=== PATIENT | female | born 1995 | race Caucasian/White ===

== ENCOUNTER → 2019-06-19 17:17 | Outpatient (BNVA) | payer OTHER, SELFPAY | PROVIDERS: Family Provider Family Medicine; PCP Family Medicine; Visit Provider Nurse Practitioner | DX: K52.9 Noninfective gastroenteritis and colitis, unspecified (principal) | CPT/HCPCS: 87804 ==

== ENCOUNTER 2019-07-14 18:08 | Emergency (ER) | payer OTHER, SELFPAY ==
[2019-07-14 18:38] VITALS: BP 153/121; PULSE 93; RESP 20; TEMP 36.7; O2SAT 99; BMI 49.7
--- NOTE | 2019-07-14 20:27 | W.ED.BACK ---
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[facility] [place] and she reached into pull a somewhat heavy laundry out of the machine with both arms and felt a twinge in her left shoulder area and then she continue to work and was reaching with her right arm and felt she felt a twinge and right side of her back MD elicited complaint: back pain and other Pertinent past history: prior back pain and other (Left posterior shoulder says she has a bad left shoulder) Onset (ago): hour(s) Timing: constant Similar Symptoms Previously: No Quality: burning and aching Location: right lower back and left upper back Radiation: none Relieving factors: none Context: while lifting Associated symptoms: Deny abdominal pain, chills, fever(s), nausea or vomiting Review of Systems Const: Denies: fever, chills or body aches Eyes: Denies: change in vision or blurry vision ENMT: Denies: throat pain or nasal congestion Card: Denies: chest pain or shortness of breath on exertion Resp: Denies: shortness of breath, productive cough or non-productive cough GI: Denies: abdominal pain, nausea or vomiting Musc: Reports: joint pain (Left shoulder), limited range of motion and other (Back pain right side); Denies: extremity pain Skin/Breast: Denies: rash Neuro: Denies: headache Psych: Denies: anxiety or depression Zheng/Lymph: Denies: easy bruising PFSH ED PFSH: Statuses (acute, chronic, etc) shown below reflect problem list status as previously entered and may not be historically accurate Social History (Updated 06/19/19 @ 18:02 by Mirna Leahy LPN) Smoking and tobacco status: never smoked Female Reproductive History: Date of last menstrual period: 06/15/19 Physical Exam Const: COMMON NORMALS: no apparent distress, average body habitus and oriented x3 HENMT: COMMON NORMALS: normocephalic HEAD & SCALP: normal to inspection and normocephalic FACE & SINUS: normal facial exam Eye: COMMON NORMALS: conjunctivae normal GENERAL EYE: normal appearance of both eyes CONJUNCTIVA: Yes conjunctivae normal Neck/C-Spine: COMMON NORMALS: no JVD Chest: COMMONS NORMALS: inspection of chest normal Resp: COMMON NORMALS: normal respiratory effort and clear to auscultation bilaterally AUSCULTATION: clear to auscultation bilaterally Cardio: COMMON NORMALS: no JVD, regular rate and regular rhythm RATE: regular rate RHYTHM: regular rhythm GI: COMMON NORMALS: normal to inspection, nondistended, normoactive bowel sounds Back/Pelvis: GENERAL BACK: Yes other (Mild tenderness to the mid to low back on the right side unable to evaluate for swelling due to size patient ambulates without difficulty) Extremity: COMMON NORMALS: normal to inspection and full ROM LEFT UPPER EXTREMITY: Yes shoulder joint (Patient has tenderness from the shoulder to her neck to the base the trapezius is tender to touch which limits range of motion of her left arm shoulder joint appears intact Apley scratch test is negative from the inferior aspect has good rotation neurovascular is intact) Neuro: COMMON NORMALS: oriented x3 Course Vital Signs: Vital signs: Vital Signs Temperature 98.1 F 07/14/19 18:38 Pulse Rate 93 07/14/19 18:38 Respiratory Rate 20 H 07/14/19 18:38 Blood Pressure 153/121 07/14/19 18:38 Pulse Oximetry 99 07/14/19 18:38 MDM - Back Pain/Injury MDM Narrative: Medical decision making narrative: Patient follow-up in [employer] tomorrow before returning back to work Discharge Plan Discharge Patient Disposition: Home, Self-Care Clinical Impression: Trapezius muscle strain Qualifiers: Encounter type: initial encounter Laterality: left Qualified Code(s): S46.812A - Strain of other muscles, fascia and tendons at shoulder and upper arm level, left arm, initial encounter Back strain Qualifiers: Encounter type: initial encounter Qualified Code(s): S39.012A - Strain of muscle, fascia and tendon of lower back, initial encounter Condition: Stable Prescriptions: No Action Control PO DAILY RF: 0 Discharge Orders: Discharge Order (Routine); Ordered 07/14/19 Ordered By: Alexandr Garcia Referrals: Nadia Amaya DO [Primary Care Provider] - Discharge Diet: Usual diet Discharge Activity: Limit activity as instructed Patient Instructions: Muscle Strain (ED), Low Back Strain (ED) Activity Restrictions/Additional Instructions: See work comp form follow-up with [employer] Coding Level of Care Code ED Core 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
[2019-07-14 20:32] VITALS: BP 129/65; PULSE 84; RESP 16; TEMP 36.7; O2SAT 100
[2019-07-14 20:42] VITALS: BP 129/65; PULSE 84; RESP 16; TEMP 36.7; O2SAT 100
== END 2019-07-14 20:48 | disposition home or self-care (01) ==
PROVIDERS: Emergency Provider Nurse Practitioner Family; Family Provider Family Medicine; PCP Family Medicine
DX: S39.012A Strain of muscle, fascia and tendon of lower back, initial encounter (principal); S46.812A Strain of other muscles, fascia and tendons at shoulder and upper arm level, left arm, initial encounter; X50.0XXA Overexertion from strenuous movement or load, initial encounter
CPT/HCPCS: 99281; 99282

== ENCOUNTER 2019-08-14 14:39 | Outpatient (RCR) | payer OTHER, SELFPAY | END 2019-08-16 23:59 | disposition home or self-care (01) | LOC: SPT 14:39 | PROVIDERS: Family Provider Family Medicine; PCP Family Medicine; Referring Provider Family Medicine; Visit Provider Family Medicine | DX: S46.002D Unspecified injury of muscle(s) and tendon(s) of the rotator cuff of left shoulder, subsequent encounter (principal); X58.XXXD Exposure to other specified factors, subsequent encounter | CPT/HCPCS: 97110; 97162 ==

== ENCOUNTER 2019-09-15 13:35 | Outpatient (RCR) | payer OTHER, SELFPAY | END 2019-09-16 23:59 | disposition home or self-care (01) | LOC: SPT 13:35 | PROVIDERS: Family Provider Family Medicine; Referring Provider Orthopaedic Surgery; Visit Provider Orthopaedic Surgery | DX: S46.912A Strain of unspecified muscle, fascia and tendon at shoulder and upper arm level, left arm, initial encounter (principal); X58.XXXA Exposure to other specified factors, initial encounter | CPT/HCPCS: 97110; 97162 ==

== ENCOUNTER 2019-09-17 06:00 | Outpatient (RCR) | payer OTHER, SELFPAY | END 2019-10-16 23:59 | disposition home or self-care (01) | LOC: SPT 06:00 | PROVIDERS: Family Provider Family Medicine; Referring Provider Orthopaedic Surgery; Visit Provider Orthopaedic Surgery | DX: S46.912A Strain of unspecified muscle, fascia and tendon at shoulder and upper arm level, left arm, initial encounter (principal) | CPT/HCPCS: 97110 ==

== ENCOUNTER 2019-10-17 06:00 | Outpatient (RCR) | payer OTHER, SELFPAY | END 2019-11-16 23:59 | disposition home or self-care (01) | LOC: SPT 06:00 | PROVIDERS: PCP Family Medicine; Referring Provider Orthopaedic Surgery; Visit Provider Orthopaedic Surgery | DX: S46.812D Strain of other muscles, fascia and tendons at shoulder and upper arm level, left arm, subsequent encounter (principal); X58.XXXD Exposure to other specified factors, subsequent encounter | CPT/HCPCS: 97110 ==

== ENCOUNTER 2020-04-01 13:04 | Outpatient (CLI) | payer OTHER, SELFPAY ==
--- NOTE | 2020-04-01 13:15 | XR_ITS ---
WS: [id number] Left scapula, 2 views, 04/01/2020 Clinical Data: PAIN IN L SHOULDER Comparison: None. Findings: The scapula shows no fractures. There are no erosions. The axillary border and medial border are norm al. The adjacent left humerus and the left AC joint are normal. The soft tissues are unremarkable. XR/[place] [id number] Impression: Negative left scapula.
--- NOTE | 2020-04-01 13:15 | XR_ITS ---
WS: [id number] Left shoulder, 3 views, 04/01/2020 Clinical Data: PAIN IN LEFT SHOULDER Comparison: None. Findings: No fractures or dislocations are seen. The AC joint is normal. The adjacent left clavicle, left scapu la and ribs are normal. The soft tissues are unremarkable. XR/XR shoulder LT min 2V* [id number] Impression: Negative left shoulder.
[2020-04-01 13:49] LABS: Basophils # 0.1 10^3/uL (0.0-0.1); Basophils % 0.8 %; Eosinophils # 0.2 10^3/uL (0.0-0.8); Eosinophils % 2.4 %; Hemoglobin 11.9 g/dL (11.5-15.3); Lymphocytes # 1.7 10^3/uL (0.8-4.8); Lymphocytes % 23.1 %; Mean Corpuscular HGB Conc 30.5 g/dL (30.0-36.0); Mean Corpuscular Hemoglobin 24.9 pg (28.0-34.0); Mean Corpuscular Volume 81.8 fL (81-99); Monocytes # 0.4 10^3/uL (0.2-0.9); Neutrophils # 5.07 10^3/uL (1.8-7.7); Neutrophils % 68.4 %; Nucleated Red Blood Cells % 0 %; Platelet Count 373 10^3/cmm (130-400); Red Blood Count 4.77 10^6/uL (4.1-5.3); Red Cell Distribution Width 15.4 % (12.1-15.1); White Blood Count 7.4 10^3/uL (4.0-10.0)
[2020-04-01 14:41] LABS: Alanine Aminotransferase 29 U/L (0-33); Albumin Level 4.1 g/dL (3.5-5.2); Alkaline Phosphatase 63 IU/L (35-105); Anion Gap 15.2 (5-19); Aspartate Amino Transferase 31 U/L (0-32); Blood Urea Nitrogen 12 mg/dL (6-20); Calcium 9.8 mg/dL (8.5-10.5); Carbon Dioxide 25 mmol/L (22-29); Chloride 105 mmol/L (98-107); Chol HDL Ratio 3.75 mg/dL (0.0-4.40); Cholesterol 191 mg/dL (0-200); Free T4 Free Thyroxine 1.41 ng/dL (0.82-1.77); Globulin 3.8 g/dL (1.3-4.6); Glomerular Filtration Rate 86.7 mL/min (90-130); Glucose 137 mg/dL (65-115); HDL Cholesterol 51 mg/dL (60-100); LDL Cholesterol Calculated 109 mg/dL (50-129); LDL HDL Ratio 2.14 RATIO (0.00-3.22); Osmolality Calculated 294 mOsm/kg (285-295); Potassium 4.2 mmol/L (3.5-5.1); Sodium 141 mmol/L (136-145); Thyroid Stimulating Hormone 0.89 uIU/mL (0.27-4.20); Total Bilirubin 0.2 mg/dL (0.15-1.2); Total Protein 7.9 g/dL (6.6-8.7); Triglycerides 153 mg/dL (0-150)
== END 2020-04-01 13:05 | disposition home or self-care (01) ==
LOC: RAD 13:11
PROVIDERS: PCP Family Medicine; Visit Provider Nurse Practitioner Family
DX: M25.512 Pain in left shoulder (principal); I10 Essential (primary) hypertension
CPT/HCPCS: 36415; 73010; 73030; 80053; 80061; 84439; 84443; 85025

== ENCOUNTER 2020-06-15 12:49 | Outpatient (CLI) | payer OTHER, SELFPAY ==
[2020-06-15 13:41] LABS: Anion Gap 15.3 (5-19); Blood Urea Nitrogen 11 mg/dL (6-20); Calcium 9.7 mg/dL (8.5-10.5); Carbon Dioxide 24 mmol/L (22-29); Chloride 102 mmol/L (98-107); Glomerular Filtration Rate 86.7 mL/min (90-130); Glucose 89 mg/dL (65-115); Osmolality Calculated 283 mOsm/kg (285-295); Potassium 4.3 mmol/L (3.5-5.1); Sodium 137 mmol/L (136-145)
[2020-06-15 14:32] LABS: Creatinine Urine, Random 174 mg/dL (28-217)
[2020-06-15 14:38] LABS: Microalbum Creatinine Ratio Ur 6 mg/dL (0-20)
[2020-06-15 14:39] LABS: Microalbumin Random Urine < 1 ug/dL (0-20)
== END 2020-06-15 12:50 | disposition home or self-care (01) ==
LOC: LAB 12:54
PROVIDERS: Visit Provider Nurse Practitioner Family
DX: I10 Essential (primary) hypertension (principal)
CPT/HCPCS: 36415; 80048; 82044

== ENCOUNTER → 2020-07-19 15:20 | Outpatient (BNVA) | payer OTHER, SELFPAY | PROVIDERS: Visit Provider Internal Medicine | DX: E28.2 Polycystic ovarian syndrome (principal) | CPT/HCPCS: 99203 ==

== ENCOUNTER → 2020-09-20 12:58 | Outpatient (BNVA) | payer OTHER, SELFPAY | PROVIDERS: Visit Provider Orthopaedic Surgery | DX: Z01.812 Encounter for preprocedural laboratory examination (principal); Z20.822 Contact with and (suspected) exposure to COVID-19 | CPT/HCPCS: 87635 ==

== ENCOUNTER 2020-10-18 16:26 | Outpatient (CLI) | payer OTHER, SELFPAY ==
[2020-10-18 17:20] LABS: Anion Gap 14.1 (5-19); Blood Urea Nitrogen 15 mg/dL (6-20); Calcium 8.8 mg/dL (8.5-10.5); Carbon Dioxide 26 mmol/L (22-29); Chloride 102 mmol/L (98-107); Glomerular Filtration Rate 101.1 mL/min (90-130); Glucose 87 mg/dL (65-115); Osmolality Calculated 286 mOsm/kg (285-295); Potassium 4.1 mmol/L (3.5-5.1); Sodium 138 mmol/L (136-145)
== END 2020-10-18 16:27 | disposition home or self-care (01) ==
PROVIDERS: PCP Family Medicine; Visit Provider Family Medicine
DX: N18.2 Chronic kidney disease, stage 2 (mild) (principal); D64.9 Anemia, unspecified
CPT/HCPCS: 36415; 80048

== ENCOUNTER 2020-11-07 09:28 | Emergency (ER) | payer OTHER, SELFPAY ==
--- NOTE | 2020-11-07 09:36 | ED_ITS ---
HPI - Neck Pain/Injury General: Chief Complaint: Neck Pain/Injury Stated Complaint: neck pain Time Seen by Provider: 11/07/20 09:30 Source: patient Mode of arrival: ambulatory Limitations: no limitations History of Present Illness: HPI Narrative: Patient is a 25-year-old female who presents to ED today with a complaint of right-sided neck pain. Patient states that she woke up this morning she was turning over in bed and heard a pop and immediately began feeling pain to the right side of her neck. She reports pain is worse with movement of her neck. She has no other complaints at this time. MD complaint: neck pain Onset (ago): hour(s) Place: home Radiation: right lateral and occiput Severity: moderate Duration: constant Relieving factors: immobilization Exacerbating factors: movement of neck Context: turning/bending and other Associated symptoms: Reports no associated symptoms; Denies difficulty walking, dizziness, headache(s) or nausea Treatments prior to arrival: acetaminophen Review of Systems Const: Denies: fever(s) Eyes: Denies: change in vision, blurry vision, blind spots, photophobia, floaters or seeing flashes ENMT: Denies: throat pain, odynophagia, hoarseness, ear or mastoid pain, ear discharge, change in hearing or tinnitus Card: Denies: chest pain Resp: Denies: dyspnea GI: Denies: nausea or vomiting Musc: Reports: neck pain; Denies: back pain or joint pain Neuro: Denies: headache(s), lack of coordination, difficulty walking, dizziness or Slurred speech present [facility] ED PFSH: Medical History (Updated 11/07/20 @ 11:25 by MARK Valencia) Hidradenitis suppurativa No pertinent past medical history Denies diabetes, asthma, hypertension, seizures, DVT/PE PCP: Dr. Salas PCOS (polycystic ovarian syndrome) Diagnosed with PCOS at the age of 17 when she had irregular cycles. States that she had a hemoglobin A1c in 2020 that was 5.3. Surgical History S/P adenoidectomy At the age of 6 Family History Grandfather Heart disease maternal Diabetes paternal and maternal Grandmother Diabetes maternal Heart disease paternal Stroke paternal Father Diabetes Brother Thyroid condition Mother Hypertension Denies family history of Colon cancer Ovarian cancer Hyperlipidemia Breast cancer Uterine cancer Social History Smoking and tobacco status: never smoked Alcohol intake: never Current occupation: [employer] Female Reproductive History: Date of last menstrual period: 06/15/19 Physical Exam Const: COMMON NORMALS: no acute distress, patient oriented x3, no limitations and alert GENERAL APPEARANCE: cooperative NUTRITIONAL APPEARANCE: obese morbidly obese ORIENTATION/CONSCIOUSNESS: Yes awake, Yes oriented to person, Yes oriented to place and Yes oriented to time HENMT: COMMON NORMALS: normocephalic and atraumatic HEAD & SCALP: normal to inspection, normocephalic and atraumatic FACE & SINUS: normal facial exam THROAT: posterior oropharynx normal, tonsils normal and uvula midline Eye: COMMON NORMALS: Equal, round and reactive pupils present and EOMs intact bilaterally GENERAL EYE: appearance normal, both eyes and all related structures PUPIL: Yes Equal, round and reactive pupils present OTHER: no Jennifer's syndrome Neck/C-Spine: COMMON NORMALS: no lymphadenopathy GENERAL: Yes normal visual inspection CAROTIDS: No bruit CERVICAL SPINE: No Cervical spine tenderness, No step off deformity and Yes Paracervical muscle tenderness OTHER: pain worse with looking right and right lateral flexion NECK IMAGES: 1. TTP Neuro: RONAN COMA SCALE: document GCS findings Ronan coma scale eye opening: Spontaneous Ronan coma scale verbal response: Orientated Ronan coma scale motor response: Obey commands Rosamond coma scale total score: 15 COMMON NORMALS: patient oriented x3, CN's II-XII intact bilaterally, moves all extremities, no focal motor deficits and no sensory deficits noted SENSORIUM/ORIENTATION: Yes alert, Yes oriented to person, Yes oriented to place and Yes oriented to time CRANIAL NERVES: Yes CN normal except as noted Skin: COMMON NORMALS: no rashes or lesions noted GENERAL SKIN EXAM: no rashes or lesions noted TRAUMA: no lacerations or abrasions Course Vital Signs: Vital signs: Vital Signs Temperature 98.7 F 11/07/20 11:35 Pulse Rate 80 11/07/20 11:35 Respiratory Rate 18 11/07/20 11:35 Blood Pressure 145/79 11/07/20 11:35 Pulse Oximetry 98 11/07/20 11:35 MDM - Neck Pain/Injury MDM Narrative: Medical decision making narrative: Pain reproduced with rotation to the right and right lateral flexion. She will be treated with NSAIDS/muscle relaxers/steroids. Recommend heat at home. Return to ED precauti ons given. I think a vertebral artery dissection would be very unlikely given her history and physical exam nonetheless she will be given instructions on return to ED precautions. Imaging Data^: XR cervical : Radiologist's impression: [address] [address] XRay Report Signed Patient: Maida Gomez Unit #: [id number] : [id number] Age/Sex: 25 / F ADM Date: 11/07/20 Loc: ER Room/Bed: Attending Dr: Ordering Provider/Ordering MD: pAril Holder Date of Service: 11/07/20 Procedure(s): XR cervical spine 3V* [id number] Accession Number(s): [id number] Report Number: [id number] PROCEDURE INFORMATION: Exam: XR Cervical Spine Exam date and time: 11/07/2020 10:22 AM Age: 25 years old Clinical indication: Neck pain TECHNIQUE: Imaging protocol: XR of the cervical spine. Views: 2 or 3 views. COMPARISON: No relevant prior studies available. FINDINGS: Bones/joints: Normal. No acute fracture. Normal alignment. Soft tissues: Unremarkable. XR/XR cervical spine 3V* [id number] IMPRESSION: No acute findings. Dictated By: Alexandr Ambrose MD Signed By: Alexandr Ambrose MD Signed Date/Time: 11/07/20 1121 DD/ 1120 Discharge Plan Discharge Patient Disposition: Home Clinical Impression: Neck strain Qualifiers: Encounter type: initial encounter Qualified Code(s): S16.1XXA - Strain of muscle, fascia and tendon at neck level, initial encounter Condition: Stable Prescriptions: New prednisone 10 mg tablet 60 mg PO DAILY 5 Days Qty: 30 RF: 0 ibuprofen 800 mg tablet 800 mg PO Q8H PRN (Reason: pain) Qty: 20 RF: 0 Valium 5 mg tablet 5 mg PO Q8H PRN (Reason: muscle spasm) Qty: 10 RF: 0 No Action acetaminophen [Tylenol 8 Hour] 650 mg tablet extended release 650 mg PO Q12H PRN (Reason: Pain) RF: 0 triamcinolone acetonide 0.1 % ointment 1 applic topical BID Qty: 80 RF: 0 clindamycin phosphate 1 % lotion 1 applic topical BID PRN (Reason: UNKNOWN) RF: 0 clobetasol 0.05 % ointment 1 applic topical BID PRN (Reason: UNKNOWN) RF: 0 norethindrone-e.estradiol-iron [Junel FE 07/07 (28)] 1 mg-20 mcg (21)/75 mg (7) tablet 1 tab PO DAILY Qty: 84 RF: 1 Discharge Orders: Discharge ED (Routine); Ordered 11/07/20 Ordered By: April Holder Referrals: Slim Salas MD [Primary Care Provider] - Patient Instructions: Muscle Strain (ED) Activity Restrictions/Additional Instructions: In addition to the medications prescribed today you may also try heat. Return to the emergency department for worsening neck pain, severe headache, facial asymmetry/paralysis, severe dizziness/lightheadedness, or any other concerns you may have. Stand Alone Forms: Work/School Release Coding Level of Care Code ED Manager Credit Risk for Chg Fwd Exam Detailed
[2020-11-07 09:38] VITALS: BP 204/120; PULSE 92; RESP 18; TEMP 37.1; O2SAT 99; BMI 48.7
[2020-11-07 09:43] VITALS: BP 145/76; PULSE 79; RESP 18; O2SAT 99
[2020-11-07] MEDS: ketorolac 60 mg/2 mL INJ IM (09:49)
[2020-11-07] MEDS: orphenadrine 30 mg/mL Inj 2 mL 60 MG IM (09:49)
--- NOTE | 2020-11-07 10:22 | XRR_ITS ---
PROCEDURE INFORMATION: Exam: XR Cervical Spine Exam date and time: 11/07/2020 10:22 AM Age: 25 years old Clinical indication: Neck pain TECHNIQUE: Imaging protocol: XR of the cervical spine. Views: 2 or 3 views. COMPARISON: No relevant prior studies available. FINDINGS: Bones/joints: Normal. No acute fracture. Normal alignment. Soft tissues: Unremarkable. XR/XR cervical spine 3V* [id number] IMPRESSION: No acute findings.
[2020-11-07 11:35] VITALS: BP 145/79; PULSE 80; RESP 18; TEMP 37.1; O2SAT 98
== END 2020-11-07 11:37 | disposition home or self-care (01) ==
PROVIDERS: Emergency Provider Physician Assistant; PCP Family Medicine
DX: S16.1XXA Strain of muscle, fascia and tendon at neck level, initial encounter (principal); X58.XXXA Exposure to other specified factors, initial encounter
CPT/HCPCS: 72040; 96372; 99283; J1885; J2360

== ENCOUNTER 2021-06-29 10:05 | Outpatient (CLI) | payer OTHER, SELFPAY ==
[2021-06-29 10:30] LABS: Basophils # 0.1 10^3/uL (0.0-0.1); Basophils % 0.7 %; Eosinophils # 0.2 10^3/uL (0.0-0.8); Hematocrit 41.5 % (37.0-47.0); Hemoglobin 12.7 g/dL (11.5-15.3); Lymphocytes # 1.7 10^3/uL (0.8-4.8); Mean Corpuscular HGB Conc 30.6 g/dL (30.0-36.0); Mean Corpuscular Hemoglobin 26.5 pg (28.0-34.0); Mean Corpuscular Volume 86.6 fl (81-99); Mean Platelet Volume 9.9 fL (7.4-10.4); Monocytes # 0.4 10^3/uL (0.2-0.9); Monocytes % 5.7 %; Neutrophils # 4.62 10^3/uL (1.8-7.7); Neutrophils % 66.3 %; Nucleated Red Blood Cells % 0 %; Platelet Count 357 10^3/cmm (130-400); Red Blood Count 4.79 10^6/uL (4.1-5.3)
[2021-06-29 10:53] LABS: Alanine Aminotransferase 14 U/L (0-33); Albumin Level 4.2 g/dL (3.5-5.2); Alkaline Phosphatase 60 IU/L (35-105); Anion Gap 17.1 (5-19); Aspartate Amino Transferase 13 U/L (0-32); Blood Urea Nitrogen 13 mg/dL (6-20); Calcium 8.6 mg/dL (8.5-10.5); Carbon Dioxide 22 mmol/L (22-29); Chloride 103 mmol/L (98-107); Globulin 2.9 g/dL (1.3-4.6); Glomerular Filtration Rate 100.4 mL/min (90-130); Glucose 92 mg/dL (65-115); Osmolality Calculated 286 mOsm/kg (285-295); Potassium 4.1 mmol/L (3.5-5.1); Sodium 138 mmol/L (136-145); Total Bilirubin 0.3 mg/dL (0.15-1.2); Total Protein 7.1 g/dL (6.6-8.7)
== END 2021-06-29 10:06 | disposition home or self-care (01) ==
LOC: LAB 10:11
PROVIDERS: PCP Family Medicine; Visit Provider Family Medicine
DX: Z00.00 Encounter for general adult medical examination without abnormal findings (principal); Z13.220 Encounter for screening for lipoid disorders
CPT/HCPCS: 36415; 80053; 85025

== ENCOUNTER 2021-07-27 09:57 | Emergency (ER) | payer OTHER, SELFPAY ==
[2021-07-27 10:00] VITALS: BP 159/85; PULSE 93; RESP 16; TEMP 36.5; O2SAT 92; BMI 50.8
--- NOTE | 2021-07-27 10:07 | XR_ITS ---
WS: [id number] XR knee LT 3V* [id number] REASON FOR EXAM: left knee injury- fall FINDINGS: No fracture. Small exostosis in the metadiaphyseal region of the proximal left tibia laterally. The medial, lateral, and patellofemoral joint spaces are well preserved. No soft tissue abnormality. XR/XR knee LT 3V* [id number] IMPRESSION: No acute abnormality.
--- NOTE | 2021-07-27 10:29 | W.ED.EXTPRO ---
HPI - Extremity Problem General: Chief complaint: Extremity Injury, Lower Stated complaint: Lt Knee pain Time Seen by Provider: 07/27/21 10:10 History of Present Illness: Patient is a 26-year-old female who comes to the ED with left knee injury. Injury occurred just prior to arrival. She was walking in the parking lot and slipped on some snow and ice. She fell down in her left knee hit the pavement. She had a superficial abrasion on her left knee. She cleaned it up and placed a Band-Aid on abrasion. Says she has pain whenever she straightens out her left knee. She is able to walk and bear some weight on left leg but does limp a little bit. She took some Tylenol before coming to the ED. Pain is mild and she rates it a 5 out of 10. Denies any head injuries, loss of consciousness or any other symptoms. Associated symptoms: Deny chest pain, fever(s) or rash Review of Systems Const: Denies: fever(s), chills or fatigue Eyes: Denies: change in vision or eye discomfort ENMT: Denies: throat pain, odynophagia, nasal discharge or nasal congestion Card: Denies: chest pain, palpitations, edema, swelling of feet/ankles, dyspnea on exertion or orthopnea Resp: Denies: dyspnea, productive cough or non-productive cough GI: Denies: abdominal pain, nausea, vomiting, diarrhea, constipation or hematochezia : Denies: flank pain, dysuria or hematuria Musc: Denies: neck pain, back pain or extremity swelling Skin/Breast: Denies: rash or new lesions Neuro: Denies: headache(s), numbness in extremities or weakness in extremities PFSH ED PFSH: Medical History Hidradenitis suppurativa On topical clindamycin---follows up with Dr. Wallace No pertinent past medical history Denies diabetes, asthma, hypertension, seizures, DVT/PE PCP: Dr. Salas PCOS (polycystic ovarian syndrome) Diagnosed with PCOS at the age of 17 when she had irregular cycles. States that she had a hemoglobin A1c in 2020 that was 5.3. Surgical History S/P adenoidectomy At the age of 6 Family History Grandfather Heart disease maternal Diabetes paternal and maternal Grandmother Diabetes maternal Heart disease paternal Stroke paternal Father Diabetes Brother Thyroid condition Mother Hypertension Denies family history of Colon cancer Ovarian cancer Hyperlipidemia Breast cancer Uterine cancer Social History Smoking and tobacco status: never smoked Alcohol intake: never Current occupation: [employer] Female Reproductive History: Date of last menstrual period: 07/20/21 Physical Exam Const: COMMON NORMALS: no acute distress, patient oriented x3 and alert GENERAL APPEARANCE: cooperative and comfortable NUTRITIONAL APPEARANCE: obese HENMT: COMMON NORMALS: normocephalic HEAD & SCALP: normocephalic MOUTH: Normal oral and palatal mucosa present THROAT: posterior oropharynx normal and uvula midline Neck/C-Spine: COMMON NORMALS: supple GENERAL: Yes normal visual inspection Resp: COMMON NORMALS: normal respiratory effort, No retractions, No use of accessory muscles and clear to auscultation bilaterally AUSCULTATION: clear to auscultation bilaterally Cardio: COMMON NORMALS: regular rate, regular rhythm, S1 normal heart sound present, S2 normal heart sound present, No gallops present (Cardio), No clicks present (Cardio), No murmurs present (Cardio) and Peripheral pulses 2+ throughout RATE: regular rate RHYTHM: regular rhythm HEART SOUNDS: S1 normal heart sound present and S2 normal heart sound present PERIPHERAL PULSES: Peripheral pulses 2+ throughout GI: COMMON NORMALS: Normal to inspection, nondistended, normoactive bowel sounds present, Soft to palpation, non-tender and no masses PALPATION: Yes Soft to palpation : COMMON NORMALS: Yes no CVA tenderness BLADDER/KIDNEY EXAM: Yes no CVA tenderness Back/Pelvis: COMMON NORMALS: no CVA tenderness Extremity: NARRATIVE EXTREMITY EXAM: Left knee?superficial abrasion noted over patella. No erythema, ecchymosis or swelling noted. Patient has some tenderness over patella. Neurovascular intact distally. Full range of motion but says she feels pain with extension of knee. Neuro: COMMON NORMALS: patient oriented x3 and moves all extremities SENSORIUM/ORIENTATION: Yes alert Skin: GENERAL SKIN EXAM: dry skin TRAUMA: abrasion (Superficial abrasion on left knee) Course Vital Signs: Vital signs: Vital Signs Temperature 97.7 F 07/27/21 10:41 Pulse Rate 86 07/27/21 10:41 Respiratory Rate 16 07/27/21 10:41 Blood Pressure 141/99 07/27/21 10:41 Pulse Oximetry 98 07/27/21 10:41 MDM - Extremity (Nontraumatic) Medical Decision Making Patient is a 26-year-old female comes to the ED with left knee injury. Patient slipped on some snow and ice in the parking lot and her left knee went down and hit the pavement. She has a superficial abrasion to the left knee with some tenderness over the patella. Neurovascular tact. X-ray of left knee showed no acute fractures or findings. Patient diagnosed with left knee contusion and left knee abrasion. Told to follow-up with PCP in 7 to 10 days for reevaluation. Return to ED precautions given. Patient stood agree with plan peer Lab Data Radiology Impressions Knee X-Ray 07/27/21 10:07 IMPRESSION: No acute abnormality. Discharge Plan Discharge Patient Disposition: Home Clinical Impression: Contusion of left knee Qualifiers: Encounter type: initial encounter Qualified Code(s): S80.02XA - Contusion of left knee, initial encounter Abrasion of knee, left Qualifiers: Encounter type: initial encounter Qualified Code(s): S80.212A - Abrasion, left knee, initial encounter Condition: Stable Prescriptions: No Action acetaminophen [Tylenol 8 Hour] 650 mg tablet extended release 650 mg PO Q12H PRN (Reason: Pain) 0RF cyclobenzaprine 10 mg tablet 10 mg PO TID PRN0RF omega-3 fatty acids [Fish Oil Concentrate] 1,000 mg capsule 1,000 mg PO DAILY 0RF biotin 2,500 mcg capsule 5 mg PO DAILY 0RF Haroon Probiotic 14 billion cell capsule PO 0RF Collagen Plus Vitamin C 125-740 mg capsule PO 0RF norethindrone-e.estradiol-iron [June FE 07/07 (28)] 1 mg-20 mcg (21)/75 mg (7) tablet 1 tab PO DAILY Qty: 84 3RF triamcinolone acetonide 0.1 % ointment 1 applic topical BID Qty: 80 0RF Rx Instructions: Apply to affected areas on hands and ankle no more than 2 wks/mo prn clindamycin phosphate 1 % lotion 1 applic topical BID PRN (Reason: UNKNOWN) 0RF Rx Instructions: Apply to axillae, groin, waistline 1-2 times daily clobetasol 0.05 % ointment 1 applic topical BID PRN (Reason: UNKNOWN) 0RF Rx Instructions: to hands and ankles BID x 2 weeks alternating with triamcinolone doxycycline hyclate 100 mg capsule 100 mg PO DAILY Qty: 30 1RF mupirocin 2 % ointment 1 applic topical BID Qty: 22 1RF Rx Instructions: Apply to affected area until healed ibuprofen 800 mg tablet 800 mg PO Q8H PRN (Reason: pain) Qty: 20 0RF Discharge Orders: Discharge ED (Routine); Ordered 07/27/21 Ordered By: Slim Prado Referrals: [facility], [Primary Care Provider] - Discharge Diet: Regular Discharge Activity: Increase activity as tolerated Patient Instructions: Abrasion (ED), Knee Pain (ED) Activity Restrictions/Additional Instructions: Follow-up with medical provider as directed in 7 to 10 days for reevaluation. Rest, ice and elevate left knee. Return to the ER or your medical provider if condition worsens. Please read and understand discharge instructions. Thank you for choosing [facility] for your healthcare needs today. Please realize this is an emergency room and that we are providing you with a medical screening exam and this may not be complete and all inclusive of all the testing and or work up that you may need to determine your ailment or severity of your illness. It is very important that you follow up as instructed or that you return to the Emergency Department should you have concerns or if your condition changes or worsens in any way. Coding Level of Care Code ED Clinical Researcher for Jared Mirza Exam Comprehensive
[2021-07-27 10:41] VITALS: BP 141/99; PULSE 86; RESP 16; TEMP 36.5; O2SAT 98
== END 2021-07-27 10:50 | disposition home or self-care (01) ==
PROVIDERS: Emergency Provider Physician Assistant
DX: S80.02XA Contusion of left knee, initial encounter (principal); S80.212A Abrasion, left knee, initial encounter; W00.0XXA Fall on same level due to ice and snow, initial encounter
CPT/HCPCS: 73562; 99282

== ENCOUNTER 2021-08-30 12:33 | Outpatient (CLI) | payer SELFPAY ==
[2021-08-30 12:43] LABS: HF Add Manual Diff No
[2021-08-30 13:41] LABS: Basophils # 0.1 10^3/uL (0.0-0.1); Basophils % 0.7 %; Eosinophils # 0.2 10^3/uL (0.0-0.8); Eosinophils % 2.6 %; Hematocrit 38.5 % (37.0-47.0); Hemoglobin 12.1 g/dL (11.5-15.3); Lymphocytes % 22.9 %; Mean Corpuscular HGB Conc 31.4 g/dL (30.0-36.0); Mean Corpuscular Hemoglobin 27.3 pg (28.0-34.0); Mean Corpuscular Volume 86.9 fl (81-99); Mean Platelet Volume 10.3 fL (7.4-10.4); Monocytes # 0.6 10^3/uL (0.2-0.9); Monocytes % 7.1 %; Neutrophils # 5.92 10^3/uL (1.8-7.7); Neutrophils % 66.5 %; Nucleated Red Blood Cells % 0 %; Platelet Count 353 10^3/cmm (130-400); Red Blood Count 4.43 10^6/uL (4.1-5.3); Red Cell Distribution Width 13.3 % (12.1-15.1); White Blood Count 8.9 10^3/uL (4.0-10.0)
[2021-08-30 13:56] LABS: Estmated Average Glucose 105; Hemoglobin A1C 5.3 % (4.0-6.0)
[2021-08-30 14:25] LABS: Alanine Aminotransferase 15 U/L (0-33); Albumin Level 4.3 g/dL (3.5-5.2); Alkaline Phosphatase 63 IU/L (35-105); Anion Gap 14.9 (5-19); Aspartate Amino Transferase 17 U/L (0-32); Blood Urea Nitrogen 12 mg/dL (6-20); Calcium 8.6 mg/dL (8.5-10.5); Carbon Dioxide 24 mmol/L (22-29); Chloride 103 mmol/L (98-107); Chol HDL Ratio 4.68 mg/dL (0.0-4.40); Cholesterol 192 mg/dL (0-200); Globulin 3.1 g/dL (1.3-4.6); Glucose 87 mg/dL (65-115); HDL Cholesterol 41 mg/dL (60-100); LDL Cholesterol Calculated 119 mg/dL (50-129); Osmolality Calculated 285 mOsm/kg (285-295); Potassium 3.9 mmol/L (3.5-5.1); Sodium 138 mmol/L (136-145); Total Bilirubin 0.2 mg/dL (0.15-1.2); Total Protein 7.4 g/dL (6.6-8.7); Triglycerides 160 mg/dL (0-150)
== END 2021-08-30 12:34 | disposition home or self-care (01) ==
PROVIDERS: Visit Provider Dermatology
DX: Z01.89 Encounter for other specified special examinations (principal)

== ENCOUNTER 2021-10-11 14:31 | Outpatient (CLI) | payer OTHER, SELFPAY ==
--- NOTE | 2021-10-11 14:53 | US_ITS ---
WS: [id number] Ultrasound LEFT chest wall. HISTORY: Superficial soft tissue mass LEFT posterior chest. Ultrasound is directed to the posterior LEFT chest by the patient. The palpable abnormality correspon ds to a very benign appearing lymph node measuring 1.2 x 0.8 x 1.2 cm. This lymph node is approximate ly 3.0 cm deep to the skin surface. No additional abnormality. US/US chest [id number] IMPRESSION: Palpable area in the posterior LEFT chest corresponds to a benign-appearing lym ph node.
== END 2021-10-11 14:32 | disposition home or self-care (01) ==
LOC: RAD 14:32
PROVIDERS: PCP Family Medicine; Visit Provider Dermatology
DX: R22.2 Localized swelling, mass and lump, trunk (principal); R59.0 Localized enlarged lymph nodes
CPT/HCPCS: 76604

== ENCOUNTER → 2021-11-04 14:29 | Outpatient (BNVA) | payer OTHER, SELFPAY | PROVIDERS: PCP Family Medicine; Visit Provider Clinical Nurse Specialist Adult Health | DX: R10.12 Left upper quadrant pain (principal) | CPT/HCPCS: 80053; 83690; 85025; 85651; 86140 ==

== ENCOUNTER 2021-11-10 06:07 | Outpatient (CLI) | payer OTHER, SELFPAY ==
--- NOTE | 2021-11-10 | US_ITS ---
WS: [id number] Complete ABDOMINAL ULTRASOUND HISTORY: Abdominal pain for one week. COMPARISON: 11/03/2018 Liver: 17.5 cm in length. Liver is slightly enlarged. Coarse echotexture with loss of the normal port al triads. At least moderate hepatic steatosis. The entire liver is not well visualized. No mass or b ile duct dilatation. Portal Vein: Normal hepatopetal flow with monophasic waveform. Gallbladder: Normally distended with no gallstones, wall thickening or pericholecystic fluid. Gallbladder wall thickness: 0.2 cm. Pancreas: Normal size and echogenicity. CBD: 0.3 cm. Right kidney: 10.7 cm x 3.9 cm x 4.1 cm. No mass, cortical thickening or hydronephrosis. Left kidney: 10.4 cm x 6.4 cm x 5.1 cm. No mass, cortical thickening or hydronephrosis. Spleen: Mildly enlarged spleen measuring 14.8 cm in length. Abdominal aorta and IVC are within normal limits. No ascites. US/US abdomen complete* [id number] IMPRESSION: 1. Quality of this examination is suboptimal due to patient's body habitus. 2. Mild hepatosplenomegaly. No bile duct dilatation. 3. Negative gallbladder. 4. Hepatic steatosis.
== END 2021-11-10 06:08 | disposition home or self-care (01) ==
LOC: RAD 06:07
PROVIDERS: PCP Family Medicine; Visit Provider Clinical Nurse Specialist Adult Health
DX: R10.12 Left upper quadrant pain (principal); R16.2 Hepatomegaly with splenomegaly, not elsewhere classified; K76.0 Fatty (change of) liver, not elsewhere classified
CPT/HCPCS: 76700

== ENCOUNTER 2022-01-10 11:39 | Outpatient (CLI) | payer OTHER, SELFPAY ==
--- NOTE | 2022-01-10 11:50 | XR_ITS ---
WS: [id number] Exam: XR thoracic spine 3V* [id number] Date/Time of Exam: 01/10/2022 11:51 AM Reason For Exam: thoracic radiculopathy No fracture or dislocation. No significant scoliosis. Paraspinal soft tissues are unremarkable. XR/XR thoracic spine 3V* [id number] IMPRESSION: 1. Unremarkable T-spine study.
== END 2022-01-10 11:40 | disposition home or self-care (01) ==
LOC: RAD 11:41
PROVIDERS: PCP Family Medicine; Visit Provider Family Medicine
DX: M54.14 Radiculopathy, thoracic region (principal)
CPT/HCPCS: 72072

== ENCOUNTER 2022-01-17 09:27 | Day surgery (SDC) | payer OTHER, SELFPAY ==
[2022-01-16 11:27] VITALS: BMI 51.6
[2022-01-17] VITALS (10 sets, daily range): BP systolic 102–155; BP diastolic 64–107; PULSE 75–101; RESP 16–20; TEMP 36.2–37.5; O2SAT 97–100
--- NOTE | 2022-01-17 08:54 | P.HP_ITS ---
Same Day Surgery H&P Indication for Procedure/HPI DATE OF PROCEDURE: January 17, 2022 CHIEF COMPLAINT/INDICATIONFOR SURGICAL PROCEDURE: excision left chest wall mass PREOP DIAGNOSIS: left chest wall mass PLANNED PROCEDURE: Operation Date: 01/17/22 11:55 Proposed Procedures p excision left chest wall mass 89687,R22.2(Left) - Doron Lloyd MD Medications/Allergies* Home Medications Medication Instructions Recorded Confirmed Type acetaminophen 650 mg 650 mg PO Q12H PRN Pain 08/22/19 01/16/22 History tablet,extended release (Tylenol 8 Hour) clobetasol 0.05 % topical ointment 1 applic topical BID PRN UNKNOWN 11/01/20 01/16/22 History Lactobacillus combo no.23 14 14 cell PO DAILY 03/28/21 01/16/22 History billion cell capsule (Haroon Probiotic) ascorbic acid 125 mg-collagen, 1 cap PO DAILY 03/28/21 01/16/22 History hydrolyzed 740 mg capsule (Collagen Plus Vitamin C) biotin 2,500 mcg capsule 5 mg PO DAILY 03/28/21 01/16/22 History cyclobenzaprine 10 mg tablet 10 mg PO TID PRN muscle spasms 03/28/21 01/16/22 History omega-3 fatty acids 1,000 mg 1,000 mg PO DAILY 03/28/21 01/16/22 History capsule (Fish Oil Concentrate) Allergies/Adverse Reactions Allergy/AdvReac Type Severity Reaction Status Date / Time pepper (genus Capsicum) Allergy Severe hives Verified 01/16/22 08:39 Pertinent History/Comorbid Conditions* Medical History (Updated 01/16/22 @ 13:55 by Doron Lloyd MD) Hidradenitis suppurativa On topical clindamycin---follows up with Dr. Wallace PCOS (polycystic ovarian syndrome) Diagnosed with PCOS at the age of 17 when she had irregular cycles. States that she had a hemoglobin A1c in 2020 that was 5.3. Surgical History (Updated 08/02/20 @ 22:56 by Mariana Pang MD) S/P adenoidectomy At the age of 6 Family History (Updated 07/19/20 @ 14:08 by Mirna Miranda RN) Diabetes Grandfather paternal and maternal Grandmother maternal Father Heart disease Grandfather maternal Grandmother paternal Hypertension Mother Thyroid condition Brother Stroke Grandmother paternal Denies family history of Colon cancer Ovarian cancer Hyperlipidemia Breast cancer Uterine cancer Social History Smoking and tobacco status: never smoked Alcohol intake: never Current occupation: [employer] Pertinent Exam Findings alert, oriented x 3 and regular rate & rhythm Recommendations Surgery/Procedure today Coding Level of Care Code Acute Supervisor Histology for Jared Mirza
[2022-01-17 09:30] LABS: OR HCG Qualitative Urine Negative (Negative)
[2022-01-17] MEDS: sodium chloride 0.9% 1,000 ML 30 ML IV (09:42)
--- NOTE | 2022-01-17 10:08 | P.ANESASSM_ITS ---
Pre-Anesthetic Assessment Height/Weight: Height 1.68 m Weight 145.15 kg Temp Pulse Resp BP Pulse Ox O2 Del Method 97.9 F 93 18 116/79 97 01/17/22 09:23 01/17/22 09:23 01/17/22 09:23 01/17/22 09:23 01/17/22 09:23 01/17/22 09:24 Preop Diagnosis: left chest mass Operation Date: 01/17/22 11:55 Proposed Procedures p excision left chest wall mass 04201,R22.2(Left) - Doron Lloyd MD Was Beta Live taken within 24 hours: N/A Was Clonidine taken within 24 hours: N/A Last intake: Intake Last Liquid Date 01/16/22 Last Liquid Time 22:00 Last Solid Date 01/16/22 Last Solid Time 18:30 Social No alcohol and No tobacco Exam alert, oriented x 3, clear to auscultation bilaterally and regular rate & rhythm Airway Submandibular: within normal limits Cervical ROM: within normal limits Mallampati: Class II Dentition: full History/ROS No significant history except as noted and No significant complaints Pulmonary None reported CV/HEM None reported None reported Hepatic None reported GI Gastroesophageal Reflux Disease Metabolic Morbid Ob[place] [facility] [place] None reported Neuropsych None reported Anesthetic Plan ASA status: 2 Anesthesia: MAC Risk of > 500 ml blood loss (7ml/kg in children): No Medications/Allergies Home Medications Medication Instructions Recorded Confirmed Last Taken Type acetaminophen 650 mg 650 mg PO Q12H PRN Pain 08/22/19 01/17/22 11/07/20 History tablet,extended release (Tylenol 8 Hour) triamcinolone acetonide 0.1 % 1 applic topical BID #80 grams 07/19/20 01/17/22 0 12/16/21 Rx topical ointment clobetasol 0.05 % topical ointment 1 applic topical BID PRN UNKNOWN 11/01/20 01/17/22 01/15/22 History ibuprofen 800 mg tablet 800 mg PO Q8H PRN pain #20 tabs 11/07/20 01/17/22 01/15/22 Rx Lactobacillus combo no.23 14 14 cell PO DAILY 03/28/21 01/17/22 01/15/22 History billion cell capsule (Haroon Probiotic) ascorbic acid 125 mg-collagen, 1 cap PO DAILY 1001/17/22 01/15/22 History hydrolyzed 740 mg capsule (Collagen Plus Vitamin C) biotin 2,500 mcg capsule 5 mg PO DAILY 03/28/21 01/17/22 01/15/22 History cyclobenzaprine 10 mg tablet 10 mg PO TID PRN muscle spasms 03/28/21 01/17/22 01/03/22 History omega-3 fatty acids 1,000 mg 1,000 mg PO DAILY 03/28/21 01/16/22 Unknown History capsule (Fish Oil Concentrate) hydrocortisone 2.5 % topical cream 1 applic topical BID #30 grams 11/02/21 01/17/22 12/27/21 Rx Allergies Allergy/AdvReac Type Severity Reaction Status Date / Time pepper (genus Capsicum) Allergy Severe hives Verified 01/17/22 09:15 Current Medications Generic Name Dose Route Start Last Admin Trade Name Freq PRN Reason Stop Dose Admin Sodium Chloride 1,000 mls @ 30 mls/hr 01/17/22 09:00 01/17/22 09:42 Sodium Chloride 0.9% IV 01/18/22 08:59 30 mls/hr .Q24H ALEXIA Administration PFS Anesthesia Medical History (Updated 01/16/22 @ 13:55 by Doron Lloyd MD) Hidradenitis suppurativa On topical clindamycin---follows up with Dr. Wallace PCOS (polycystic ovarian syndrome) Diagnosed with PCOS at the age of 17 when she had irregular cycles. States that she had a hemoglobin A1c in 2020 that was 5.3. Surgical History (Updated 01/17/22 @ 08:59 by Doron Lloyd MD) H/O excision of mass (01/17/22) left chest wall S/P adenoidectomy At the age of 6 Family History Grandfather Heart disease maternal Diabetes paternal and maternal Grandmother Diabetes maternal Heart disease paternal Stroke paternal Father Diabetes Brother Thyroid condition Mother Hypertension Denies family history of Colon cancer Ovarian cancer Hyperlipidemia Breast cancer Uterine cancer Social History Smoking and tobacco status: never smoked Alcohol intake: never Current occupation: [employer] [place] Female Reproductive History Date of last menstrual period: 01/16/22 Data Anesthesia Cardiac Studies: No Data to Display
[2022-01-17] MEDS: ceFAZolin 2,000 MG in sodium chloride 0.9% (plus) 50 ML 100 MG IV (10:09)
[2022-01-17] MEDS: lidocaine 2% INJ 20 mL INJECTION (10:32)
[2022-01-17] MEDS: fentaNYL 50 mcg/mL INJ 2mL IVP (11:07)
--- NOTE | 2022-01-17 15:49 | ANE.PACU2 ---
Inpatient post-anesthesia follow up: Airway intact: Yes Vital signs: Temperature 97.2 F Pulse Rate 75 Respiratory Rate 16 Blood Pressure 139/64 Pulse Oximetry 100 Oxygen Delivery Me thod Room Air Oxygen Flow Rate Fraction of Inspir ed Oxygen Hydration adequate: Yes Nausea and vomiting: No Pain level: 3 Mental status: Baseline
--- NOTE | 2022-01-18 11:51 | PM.OP ---
Operative Report Date of procedure: January 18, 2022 Pre-op diagnosis: Left chest wall mass Post-op diagnosis: 4 x 4 centimeter lipoma left chest Procedure done: Excision of subcutaneous mass left chest Specimens removed/disposition: Lipoma left chest Surgeon: Doron Lloyd Anesthesia: MAC Condition: stable Disposition: PACU Procedure: The patient was taken to the operating room and placed in the right lateral position under MAC after IV antibiotic had been administered. The left chest was prepped and draped in a sterile manner. 1% lidocaine with 0.25% Marcaine was infiltrated around the palpable mass which had been marked preoperatively. Using a 15 blade a 4 cm incision was made transversely, the subcutaneous tissue was divided and the palpable mass which appeared to be a lipoma was dissected free from the surrounding subcutaneous tissue and underlying muscular fascia and sent to pathology. The wound was irrigated with saline and subcutaneous tissues approximated in layers using interrupted 3-0 Vicryl suture. Skin was closed using a running subcuticular 4-0 Monocryl suture and Dermabond. The patient was transferred to recovery room in stable condition.
== END 2022-01-17 12:26 | disposition home or self-care (01) ==
PROVIDERS: PCP Family Medicine; Visit Provider Surgery
PROC: (CPT 11404; principal; 2022-01-17 11:45)
DX: D17.1 Benign lipomatous neoplasm of skin and subcutaneous tissue of trunk (principal); K21.9 Gastro-esophageal reflux disease without esophagitis; E66.01 Morbid (severe) obesity due to excess calories; Z68.43 Body mass index [BMI] 50.0-59.9, adult; E28.2 Polycystic ovarian syndrome
CPT/HCPCS: 11404; 12032; 81025; 84703; 88304; J2250; J2704; J3010; J3490; J7030

== ENCOUNTER → 2022-04-26 15:14 | Outpatient (BNVA) | payer OTHER, SELFPAY | PROVIDERS: PCP Family Medicine; Referring Provider Dermatology; Visit Provider Podiatrist Foot & Ankle Surgery | DX: M77.42 Metatarsalgia, left foot (principal); M21.621 Bunionette of right foot; M21.622 Bunionette of left foot; M72.2 Plantar fascial fibromatosis | CPT/HCPCS: 73610; 73630 ==

== ENCOUNTER 2022-07-31 15:56 | Outpatient (CLI) | payer OTHER, BC, SELFPAY ==
--- NOTE | 2022-07-31 16:08 | XRR_ITS ---
PROCEDURE INFORMATION: Exam: XR Right Hip Exam date and time: 07/31/2022 4:11 PM Age: 27 years old Clinical indication: Right hip; Patient HX: RT hip pain for several months, hip popped felt better but still hurts; Additional info: Right hip pain TECHNIQUE: Imaging protocol: Radiologic exam of the Right hip. Views: 1 view hip with pelvis when performed. COMPARISON: No relevant prior studies available. FINDINGS: Bones/joints: Unremarkable. No acute fracture. Soft tissues: Unremarkable. XR/XR hip RT 2-3V wo/w pel* [id number] IMPRESSION: No acute findings.
== END 2022-07-31 15:57 | disposition home or self-care (01) ==
PROVIDERS: PCP Family Medicine; Visit Provider Family Medicine
DX: M25.551 Pain in right hip (principal)
CPT/HCPCS: 73502

== ENCOUNTER 2022-08-01 09:25 | Outpatient (CLI) | payer OTHER, BC, SELFPAY ==
[2022-08-01 10:14] LABS: Basophils # 0.1 10^3/uL (0.0-0.1); Basophils % 0.9 %; Eosinophils # 0.2 10^3/uL (0.0-0.8); Eosinophils % 3.2 %; Hematocrit 38.5 % (37.0-47.0); Lymphocytes # 2.1 10^3/uL (0.8-4.8); Lymphocytes % 31.5 %; Mean Corpuscular HGB Conc 31.2 g/dL (30.0-36.0); Mean Corpuscular Volume 83.5 fl (81-99); Mean Platelet Volume 9.9 fL (7.4-10.4); Monocytes # 0.4 10^3/uL (0.2-0.9); Monocytes % 5.6 %; Neutrophils # 3.85 10^3/uL (1.8-7.7); Neutrophils % 58.5 %; Nucleated Red Blood Cells % 0 %; Platelet Count 411 10^3/cmm (130-400); Red Blood Count 4.61 10^6/uL (4.1-5.3); Red Cell Distribution Width 14.1 % (12.1-15.1); White Blood Count 6.6 10^3/uL (4.0-10.0)
[2022-08-01 10:32] LABS: Alanine Aminotransferase 19 U/L (0-33); Albumin Level 4.2 g/dL (3.5-5.2); Alkaline Phosphatase 72 U/L (35-105); Anion Gap 14.2 (5-19); Aspartate Amino Transferase 16 U/L (0-32); Blood Urea Nitrogen 12 mg/dL (6-20); Calcium 8.9 mg/dL (8.5-10.5); Carbon Dioxide 24 mmol/L (22-29); Chloride 104 mmol/L (98-107); Chol HDL Ratio 3.61 mg/dL (0.0-4.40); Cholesterol 159 mg/dL (0-200); Globulin 3.3 g/dL (1.3-4.6); Glomerular Filtration Rate 99.6 mL/min (90-130); Glucose 91 mg/dL (65-115); HDL Cholesterol 44 mg/dL (60-100); LDL Cholesterol Calculated 99 mg/dL (50-129); LDL HDL Ratio 2.25 RATIO (0.00-3.22); Osmolality Calculated 285 mOsm/kg (285-295); Potassium 4.2 mmol/L (3.5-5.1); Sodium 138 mmol/L (136-145); Thyroid Stimulating Hormone 2.27 uIU/mL (0.27-4.20); Total Bilirubin 0.2 mg/dL (0.15-1.2); Total Protein 7.5 g/dL (6.6-8.7); Triglycerides 82 mg/dL (0-150)
[2022-08-01 11:25] LABS: Estmated Average Glucose 97
== END 2022-08-01 09:26 | disposition home or self-care (01) ==
LOC: LAB 09:26
PROVIDERS: PCP Family Medicine; Visit Provider Family Medicine
DX: Z13.220 Encounter for screening for lipoid disorders (principal); Z51.81 Encounter for therapeutic drug level monitoring; E11.9 Type 2 diabetes mellitus without complications; R53.81 Other malaise; R53.83 Other fatigue
CPT/HCPCS: 36415; 80053; 80061; 83036; 84439; 84443; 85025

== ENCOUNTER → 2022-09-17 12:17 | Outpatient (BNVA) | payer OTHER, SELFPAY | PROVIDERS: PCP Family Medicine; Visit Provider Nurse Practitioner Family | DX: J02.9 Acute pharyngitis, unspecified (principal); H66.002 Acute suppurative otitis media without spontaneous rupture of ear drum, left ear; R21 Rash and other nonspecific skin eruption | CPT/HCPCS: 87071; 87880 ==

== ENCOUNTER 2022-11-07 14:43 | Emergency (ER) | payer OTHER, BC, SELFPAY ==
[2022-11-07 14:48] VITALS: BP 140/91; PULSE 93; RESP 14; TEMP 36.7; O2SAT 98; BMI 52.4
--- NOTE | 2022-11-07 15:27 | W.ED.CHESTPA ---
HPI - Chest Pain General: Chief Complaint: Chest Pain Stated Complaint: Chest Pain, SOB Time Seen by Provider: 11/07/22 15:27 Source: patient Mode of arrival: ambulatory History of Present Illness: 27-year-old female comes in complaining of left upper chest pain. Began today while she was working. She has not noticed anything that exacerbates or relieves it. She has some epigastric discomfort. She denies any dysuria urgency or frequency denies any medic easy melena hematemesis coffee-ground emesis. MD complaint: chest pain Onset (ago): minute(s) Timing of current episode: episodic Prior episodes: No Onset: during rest Pain location: left chest Pain radiation: none Quality: sharp Relieving factors: nothing Exacerbating factors: nothing Associated symptoms: Deny abdominal pain, dyspnea, fever(s), nausea or vomiting Review of Systems Const: Denies: fever(s), chills, body aches, change in appetite, fatigue or malaise ENMT: Denies: throat pain, ear or mastoid pain, nasal discharge or nasal congestion Card: Denies: chest pain, edema, dyspnea on exertion or orthopnea Resp: Denies: dyspnea, productive cough or non-productive cough GI: Denies: abdominal pain, nausea, vomiting, hematemesis, coffee ground emesis, diarrhea, constipation, bloating, hematochezia or melena : Denies: flank pain, difficulty voiding, dysuria, urinary frequency or urinary urgency Skin/Breast: Denies: rash or pruritus PFSH ED PFSH: Medical History Hidradenitis suppurativa On topical clindamycin---follows up with Dr. Wallace PCOS (polycystic ovarian syndrome) Diagnosed with PCOS at the age of 17 when she had irregular cycles. States that she had a hemoglobin A1c in 2020 that was 5.3. Surgical History H/O excision of mass (01/17/22) left chest wall S/P adenoidectomy At the age of 6 Family History Grandfather Heart disease maternal Diabetes paternal and maternal Grandmother Diabetes maternal Heart disease paternal Stroke paternal Father Diabetes Brother Thyroid condition Mother Hypertension Denies family history of Colon cancer Ovarian cancer Hyperlipidemia Breast cancer Uterine cancer Social History Smoking and tobacco status: never smoked Alcohol intake: never Substance/Drug Use: never Current occupation: [employer] [place] [employer] Physical Exam Const: GENERAL APPEARANCE: cooperative and comfortable ORIENTATION/CONSCIOUSNESS: Yes awake, Yes oriented to person, Yes oriented to place and Yes oriented to time HENMT: COMMON NORMALS: normocephalic, atraumatic and hearing grossly normal bilaterally HEAD & SCALP: normocephalic and atraumatic Resp: COMMON NORMALS: normal respiratory effort, No retractions, No use of accessory muscles and clear to auscultation bilaterally AUSCULTATION: clear to auscultation bilaterally Cardio: COMMON NORMALS: regular rate, regular rhythm and No murmurs present (Cardio) RATE: regular rate RHYTHM: regular rhythm GI: COMMON NORMALS: Soft to palpation and No hepatosplenomegaly present AUSCULTATION: Yes normoactive bowel sounds PALPATION: Yes Soft to palpation, No Tenderness to palpation present (GI), No Guarding due to palpation present (GI) and Yes No hepatosplenomegaly present Extremity: COMMON NORMALS: normal to inspection, capillary refill normal, no clubbing, cyanosis or edema, no calf tenderness and no pedal edema Neuro: SENSORIUM/ORIENTATION: Yes oriented to person, Yes oriented to place and Yes oriented to time Skin: COMMON NORMALS: no rashes or lesions noted GENERAL SKIN EXAM: no rashes or lesions noted Course Vital Signs: Vital signs: Vital Signs Temperature 98.1 F 11/07/22 14:48 Pulse Rate 90 11/07/22 16:26 Respiratory Rate 16 11/07/22 16:26 Blood Pressure 158/87 11/07/22 16:26 Pulse Oximetry 94 11/07/22 16:26 Oxygen Delivery Me thod Room Air 11/07/22 16:26 MDM - Chest Pain Medical Decision Making Pain worse with inspiration after initial labs were done rechecked with her she is not having any discomfort at all now. She reports she had an injury sometime ago the left shoulder and upper chest she thinks it may have flared that she is not having any shortness of breath at this time. EKG and first troponin are normal. Show pneumonia pneumothorax or any lung abnormality. Discharged home NSAIDs as needed follow-up with primary care if there are further problems. She states she also has some muscle relaxer that she will try if symptoms recur. Medical Records I reviewed the patient's medical records. Lab Data I reviewed the patient's lab results. 11/07/22 15:52 11/07/22 15:52 Radiology Impressions Chest X-Ray 11/07/22 15:45 IMPRESSION: No acute findings. Laboratory Results WBC 10.3 10^3/uL (4.0-10.0) H 11/07/22 15:52 RBC 4.75 10^6/uL (4.1-5.3) 11/07/22 15:52 Hgb 11.4 g/dL (11.5-15.3) L 11/07/22 15:52 Hct 37.3 % (37.0-47.0) 11/07/22 15:52 MCV 78.5 fl (81-99) L 11/07/22 15:52 MCH 24.0 pg (28.0-34.0) L 11/07/22 15:52 MCHC 30.6 g/dL (30.0-36.0) 11/07/22 15:52 RDW 15.1 % (12.1-15.1) 11/07/22 15:52 Plt Count 406 10^3/cmm (130-400) H 11/07/22 15:52 MPV 9.8 fL (7.4-10.4) 11/07/22 15:52 Neut % (Auto) 66.2 % 11/07/22 15:52 Lymph % (Auto) 24.1 % 11/07/22 15:52 [place] % (Auto) 5.8 % 11/07/22 15:52 Eos % (Auto) 2.9 % 11/07/22 15:52 Baso % (Auto) 0.7 % 11/07/22 15:52 Neut # (Auto) 6.79 10^3/uL (1.8-7.7) 11/07/22 15:52 Lymph # (Auto) 2.5 10^3/uL (0.8-4.8) 11/07/22 15:52 [place] # (Auto) 0.6 10^3/uL (0.2-0.9) 11/07/22 15:52 Eos # (Auto) 0.3 10^3/uL (0.0-0.8) 11/07/22 15:52 Baso # (Auto) 0.1 10^3/uL (0.0-0.1) 11/07/22 15:52 Nucleated RBC % (auto) 0 % 11/07/22 15:52 Nucleated RBCs # 0.0 /100WBC 11/07/22 15:52 Sodium 138 mmol/L (136-145) 11/07/22 15:52 Potassium 3.9 mmol/L (3.5-5.1) 11/07/22 15:52 Chloride 102 mmol/L (98-107) 11/07/22 15:52 Carbon Dioxide 24 mmol/L (22-29) 11/07/22 15:52 Anion Gap 15.9 (5-19) 11/07/22 15:52 BUN 15 mg/dL (6-20) 11/07/22 15:52 Creatinine 0.7 mg/dL (0.5-0.9) 11/07/22 15:52 GFR Calculation 99.6 mL/min (90-130) 11/07/22 15:52 Glucose 84 mg/dL (65-115) 11/07/22 15:52 Calculated Osmolality 286 mOsm/kg (285-295) 11/07/22 15:52 Calcium 9.2 mg/dL (8.5-10.5) 11/07/22 15:52 Total Bilirubin 0.2 mg/dL (0.15-1.2) 11/07/22 15:52 AST 18 U/L (0-32) 11/07/22 15:52 ALT 18 U/L (0-33) 11/07/22 15:52 Alkaline Phosphatase 69 U/L (35-105) 11/07/22 15:52 Troponin T Baseline 6 ng/L (0-10) 11/07/22 15:52 Total Protein 7.4 g/dL (6.6-8.7) 11/07/22 15:52 Albumin 3.9 g/dL (3.5-5.2) 11/07/22 15:52 Globulin 3.5 g/dL (1.3-4.6) 11/07/22 15:52 Lipase 34 U/L (13-60) 11/07/22 15:52 Urine Color Yellow (Yellow) 11/07/22 15:52 Urine Appearance Sl cloudy (CLEAR) A 11/07/22 15:52 Urine pH 6 (5-7) 11/07/22 15:52 Ur Specific [place] 1.020 (1.005-1.030) 11/07/22 15:52 Urine Protein Neg (Negative) 11/07/22 15:52 Urine Glucose (UA) Norm (Normal) 11/07/22 15:52 Urine Ketones Negative (Negative) 11/07/22 15:52 Urine Blood Neg (Negative) 11/07/22 15:52 Urine Nitrate Negative (Negative) 11/07/22 15:52 Urine Bilirubin Neg (Negative) 11/07/22 15:52 Urine Urobilinogen Norm mg/dL (Negative) 11/07/22 15:52 Ur Leukocyte Esterase Negative (Negative) 11/07/22 15:52 Urine RBC 0-4 /hpf (0-2) H 11/07/22 15:52 Urine WBC 0-4 /hpf (0-5) H 11/07/22 15:52 Ur Squamous Epith Cells 0-4 /hpf (0-5) H 11/07/22 15:52 Amorphous Sediment Not Reportable 11/07/22 15:52 Urine Bacteria Trace /hpf (NONE) 11/07/22 15:52 Discharge Plan Discharge Patient Disposition: Home Clinical Impression: Chest pain, musculoskeletal Condition: Stable Prescriptions: No Action acetaminophen [Tylenol 8 Hour] 650 mg tablet extended release 650 mg PO Q12H PRN (Reason: Pain) cyclobenzaprine 10 mg tablet 10 mg PO TID PRN (Reason: muscle spasms) Hold Instructions: Doctor's Order biotin 2,500 mcg capsule 5 mg PO DAILY Haroon Probiotic 14 billion cell capsule 14 cell PO DAILY Collagen Plus Vitamin C 125-740 mg capsule 1 cap PO DAILY triamcinolone acetonide 0.1 % ointment 1 applic topical BID Qty: 80 0RF Rx Instructions: Apply to affected areas on hands and ankle no more than 2 wks/mo prn clobetasol 0.05 % ointment 1 applic topical BID PRN (Reason: Rash) Rx Instructions: to hands and ankles BID x 2 weeks alternating with triamcinolone mupirocin 2 % ointment 1 applic topical BID Qty: 22 1RF Rx Instructions: Apply to affected area(s) until healed. hydrocortisone 2.5 % cream 1 applic topical BID Qty: 30 2RF Rx Instructions: May apply to affected areas no more than 2 weeks/month methocarbamol 500 mg tablet 500 mg PO Q8H Qty: 14 0RF ibuprofen 800 mg tablet 800 mg PO Q8H PRN (Reason: pain) Qty: 20 0RF [place] 3 Fish Oil 684-1,200 mg Capsule,Delayed Release(Dr/Ec) 1 cap PO DAILY 28 mg iron- 800 mcg Tablet 1 tab PO DAILY [id number]-vbti-oygob-oreg-capryl 100 mg-150 mg- 50 mg-150 mg Capsule 1 cap PO DAILY Discharge Orders: Discharge ED (Routine); Ordered 11/07/22 Ordered By: Judah Copeland Referrals: Slim Salas MD [Primary Care Provider] - Patient Instructions: Opioid Safety, Pain Management Activity Restrictions/Additional Instructions: You were seen today for chest pain. Your EKG and labs are normal the pain was reproducible with deep inspiration this is most likely musculoskeletal recommend use Tylenol and ibuprofen as needed. Coding Level of Care Code ED Natural Resource Officer for Jared Mirza
--- NOTE | 2022-11-07 15:45 | ECG_ITS ---
[facility] Test Date: 2022-11-07 Pat Name: Maida Gomez Department: Room: Gender: Female Gate Agent: : 1995 Requested By: Judah Lund Order Number: [id number] Reba MD: Eric Ricardo M.D. Measurements Intervals Reading Rate: 91 P: 46 CO: 147 QRS: 11 QRSD: 84 T: 47 QT: 347 QTc: 429 Interpretive Statements SINUS RHYTHM POSSIBLE LEFT ATRIAL ENLARGEMENT [-0.1mV P-WAVE IN V1/V2] Compared to ECG 03/04/2017 22:08:11 No significant changes Electronically Signed On 11-08-2022 1:16:47 CDT by Eric Ricardo M.D. [id number]
--- NOTE | 2022-11-07 15:45 | XRR_ITS ---
PROCEDURE INFORMATION: Exam: XR Chest Exam date and time: 11/07/2022 3:52 PM Age: 27 years old Clinical indication: Cough and dyspnea and shortness of breath; Additional info: Dyspnea/cough TECHNIQUE: Imaging protocol: Radiologic exam of the chest. Views: 1 view. COMPARISON: CR XR chest 1V [id number] 12/16/2017 1:43 AM FINDINGS: Lungs: Unremarkable. No consolidation. Pleural spaces: Unremarkable. No pleural effusion. No pneumothorax. Heart/Mediastinum: Unremarkable. No cardiomegaly. Bones/joints: Unremarkable. XR/XR chest 1V portable [id number] IMPRESSION: No acute findings.
[2022-11-07 16:03] LABS: Basophils # 0.1 10^3/uL (0.0-0.1); Basophils % 0.7 %; Eosinophils # 0.3 10^3/uL (0.0-0.8); Eosinophils % 2.9 %; Hematocrit 37.3 % (37.0-47.0); Hemoglobin 11.4 g/dL (11.5-15.3); Lymphocytes # 2.5 10^3/uL (0.8-4.8); Lymphocytes % 24.1 %; Mean Corpuscular HGB Conc 30.6 g/dL (30.0-36.0); Mean Corpuscular Volume 78.5 fl (81-99); Mean Platelet Volume 9.8 fL (7.4-10.4); Monocytes # 0.6 10^3/uL (0.2-0.9); Monocytes % 5.8 %; Neutrophils # 6.79 10^3/uL (1.8-7.7); Neutrophils % 66.2 %; Nucleated Red Blood Cells % 0 %; Platelet Count 406 10^3/cmm (130-400); Red Blood Count 4.75 10^6/uL (4.1-5.3); Red Cell Distribution Width 15.1 % (12.1-15.1); White Blood Count 10.3 10^3/uL (4.0-10.0)
[2022-11-07 16:21] LABS: Alanine Aminotransferase 18 U/L (0-33); Albumin Level 3.9 g/dL (3.5-5.2); Alkaline Phosphatase 69 U/L (35-105); Anion Gap 15.9 (5-19); Aspartate Amino Transferase 18 U/L (0-32); Blood Urea Nitrogen 15 mg/dL (6-20); Calcium 9.2 mg/dL (8.5-10.5); Carbon Dioxide 24 mmol/L (22-29); Chloride 102 mmol/L (98-107); Globulin 3.5 g/dL (1.3-4.6); Glomerular Filtration Rate 99.6 mL/min (90-130); Glucose 84 mg/dL (65-115); Lipase 34 U/L (13-60); Osmolality Calculated 286 mOsm/kg (285-295); Potassium 3.9 mmol/L (3.5-5.1); Sodium 138 mmol/L (136-145); Total Bilirubin 0.2 mg/dL (0.15-1.2); Total Protein 7.4 g/dL (6.6-8.7)
[2022-11-07] MEDS: lidocaine 2% viscous 15 ML, aluminum-mag hydrox-simethicon 30 ML, sucralfate oral liq 1 GM PO (16:24)
[2022-11-07 16:26] VITALS: BP 158/87; PULSE 90; RESP 16; O2SAT 94
[2022-11-07 16:27] LABS: Troponin(5th) Baseline 6 ng/L (0-10)
[2022-11-07 18:01] LABS: Add Urine Microscopic? YES; Bilirubin Urine Neg (Negative); Blood Urine Neg (Negative); Glucose Urine UA Norm (Normal); Ketones Urine Negative (Negative); Leukocyte Esterase Urine Negative (Negative); Nitrate Urine Negative (Negative); Protein Urine Neg (Negative); RBC Urine 0-4 /hpf (0-2); Squamous Epithelial Cell Urine 0-4 /hpf (0-5); Urine Color Yellow (Yellow); Urobilinogen Urine Norm (Negative); WBC Urine 0-4 /hpf (0-5); pH Urine 6 (5-7)
[2022-11-07 18:02] LABS: Add Urine Culture? No; Bacteria Urine TRACE /hpf
== END 2022-11-07 17:37 | disposition home or self-care (01) ==
PROVIDERS: Emergency Provider Family Medicine; PCP Family Medicine
DX: R07.89 Other chest pain (principal)
CPT/HCPCS: 71045; 80053; 81001; 83690; 84484; 85025; 93005; 99285

== ENCOUNTER → 2022-12-19 15:32 | Outpatient (BNVA) | payer OTHER, BC, SELFPAY | PROVIDERS: PCP Family Medicine; Visit Provider Emergency Medicine | DX: R39.9 Unspecified symptoms and signs involving the genitourinary system (principal); M70.62 Trochanteric bursitis, left hip; N30.01 Acute cystitis with hematuria | CPT/HCPCS: 81000 ==

== ENCOUNTER → 2023-06-23 14:17 | Outpatient (BNVA) | payer OTHER, BC, SELFPAY | PROVIDERS: PCP Family Medicine; Visit Provider Registered Nurse Neonatal Intensive Care | DX: R52 Pain, unspecified (principal); J06.9 Acute upper respiratory infection, unspecified | CPT/HCPCS: 87400 ==

== ENCOUNTER → 2023-08-07 12:33 | Outpatient (BNVA) | payer OTHER, BC, SELFPAY | PROVIDERS: PCP Family Medicine; Visit Provider Family Medicine | DX: Z51.81 Encounter for therapeutic drug level monitoring (principal); E11.9 Type 2 diabetes mellitus without complications; Z13.220 Encounter for screening for lipoid disorders; R53.81 Other malaise; R53.83 Other fatigue | CPT/HCPCS: 80053; 80061; 83036; 84439; 84443; 85025 ==

== ENCOUNTER → 2024-01-04 11:45 | Outpatient (BNVA) | payer OTHER, BC, SELFPAY | PROVIDERS: PCP Family Medicine; Visit Provider Nurse Practitioner Women's Health | DX: Z01.419 Encounter for gynecological examination (general) (routine) without abnormal findings (principal); Z31.69 Encounter for other general counseling and advice on procreation; L02.91 Cutaneous abscess, unspecified | CPT/HCPCS: 82306; 83036; 83520; 84439; 84443; 84481; 85025; 87624 ==

== ENCOUNTER → 2024-01-23 09:00 | Outpatient (BNVA) | payer OTHER, BC, SELFPAY | PROVIDERS: PCP Family Medicine; Visit Provider Nurse Practitioner Women's Health | DX: N83.202 Unspecified ovarian cyst, left side (principal); N92.6 Irregular menstruation, unspecified | CPT/HCPCS: 76830 ==

== ENCOUNTER → 2024-02-19 15:36 | Outpatient (BNVA) | payer OTHER, BC, SELFPAY | PROVIDERS: PCP Family Medicine; Visit Provider Nurse Practitioner Women's Health | DX: E28.2 Polycystic ovarian syndrome (principal) | CPT/HCPCS: 76830 ==

== ENCOUNTER → 2024-04-15 14:27 | Outpatient (BNVA) | payer OTHER, BC, SELFPAY | PROVIDERS: PCP Family Medicine; Visit Provider Family Medicine | DX: Z51.81 Encounter for therapeutic drug level monitoring (principal); E55.9 Vitamin D deficiency, unspecified; R53.81 Other malaise; R53.83 Other fatigue | CPT/HCPCS: 80053; 82306; 83036; 84439; 84443; 85025 ==

== ENCOUNTER → 2024-04-16 14:55 | Outpatient (BNVA) | payer OTHER, BC, SELFPAY | PROVIDERS: PCP Family Medicine; Visit Provider Registered Nurse Neonatal Intensive Care | DX: M89.361 Hypertrophy of bone, right tibia (principal); M25.561 Pain in right knee | CPT/HCPCS: 73562 ==

== ENCOUNTER 2024-08-11 08:29 | Outpatient (CLI) | payer OTHER, BC, SELFPAY ==
--- NOTE | 2024-08-11 08:40 | MM_ITS ---
WS: [id number] DIAGNOSTIC BILATERAL DIGITAL BREAST TOMOSYNTHESIS MAMMOGRAPHY WITH CAD RIGHT breast ultrasound, limited HISTORY: LUMP IN BREAST @ 4 OCLOCK COMPARISON: None available. TECHNIQUE: Bilateral craniocaudad, mediolateral oblique, and mediolateral views are submitted with tomosynthesis and SM. Spot compression RIGHT CC. Computer aided detection utilized. Breast composition: The breasts are almost entirely fatty. Triangular marker is placed along the medial RIGHT breast just below the nipple line and there is no underlying abnormality identified at this site. No skin thickening. There is an additional lobulated, well-circumscribed mass measuring 8 x 4 mm at 10:00 RIGHT breast at a middle depth which is probably a lymph node. LEFT breast is negative. RIGHT breast ultrasound, limited. Palpable abnormality at 4:00 is a subcutaneous complex cyst measuring 0.9 x 0.9 x 0.3 cm without increased vascularity. This is most consistent with a sebaceous or epidermoid cyst. At 10:00, 5 cm from the nipple is a reniform shaped mass which is probably a lymph node measuring 0.9 x 0.5 x 0.4 cm. No increased vascularity. MM/MM diag BI tomosynthesis [id number] IMPRESSION: BI-RADS: 2 - Benign. FOLLOW UP: See Report 1. Palpable abnormality in the RIGHT breast corresponds to a small sebaceous c yst or epidermoid. 2. Additional lymph node at 10:00 RIGHT breast.
--- NOTE | 2024-08-11 09:00 | US_ITS ---
WS: [id number] DIAGNOSTIC BILATERAL DIGITAL BREAST TOMOSYNTHESIS MAMMOGRAPHY WITH CAD RIGHT breast ultrasound, limited HISTORY: LUMP IN BREAST @ 4 OCLOCK COMPARISON: None available. TECHNIQUE: Bilateral craniocaudad, mediolateral oblique, and mediolateral views are submitted with tomosynthesis and SM. Spot compression RIGHT CC. Computer aided detection utilized. Breast composition: The breasts are almost entirely fatty. Triangular marker is placed along the medial RIGHT breast just below the nipple line and there is no underlying abnormality identified at this site. No skin thickening. There is an additional lobulated, well-circumscribed mass measuring 8 x 4 mm at 10:00 RIGHT breast at a middle depth which is probably a lymph node. LEFT breast is negative. RIGHT breast ultrasound, limited. Palpable abnormality at 4:00 is a subcutaneous complex cyst measuring 0.9 x 0.9 x 0.3 cm without increased vascularity. This is most consistent with a sebaceous or epidermoid cyst. At 10:00, 5 cm from the nipple is a reniform shaped mass which is probably a lymph node measuring 0.9 x 0.5 x 0.4 cm. No increased vascularity. US/US breast RT limited* [id number] IMPRESSION: BI-RADS: 2 - Benign. FOLLOW UP: See Report 1. Palpable abnormality in the RIGHT breast corresponds to a small sebaceous c yst or epidermoid. 2. Additional lymph node at 10:00 RIGHT breast.
== END 2024-08-11 08:30 | disposition home or self-care (01) ==
LOC: RAD 08:31
PROVIDERS: Visit Provider Family Medicine
DX: N63.14 Unspecified lump in the right breast, lower inner quadrant (principal); R92.313 Mammographic fatty tissue density, bilateral breasts; N63.11 Unspecified lump in the right breast, upper outer quadrant; N60.01 Solitary cyst of right breast
CPT/HCPCS: 76642; 77062; G0279

== ENCOUNTER → 2024-10-24 16:13 | Outpatient (BNVA) | payer OTHER, BC, SELFPAY | PROVIDERS: Visit Provider Emergency Medicine | DX: N89.8 Other specified noninflammatory disorders of vagina (principal) | CPT/HCPCS: 81000; 81513; 87481; 87491; 87591; 87661 ==

== ENCOUNTER → 2024-10-28 08:34 | Outpatient (BNVA) | payer OTHER, BC, SELFPAY | PROVIDERS: Visit Provider Nurse Practitioner Women's Health | DX: Z36.9 Encounter for antenatal screening, unspecified (principal); Z33.1 Pregnant state, incidental; N83.202 Unspecified ovarian cyst, left side | CPT/HCPCS: 76801; 81025; 84702; 86850; 86900 ==

== ENCOUNTER 2024-11-04 13:25 | Emergency (ER) | payer OTHER, BC, SELFPAY ==
[2024-11-04 13:31] VITALS: BP 122/74; PULSE 86; RESP 18; TEMP 36.7; O2SAT 98; BMI 52.4
[2024-11-04 14:32] LABS: Basophils % 0.4 %; Eosinophils # 0.1 10^3/uL (0.0-0.8); Eosinophils % 1.5 %; Hematocrit 35.7 % (36-47); Lymphocytes # 1.4 10^3/uL (0.8-4.8); Lymphocytes % 19.9 %; Mean Corpuscular HGB Conc 30.3 g/dL (30-55); Mean Corpuscular Hemoglobin 24.1 pg (27-33); Mean Corpuscular Volume 79.7 fl (85-98); Mean Platelet Volume 10.1 fL (7.4-10.4); Monocytes # 0.5 10^3/uL (0.2-0.9); Monocytes % 6.3 %; Neutrophils # 5.19 10^3/uL (1.8-7.7); Neutrophils % 71.6 %; Nucleated Red Blood Cells % 0 %; Platelet Count 320 10^3/cmm (157-399); Red Blood Count 4.48 10^6/uL (3.85-5.65); Red Cell Distribution Width 16.1 % (12.1-15.1); White Blood Count 7.25 10^3/uL (3.29-11.43)
--- NOTE | 2024-11-04 15:15 | W.ED.PREGNAN ---
HPI - General: Chief complaint: Vaginal Bleeding Stated complaint: spotting (10wk preg) Time Seen by Provider: 11/04/24 14:50 Source: patient Mode of arrival: ambulatory Limitations: no limitations History of Present Illness: 29-year-old female who is currently 10 weeks states that today when she wiped she noticed some pinkish discharge. States she has had some discharge to this had some slight cramping 1 to make sure baby is okay denies any severe pain denies any bleeding. Date of Last Menstrual Period: 08/26/24 Associated symptoms: Reports abdominal pain and vaginal discharge; Deny dysuria, headache(s), nausea or vomiting Related Data Home Medications ?Medication ?Instructions ?Recorded ?Confirmed clobetasol 0.05 % topical ointment 1 applic topical BID PRN Rash 11/01/20 10/24/24 vit no.95-ferrous 1 tab PO DAILY 11/07/22 10/24/24 fumarate 28 mg-folic acid 800 mcg tablet () Previous Rx's ?Medication ?Instructions ?Recorded triamcinolone acetonide 0.1 % 1 applic topical BID #80 grams 07/19/20 topical ointment hydrocortisone 2.5 % topical cream 1 applic topical BID #30 grams 11/02/21 omeprazole 40 mg capsule,delayed 40 mg PO DAILY #30 caps 08/07/23 release cholecalciferol (vitamin D3) 50 50 mcg PO DAILY #30 caps 04/24/24 mcg (2,000 unit) capsule ferrous sulfate 325 mg (65 mg 325 mg PO BID #60 tabs 04/24/24 iron) tablet metoclopramide HCl 5 mg tablet 5 mg PO DAILY #30 tabs 10/28/24 (Reglan) Allergies Allergy/AdvReac Type Severity Reaction Status Date / Time pepper (genus Capsicum) Allergy Severe hives Verified 10/24/24 16:00 Review of Systems Const: Denies: fever(s), chills, body aches or change in appetite ENMT: Denies: throat pain or dental pain Card: Denies: chest pain Resp: Denies: dyspnea GI: Reports: abdominal pain; Denies: nausea, vomiting or diarrhea : Reports: vaginal discharge; Denies: dysuria Musc: Denies: neck pain or back pain Skin/Breast: Denies: rash Neuro: Denies: headache(s) PFSH ED PFSH: Medical History Hidradenitis suppurativa On topical clindamycin---follows up with Dr. Wallace PCOS (polycystic ovarian syndrome) Diagnosed with PCOS at the age of 17 when she had irregular cycles. States that she had a hemoglobin A1c in 2020 that was 5.3. Surgical History H/O excision of mass (01/17/22) left chest wall S/P adenoidectomy At the age of 6 Family History Grandfather Heart disease maternal Diabetes paternal and maternal Grandmother Diabetes maternal Heart disease paternal Stroke paternal Father Diabetes Brother Thyroid disease Mother Hypertension Denies family history of Colon cancer Ovarian cancer Hyperlipidemia Breast cancer Uterine cancer Social History Smoking and tobacco/nicotine status: never used tobacco/nicotine Female Reproductive History: Date of last menstrual period: 08/26/24 Physical Exam Const: COMMON NORMALS: no acute distress, patient oriented x3 and healthy appearing HENMT: COMMON NORMALS: normocephalic and atraumatic HEAD & SCALP: normocephalic and atraumatic Eye: COMMON NORMALS: conjunctivae normal CONJUNCTIVA: Yes conjunctivae normal Neck/C-Spine: COMMON NORMALS: full ROM and supple Chest: COMMONS NORMALS: normal inspection of the chest Resp: COMMON NORMALS: normal respiratory effort Cardio: COMMON NORMALS: regular rate RATE: regular rate GI: COMMON NORMALS: Normal to inspection, nondistended, normoactive bowel sounds present, Soft to palpation, non-tender and no masses PALPATION: Yes Soft to palpation Extremity: COMMON NORMALS: normal to inspection and full ROM Neuro: COMMON NORMALS: patient oriented x3, moves all extremities and no focal motor deficits Psych: COMMON NORMALS: mental status grossly normal, Normal thought process present and cooperative THOUGHT PROCESS: Normal thought process present Skin: COMMON NORMALS: no rashes or lesions noted and no wounds GENERAL SKIN EXAM: no rashes or lesions noted Course Vital Signs: Vital signs: Vital Signs Temperature 98.1 F 11/04/24 13:31 Pulse Rate 86 11/04/24 13:31 Respiratory Rate 18 11/04/24 13:31 Blood Pressure 122/74 11/04/24 13:31 Pulse Oximetry 98 11/04/24 13:31 Oxygen Delivery Me thod Room Air 11/04/24 13:31 MDM - OB/Uterine Contractions Medical Decision Making Patient presents for some cramping in along with slight discharge no signs of any bleeding her urinalysis here was negative did a bedside ultrasound showed IUP consistent with dates heart tones 146 she stable for discharge she has to follow-up with her OB return if worsening. Medical Records I reviewed the patient's medical records. Lab Data I reviewed the patient's lab results. 11/04/24 14:10 Laboratory Results WBC 7.25 10^3/uL (3.29-11.43) 11/04/24 14:10 RBC 4.48 10^6/uL (3.85-5.65) 11/04/24 14:10 Hgb 10.80 g/dL (11.27-16.99) L 11/04/24 14:10 Hct 35.7 % (36-47) L 11/04/24 14:10 MCV 79.7 fl (85-98) L 11/04/24 14:10 MCH 24.1 pg (27-33) L 11/04/24 14:10 MCHC 30.3 g/dL (30-55) 11/04/24 14:10 RDW 16.1 % (12.1-15.1) H 11/04/24 14:10 Plt Count 320 10^3/cmm (157-399) 11/04/24 14:10 MPV 10.1 fL (7.4-10.4) 11/04/24 14:10 Neut % (Auto) 71.6 % 11/04/24 14:10 Lymph % (Auto) 19.9 % 11/04/24 14:10 [place] % (Auto) 6.3 % 11/04/24 14:10 Eos % (Auto) 1.5 % 11/04/24 14:10 Baso % (Auto) 0.4 % 11/04/24 14:10 Neut # (Auto) 5.19 10^3/uL (1.8-7.7) 11/04/24 14:10 Lymph # (Auto) 1.4 10^3/uL (0.8-4.8) 11/04/24 14:10 [place] # (Auto) 0.5 10^3/uL (0.2-0.9) 11/04/24 14:10 Eos # (Auto) 0.1 10^3/uL (0.0-0.8) 11/04/24 14:10 Baso # (Auto) 0.0 10^3/uL (0.0-0.1) 11/04/24 14:10 Nucleated RBC % (auto) 0 % 11/04/24 14:10 Nucleated RBCs # 0.0 /100WBC 11/04/24 14:10 Ser , Semi-Qnt 755566.00 mIU/mL 11/04/24 14:10 Urine Color Yellow (Yellow) 11/04/24 15:05 Urine Appearance Turbid (CLEAR) A 11/04/24 15:05 Urine pH 7.0 (5-7) 11/04/24 15:05 Ur Specific [place] 1.022 (1.005-1.030) 11/04/24 15:05 Urine Protein Negative (Negative) 11/04/24 15:05 Urine Glucose (UA) Negative (Normal) 11/04/24 15:05 Urine Ketones Negative (Negative) 11/04/24 15:05 Urine Blood Non-haemolysed trace (Negative) 11/04/24 15:05 Urine Nitrate Negative (Negative) 11/04/24 15:05 Urine Bilirubin Negative (Negative) 11/04/24 15:05 Urine Urobilinogen 1.0 mg/dL (Negative) 11/04/24 15:05 Ur Leukocyte Esterase 1+ (Negative) A 11/04/24 15:05 Urine RBC 0-2 /hpf (0-2) 11/04/24 15:05 Urine WBC 6-10 /hpf (0-5) 11/04/24 15:05 Ur Squamous Epith Cells 6-10 /hpf (0-5) 11/04/24 15:05 Amorphous Sediment Not Reportable 11/04/24 15:05 Urine Bacteria 1+ /hpf (NONE) H 11/04/24 15:05 Hyaline Casts 1.21 /lpf 11/04/24 15:05 No radiology studies performed this visit Discharge Plan Discharge Patient Disposition: Home Clinical Impression: Abdominal pain affecting Condition: Stable Prescriptions: No Action triamcinolone acetonide 0.1 % ointment 1 applic topical BID Qty: 80 0RF Rx Instructions: Apply to affected areas on hands and ankle no more than 2 wks/mo prn clobetasol 0.05 % ointment 1 applic topical BID PRN (Reason: Rash) Rx Instructions: to hands and ankles BID x 2 weeks alternating with triamcinolone hydrocortisone 2.5 % cream 1 applic topical BID Qty: 30 2RF Rx Instructions: May apply to affected areas no more than 2 weeks/month omeprazole 40 mg capsule,delayed release(DR/EC) 40 mg PO DAILY Qty: 30 6RF metoclopramide HCl [Reglan] 5 mg tablet 5 mg PO DAILY Qty: 30 2RF Rx Instructions: take one tab once daily ferrous sulfate 325 mg (65 mg iron) tablet 325 mg PO BID Qty: 60 3RF cholecalciferol (vitamin D3) 50 mcg (2,000 unit) capsule 50 mcg PO DAILY Qty: 30 6RF 28 mg iron- 800 mcg Tablet 1 tab PO DAILY Discharge Orders: Discharge ED (Routine); Ordered 11/04/24 Ordered By: Piotr Kuhn Referrals: Slim Salas MD [Primary Care Provider, Family Practice] - 4-7 days Discharge Diet: Advance as tolerated Discharge Activity: Resume usual activity Patient Instructions: Abdominal Pain in (ED) Print Language: Nepali Coding Level of Care Code ED [employer] for Jared Mirza
[2024-11-04 15:22] LABS: Bilirubin Urine Negative (Negative); Blood Urine Non-haemolysed trace (Negative); Glucose Urine UA Negative (Normal); Ketones Urine Negative (Negative); Leukocyte Esterase Urine 1+ (Negative); Nitrate Urine Negative (Negative); Protein Urine Negative (Negative); Specific Gravity, Urine 1.022 (1.005-1.030); Urine Appearance Turbid (CLEAR); Urine Color Yellow (Yellow)
[2024-11-04 15:27] LABS: Add Urine Microscopic? YES; Bacteria Urine 1+ /hpf; Hyaline Casts Urine 1.21 /lpf; RBC Urine 0-2 /hpf (0-2)
[2024-11-04 15:29] LABS: Add Urine Culture? No
[2024-11-04 16:04] VITALS: BP 124/74; PULSE 74; O2SAT 100
== END 2024-11-04 16:05 | disposition home or self-care (01) ==
PROVIDERS: Emergency Provider Emergency Medicine; PCP Family Medicine
DX: O26.891 Other specified pregnancy related conditions, first trimester (principal); Z3A.10 10 weeks gestation of pregnancy
CPT/HCPCS: 36415; 81001; 84702; 85025; 99283

== ENCOUNTER → 2024-11-05 07:47 | Outpatient (BNVA) | payer OTHER, BC, SELFPAY | PROVIDERS: PCP Family Medicine; Visit Provider Nurse Practitioner Women's Health | DX: Z34.90 Encounter for supervision of normal pregnancy, unspecified, unspecified trimester (principal); O99.210 Obesity complicating pregnancy, unspecified trimester; E28.2 Polycystic ovarian syndrome | CPT/HCPCS: 80307; 82950; 84315; 84443; 86592; 86762; 86803; 87086; 87340; 87806 ==

== ENCOUNTER → 2024-11-19 07:48 | Outpatient (BNVA) | payer OTHER, BC, SELFPAY | PROVIDERS: PCP Family Medicine; Visit Provider Obstetrics & Gynecology | DX: O09.91 Supervision of high risk pregnancy, unspecified, first trimester (principal); E66.01 Morbid (severe) obesity due to excess calories; Z68.43 Body mass index [BMI] 50.0-59.9, adult | CPT/HCPCS: 84315; 87491; 87591; 87661 ==

== ENCOUNTER → 2024-12-04 15:10 | Outpatient (BNVA) | payer OTHER, BC, SELFPAY | PROVIDERS: PCP Family Medicine; Visit Provider Obstetrics & Gynecology | DX: Z34.01 Encounter for supervision of normal first pregnancy, first trimester (principal) | CPT/HCPCS: 84315 ==

== ENCOUNTER → 2024-12-17 08:51 | Outpatient (BNVA) | payer OTHER, BC, SELFPAY | PROVIDERS: PCP Family Medicine; Visit Provider Nurse Practitioner Women's Health | DX: Z34.90 Encounter for supervision of normal pregnancy, unspecified, unspecified trimester (principal); E28.2 Polycystic ovarian syndrome | CPT/HCPCS: 82105; 83036; 84315; 85025 ==

== ENCOUNTER 2024-12-27 20:15 | Emergency (ER) | payer OTHER, BC, SELFPAY ==
--- OUTSIDE RECORDS SUMMARY | 2024-12-27 20:24 | XMS_ITS | Data Portability ---
Author Organization [facility] Rich Mckeon [facility] Jolanta Kerr [facility] Address [address] [place] [address] Care Team Providers Care Biology Laboratory Assistant Name Role Phone CARLY TORRES Primary Care Provider Assessment Encounter Date Assessment Date Assessment LastModified by Organization Details LastModified Time 07/08/2023 07/08/2023 Patient presents with symptoms of UTI. Results of dipstick were for UTI. Advised to drink clear fluids, Tylenol for pain and take prescribed medications as instructed. Patient encouraged to follow up within 1 week if not improving. [email or web address] Not available 07/08/2023 15:32:59 Plan of Treatment Reminders Order Date Submit Date Provider Last Modified By Organization Details Last Modified Time Details Appointments None recorded. Lab urinalysis, dipstick [address] ([facility]), [address] [place] [address], [address], 17:29:21 test, urine [address] ([facility]), [address] [place], [address], 5 18:55:12 culture, urine 2024 025 [employer] [facility], [address] [place] [address], [address] [place], [address], 00:50:42 urinalysis, dipstick 2023 024 [email or web address] [facility] ([facility]), [address] [place], [address], 4 16:00:30 culture, urine 2023 024 [employer] [facility], [address] [place], [address], 4 16:26:07 SARS CoV 2 RNA, QL, nasopharynx 2022 023 [email or web address] [facility] ([facility]), [address] [place], [address], 3 11:52:23 Referral None recorded. Procedures None recorded. Surgeries None recorded. Imaging XR, kidney + ureter + bladder 2024 025 MALLY Not available 5 09:18:26 Medication Orders fluconazole 150 mg tablet 2023 024 [facility], [address], [place], [address], 5 16:45:38 Patient TargetsNo targets recorded. Patient InstructionsNo instructions recorded. Reason for Referral None Reported. Results Created Date Observation Date Name Description Value Unit Range Abnormal Flag Note LastModifiedBy Organization Detail LastModifiedTime 10/07/1910/05/2024 CULTU RE, URINE , ROUTI NE culture, urine, routine SEE NOTE CULTU RE, URINE , ROUTI NE Micro Numbe r: [id number] Test Statu s: Final Speci men Sourc e: Not given Speci men Quali ty: Adequ ate Resul t: Mixed genit al sergio isola nicole. These super ficia l bacte bettina are not indic ative of a urina ry tract infec tion. No furth er organ ism ident ifica tion is warra nted on this speci men. If clini vneus indic ated, recol lect clean -catc h, mid-s tream urine and trans phuong immed iatel y to Urine Cultu re Trans port Tube. Comme nt: No colle ction date was provi ded. The speci men is gener ally defin ed as stabl e up to 48 hours . The resul t(s) need( s) to be inter prete d cauti ously . Clini copat holog ic corre latio n is requi red. Repea t testi ng is recom shantel d as clini venus indic ated. [facility]ust[facility] rosie Servi ce is avail able with quest ions or comme nts based on your area of inter est: [phone] [phone] ([phone]) NO COLLE CTION DATE RECEI ROC. WE HAVE USED THE DATE THE SPECI MEN WAS RECEI ROC BY THIS LABOR ATORY THE COLLE CTION DATE. IF THIS IS INCOR RECT, PLEAS E CONTA CT CLIEN T [facility] [place]. PHONE NUMBE R: [phone] Not Available [facility] [address] [place], [address], 10/06/2024 00:50:42 09/23/19 23 09/22/2022 SARS CoV 2 RNA, QL, nasop haryn x COVID positi ve Not Available [facility] ([facility]) [address] [place] [address], [address], 09/22/2022 11:37:19 07/08/19 24 07/08/2023 urina lysis , dipst ick Leukocytes Negati ve Not Available [facility] ([facility]) [address] [place], [address], 07/08/2023 15:10:43 07/08/19 24 07/08/2023 urina lysis , dipst ick Nitrite negati ve Not Available [facility] ([facility]) [address] [place], [address], 07/08/2023 15:10:43 07/08/19 24 07/08/2023 urina lysis , dipst ick Urobilinogen .2 Not Available [facility] ([facility]) [address] [place], [address], 07/08/2023 15:10:43 07/08/19 24 07/08/2023 urina lysis , dipst ick Protein Negati ve Not Available [facility] ([facility]) [address] [place], [address], 07/08/2023 15:10:43 07/08/19 24 07/08/2023 urina lysis , dipst ick pH 6.0 Not Available [facility] ([facility]) [address] [place], [address], 07/08/2023 15:10:43 07/08/19 24 07/08/2023 urina lysis , dipst ick Blood Negati ve Not Available [facility] ([facility]) [address] [place], [address], 07/08/2023 15:10:43 07/08/19 24 07/08/2023 urina lysis , dipst ick Specific [place] 1.030 Not Available [facility] ( [facility]) [address] [place], [address], 07/08/2023 15:10:43 07/08/19 24 07/08/2023 urina lysis , dipst ick Ketone Negati ve Not Available [facility] ([facility]) [address] [place], [address], 07/08/2023 15:10:43 07/08/19 24 07/08/2023 urina lysis , dipst ick Bilirubin Negati ve Not Available [facility] ([facility]) [address] [place], [address], 07/08/2023 15:10:43 07/08/19 24 07/08/2023 urina lysis , dipst ick Glucose Negati ve Not Available [facility] ([facility]) [address] [place], [address], 07/08/2023 15:10:43 07/08/19 24 07/08/2023 urina lysis , dipst ick Appearance Clear Not Available [facility] ([facility]) [address] [place], [address], 07/08/2023 15:10:43 07/08/19 24 07/08/2023 urina lysis , dipst ick Color Dark Yellow Not Available [facility] ([facility]) [address] [place], [address], 07/08/2023 15:10:43 10/04/19 25 10/03/2024 pregn luana test, urine HCG positi ve Not Available [facility] ([facility]) [address] [place], [address], 10/03/2024 17:46:13 10/04/19 25 10/03/2024 urina lysis , dipst ick Leukocytes Trace Not Available [facility] ([facility]) [address] [place], [address], 10/03/2024 17:00:45 10/04/19 25 10/03/2024 urina lysis , dipst ick Nitrite negati ve Not Available [facility] ([facility]) [address] [place], [address], 10/03/2024 17:00:45 10/04/19 25 10/03/2024 urina lysis , dipst ick Urobilinogen .2 Not Available [facility] ([facility]) [address] [place], [address], 10/03/2024 17:00:45 10/04/19 25 10/03/2024 urina lysis , dipst ick Protein Negati ve Not Available [facility] ([facility]) [address] [place], [address], 10/03/2024 17:00:45 10/04/19 25 10/03/2024 urina lysis , dipst ick pH 7.0 Not Available [facility] ([facility]) [address] [place], [address], 10/03/2024 17:00:45 10/04/19 25 10/03/2024 urina lysis , dipst ick Blood Negati ve Not Available [facility] ([facility]) [address] [place], [address], 10/03/2024 17:00:45 10/04/19 25 10/03/2024 urina lysis , dipst ick Specific [place] 1.020 Not Available [facility] ( [facility]) [address] [place], [address], 10/03/2024 17:00:45 10/04/19 25 10/03/2024 urina lysis , dipst ick Ketone Negati ve Not Available [facility] ([facility]) [address] [place], [address], 10/03/2024 17:00:45 10/04/19 25 10/03/2024 urina lysis , dipst ick Bilirubin Negati ve Not Available [facility] ([facility]) [address] [place], [address], 10/03/2024 17:00:45 10/04/19 25 10/03/2024 urina lysis , dipst ick Glucose Negati ve Not Available [facility] ([facility]) [address] [place], [address], 10/03/2024 17:00:45 10/04/19 25 10/03/2024 urina lysis , dipst ick Appearance Clear Not Available [facility] ([facility]) [address] [place], [address], 10/03/2024 17:00:45 10/04/19 25 10/03/2024 urina lysis , dipst ick Color Yellow Not Available [facility] ([facility]) [address] [place], [address], 10/03/2024 17:00:45 10/07/19 25 10/03/2024 XR, kidne y + urete r + bladd er No observ ation record ed. [email or web address] [facility] [address], [address], 10/06/2024 11:23:01 10/07/19 25 10/03/2024 XR, kidne y + urete r + bladd er No observ ation record ed. [email or web address] [facility] [address] [place], [address], 10/06/2024 11:23:02 10/07/19 25 10/03/2024 XR, kidne y + urete r + bladd er No observ ation record ed. [email or web address] Not Available 10/07 09:31:42 Result Notes None recorded. Medical Equipment None Reported. Allergies Allergen ID Allergen Name Allergen Category Reaction Reaction Severity Criticality Documentation Date Start Date Code Code System Note Provider Name and Address Organization Details Recorded Time 61328 cayenne pepper fruits food Not available Not available Not available 07/08/2023 05787 [facility]JEET vallejo [facility] 15:34:39 17708 bagley pepper food Not available Not available Not available 07/08/2023 66003 MANJEET vallejo [facility] 15:34:44 Medications Name Sig Start Date Stop Date Status Note LastModified by Organization Details LastModified Time fluconazole 150 mg tablet Take 1 tablet by oral route as directed . 10/03 completed Not Available Not Available Not Available Motrin IB 200 mg tablet TAKE 1 TABLET (200 MG) BY ORAL ROUTE EVERY 6 HOURS NEEDED WITH FOOD active Not Available Not Available No t Available Tylenol 325 mg tablet TAKE 2 TABLETS (650 MG) BY ORAL ROUTE EVERY 6 HOURS NEEDED active Not Available Not Available No t Available Vitals Date Recorded Body height Body mass index (BMI) Body weight Oxygen saturation Oxygen saturation in Arterial blood by Pulse oximetry Heart rate Respiratory rate Body temperature Systolic And Diastolic Provider Name and Address Organization Details Last Updated DateTime 4 167.64 cm 43.6 kg/m2 163218. 94 g 100 % 100 % 85 /min 16 /min 97.1 [degF] 112/80 mm[Hg] Corinne Gutierrez [facility] 4 15:34:17 Date Recorded Body height Body mass index (BMI) Body weight Oxygen saturation Oxygen saturation in Arterial blood by Pulse oximetry Heart rate Respiratory rate Body temperature Provider Name and Address Organization Details Last Updated DateTime 3 167.64 cm 51.6 kg/m2 147866. 56 g 98 % 98 % 87 /min 19 /min 98.3 [degF] SOREN NUR [facility] 3 11:34:41 Date Recorded Body height Body mass index (BMI) Body weight Oxygen saturation Oxygen saturation in Arterial blood by Pulse oximetry Heart rate Body temperature Respiratory rate Systolic And Diastolic Provider Name and Address Organization Details Last Updated DateTime 5 167.64 cm 54 kg/m2 860009. 65 g 98 % 98 % 80 /min 98.2 [degF] 17 /min 116/80 mm[Hg] JEB PORTER [facility] 5 16:45:06 Social History None recorded. Functional Status None recorded. Mental Status None recorded. Family History Nothing Reported Notes:Father: Diabetes Melli tus Mother: Liver disease Medical History No medical history recorded. Gynecological HistoryNo gynecological history recorded. Obstetrics History GPAL:G 0 P 0 0 0 0 Immunizations Vaccine Type Date Status Note Provider Nam e and Address Organization Details Recorded Time Hep B, unspecified formulation 4 completed Not Available [facility] 10/03/2024 16:39:04 OPV 4 completed Not Available [facility] 10/03/2024 16:39:04 DTP-Hib 4 completed Not Available [facility] 10/03/2024 16:39:04 Hep B, unspecified formulation 5 completed Not Available [facility] 10/03/2024 16:39:04 OPV 5 completed Not Available [facility] 10/03/2024 16:39:04 DTP-Hib 5 completed Not Available [facility] 10/03/2024 16:39:04 MMR 6 completed Not Available [facility] 10/03/2024 16:39:04 Hep B, unspecified formulation 6 completed Not Available [facility] 10/03/2024 16:39:04 OPV 6 completed Not Available [facility] 10/03/2024 16:39:04 DTP-Hib 6 completed Not Available [facility] 10/03/2024 16:39:04 DTaP 7 completed Not Available [facility] 10/03/2024 16:39:04 DTaP 9 completed Not Available [facility] 10/03/2024 16:39:04 MMR 9 completed Not Available [facility] 10/03/2024 16:39:04 Hib (PRP-T) 9 completed Not Available [facility] 10/03/2024 16:39:04 OPV 9 completed Not Available [facility] 10/03/2024 16:39:04 varicella 9 completed Not Available [facility] 10/03/2024 16:39:04 COVID-19, mRNA, LNP-S, PF, 100 mcg/0.5mL dose or 50 mcg/0.25mL dose completed Not Available [facility] 10/03/2024 16:39:04 Influenza, split virus, trivalent, preservative 1 completed Not Available [facility] 10/03/2024 16:39:04 Influenza, split virus, trivalent, preservative 3 completed Not Available [facility] 10/03/2024 16:39:04 Past Encounters Encounter ID Performer Location Encounter Start Date Encounter Closed Date Diagnosis/Indication Diagnosis SNOMED-CT Code Diagnosis ICD10 Code Diagnosis Note [id number] JUAN BYRNE PA-C [facility] ([facility]) [address] [place] [phone] 09/22/2022 11:22:05 09/22/2022 11:52:46 Cough 46324156 R05.9 COVID-19 719296257 U07.1 Quarantine for 5 days then mask x 5d. RTC or to ER if any s/s of respirator y distress. [id number] GLORIA ALDANA [facility] ([facility]) [address] [place] [address] 07/08/2023 15:04:46 07/08/2023 15:52:28 Dysuria 64776315 R30.0 Urine negative. Will send for culture. Candidiasis of vagina 72 491937 B37.31 [id number] GLORIA ALDANA [facility] ([facility]) [address] [place] [phone] 10/03/2024 16:37:10 10/04/2024 11:59:44 Left lower quadrant pain 578779424 R10.32 Negative urine. Unable to reproduce abd pain with palpation. Follow up with PCP next week. X ray done. Patient then stated that she had missed last period. Urine test positive. If any worsening abdominal pain, vaginal bleeding, present to ER for further evaluation and treatment. Patient to call PCP Dr Salas Sunday to schedule follow up appt. Allergic rhinitis 220626 04 J30.9 May use otc meds like zyrtec and fluticason e nasal spray as needed for symptoms. Return to clinic with any new or worsening symptoms. Health Concerns Section Related Observation LastModified by Organization Detai ls LastModified Time None Recorded Concern Status LastModified by Organization Details LastModified Time None Recorded Advance Directives Directive None Recorded Payers Insurance Date Sequence Insurance Name Policy Number Policy Yao Covered Member ID Yao Member ID Guarantor Name 10/03/2024 2 [place] Mickimichel Che Echeverrias [id number] Cheyann D 10/06/[address] [facility] [id number] Cheyann D [place] [id number] Cheyann D 10/03/2024 2 [place] [facility] Chedangelon Che Gomez [id number] Cheyann D 10/03/2024 2 [facility] MEDICARE [facility] [place] Mickimichel Bolton Gomez [id number] Cheyann D 10/03/2024 1 [employer] (PPO) Mickimichel Bolton Gomez [id number] Cheyann D 10/03/2024 1 [place] [id number] Chedangelon Che Gomez [id number] Cheyann D 10/03/2024 1 [employer] [facility] (PPO) Cheyann D [place] [id number] Cheyann D 10/03/2024 2 [place] [id number] [facility] [id number] Cheyann D Notes Date Note Type Note Provider Name and Address Organization Details Recorded Time 09/22/2022 text/html COVID-19 Symptom s October 2019Reported bypatient.COVID-19 Signs and Symptomscough same; fever same; shortness of breath same; headache same; sore throat improving; diarrhea same; congestion same Contacts and Exposureclose contact with a confirmed or suspected case of COVID-19 Quality:dry cough Severity:no pain Onset/Timing:date of symptoms onset: (5) Associated Symptoms:chest pain;fatigue;body aches JUAN BYRNE PA-C [address] [place] [address], [phone], [facility], Jolanta 09/22/2022 11:52:35 07/08/2023 text/html LUTSReported bypatient.Location: urethra; bladder Quality:aching; dull Severity:worsening; mild; moderate Duration:3 days Timing:constant; sudden Context:not sexually active Aggravating Factors:none Alleviating Factors:Cranberry pills Associated Symptoms:no fever;pain during urination;urine odor;feelings of urgency;abnormal urine streamNotes:Patient also complains of vaginal discharge and itching since . Has used AZO UTI strips which she states was positive for leukocytes at home. GLORIA ALDANA [address] [place], [address], [facility], Jolanta 07/08/2023 16:00:44 10/03/2024 text/html Patient c/o LLQ abdominal pain. Has been going on about a week. Pain is intermittent. She describes it as sharp and stabbing. Some nausea but no diarrhea or vomiting. Denies any constipation. Last bowel movement was this AM per patient. Also c/o sinus symptoms for 3 days. Currently taking claritin and flonase since symptoms started. States that she has some green drainage in the AM. Denies any fever. GLORIA ALDANA [address] [place], [address], [facility], LCathie. 10/03/2024 19:00:16 OBGyn Episode No OBEpisode recorded.
[2024-12-27 20:28] VITALS: BP 116/68; PULSE 84; RESP 20; TEMP 36.7; O2SAT 100; BMI 51.0
--- NOTE | 2024-12-27 20:48 | USR_ITS ---
PROCEDURE INFORMATION: Exam: US , Limited Exam date and time: 12/27/2024 10:00 PM Age: 29 years old Clinical indication: complicated by abdominal or pelvic pain; Left lower quadrant; Second trimester (14 weeks 0 days to 27 weeks 6 days); Gestational age or lmp: 17w4d; ; Additional info: Severe pain, R/O abruption LABS AND CLINICAL REPORTS: Gestational age (Established): 17 w 4 d Estimated due date (Established): 06/02/2025 TECHNIQUE: Imaging protocol: Real-time ultrasound of the maternal uterus with image documentation. Exam focused on the clinical indication. COMPARISON: US OB <= 14 weeks fetus [id number] 10/28/2024 9:15 AM FINDINGS: Gestation: Single intrauterine . heart rate: 148 bpm Placenta: Placenta is posterior without abnormality. MATERNAL: Cervix: Cervical length measures 3.5 cm. US/US OB limited [id number] IMPRESSION: 1. Single live intrauterine . 2. Placenta is posterior without abnormality.
[2024-12-27 21:04] LABS: Hematocrit 36.2 % (36-47); Hemoglobin 11.50 g/dL (11.27-16.99); Mean Corpuscular HGB Conc 31.8 g/dL (30-55); Mean Corpuscular Hemoglobin 25.2 pg (27-33); Mean Corpuscular Volume 79.4 fl (85-98); Nucleated Red Blood Cells % 0 %; Platelet Count 318 10^3/cmm (157-399); Red Blood Count 4.56 10^6/uL (3.85-5.65); White Blood Count 9.46 10^3/uL (3.29-11.43)
[2024-12-27 21:18] LABS: Glucose Urine UA Negative (Normal); Nitrate Urine Negative (Negative); Specific Gravity, Urine 1.017 (1.005-1.030)
[2024-12-27 21:21] LABS: Add Urine Microscopic? YES
[2024-12-27 21:34] LABS: Alanine Aminotransferase 32 U/L (0-33); Albumin Level 3.8 g/dL (3.5-5.2); Alkaline Phosphatase 61 U/L (35-105); Anion Gap 18.9 (5-19); Aspartate Amino Transferase 28 U/L (0-32); Blood Urea Nitrogen 5 mg/dL (6-20); Calcium 9.4 mg/dL (8.5-10.5); Carbon Dioxide 21 mmol/L (22-29); Chloride 102 mmol/L (98-107); Creatinine Clr Calc Pharmacy 241.3183; Globulin 3.8 g/dL (1.3-4.6); Glucose 95 mg/dL (65-115); Osmolality Calculated 283 mOsm/kg (285-295); Potassium 3.9 mmol/L (3.5-5.1); Sodium 138 mmol/L (136-145); Total Protein 7.6 g/dL (6.6-8.7)
[2024-12-27] MEDS: ondansetron 2 mg/ML SDV 2 mL 4 MG IVP (21:53)
--- NOTE | 2024-12-27 22:28 | W.ED.ABDPA2 ---
HPI - Abdominal Pain General: Chief Complaint: Abdominal Pain Stated Complaint: 17 wk severe low left abd pain Time Seen by Provider: 12/27/24 20:42 History of Present Illness: 29-year-old female with 17-week gestation presents due to severe left cramping/side pain that started approximately 1700 tonight. This was starting to worsen in nature per patient is a sharp pain at 1720 tonight. This has waxed and waned. No dysuria. No fevers. This was abrupt in nature. Associated Symptoms: Reports nausea and vomiting; Denies chills and fever(s) Related Data Date of Last Menstrual Period: 08/26/24 Home Medications ?Medication ?Instructions ?Recorded ?Confirmed clobetasol 0.05 % topical ointment 1 applic topical BID PRN Rash 11/01/20 12/17/24 vit no.95-ferrous 1 tab PO DAILY 11/07/22 12/17/24 fumarate 28 mg-folic acid 800 mcg tablet () docusate sodium 100 mg capsule 100 mg PO DAILY 12/17/24 12/17/24 (Colace) magnesium hydroxide 400 mg/5 mL 5 ml PO DAILY PRN 12/17/24 12/17/24 oral suspension (Milk of Magnesia) Previous Rx's ?Medication ?Instructions ?Recorded famotidine 20 mg tablet (Pepcid) 20 mg PO BID #60 tabs 11/05/24 cefdinir 300 mg capsule 300 mg PO BID 10 days #20 caps 12/27/24 ondansetron 4 mg disintegrating 4 mg PO Q8H PRN nausea and 12/27/24 tablet vomiting 4 days #14 tabs Allergies Allergy/AdvReac Type Severity Reaction Status Date / Time pepper (genus Capsicum) Allergy Severe hives Verified 12/17/24 09:01 Review of Systems General: Reports: 10 or more systems reviewed and unremarkable except in HPI and below Const: Denies: fever(s) or chills Eyes: Denies: change in vision or blurry vision ENMT: Denies: throat pain or uvular edema Card: Denies: chest pain or palpitations GI: Reports: abdominal pain, nausea and vomiting : Denies: flank pain or difficulty voiding Musc: Denies: neck pain, back pain or extremity pain Neuro: Denies: headache(s) or numbness in extremities PFSH ED PFSH: Medical History (Updated 12/27/24 @ 22:33 by MARK Morton) Hidradenitis suppurativa On topical clindamycin---follows up with Dr. Wallace PCOS (polycystic ovarian syndrome) Diagnosed with PCOS at the age of 17 when she had irregular cycles. States that she had a hemoglobin A1c in 2019 that was 5.3. Surgical History H/O excision of mass (01/17/22) left chest wall S/P adenoidectomy At the age of 6 Family History Grandfather Heart disease maternal Diabetes paternal and maternal Grandmother Diabetes maternal Heart disease paternal Stroke paternal Father Diabetes Brother Thyroid disease Mother Hypertension Denies family history of Colon cancer Ovarian cancer Hyperlipidemia Breast cancer Uterine cancer Social History Smoking and tobacco/nicotine status: never used tobacco/nicotine Female Reproductive History: Date of last menstrual period: 08/26/24 Physical Exam Const: COMMON NORMALS: patient oriented x3 HENMT: THROAT: no uvular edema Lymph: LYMPHATIC: no lymphadenopathy noted Chest: COMMONS NORMALS: normal inspection of the chest and normal palpation of entire chest wall Resp: COMMON NORMALS: normal respiratory effort and No retractions Cardio: COMMON NORMALS: regular rate and regular rhythm RATE: regular rate RHYTHM: regular rhythm GI: COMMON NORMALS: Normal to inspection, nondistended, normoactive bowel sounds present and Soft to palpation PALPATION: Yes Soft to palpation : COMMON NORMALS: Yes no CVA tenderness BLADDER/KIDNEY EXAM: Yes no CVA tenderness Back/Pelvis: COMMON NORMALS: no CVA tenderness Extremity: COMMON NORMALS: normal to inspection and full ROM Neuro: EJ COMA SCALE: document GCS findings COMMON NORMALS: patient oriented x3 and CN's II-XII intact bilaterally Psych: COMMON NORMALS: mental status grossly normal and Normal thought process present THOUGHT PROCESS: Normal thought process present Course Reevaluation(s): Reevaluation #1: Proved after IV fluids, Zofran Vital Signs: Vital signs: Vital Signs Temperature 98.0 F 12/27/24 20:28 Pulse Rate 77 12/27/24 22:49 Respiratory Rate 18 12/27/24 22:49 Blood Pressure 136/77 12/27/24 22:49 Pulse Oximetry 100 12/27/24 22:49 Oxygen Delivery Me thod Room Air 12/27/24 20:28 MDM - Abdominal Pain Medical Decision Making Patient is 17-week gestation of single . She had sudden onset of left lateral abdominal pain. No concern of abruption. Laboratory data in range except pyuria is noted. Given , will treat, and this is most likely source. Patient will follow-up on Sunday with OB, and return to ED for further issues. Medical Records I reviewed the patient's medical records. Lab Data I reviewed the patient's lab results. 12/27/24 20:55 12/27/24 20:55 Labs/Radiology: Radiology Impressions Obstetrics Ultrasound 12/27/24 20:48 IMPRESSION: 1. Single live intrauterine . 2. Placenta is posterior without abnormality. Laboratory Results WBC 9.46 10^3/uL (3.29-11.43) 12/27/24 20:55 RBC 4.56 10^6/uL (3.85-5.65) 12/27/24 20:55 Hgb 11.50 g/dL (11.27-16.99) 12/27/24 20:55 Hct 36.2 % (36-47) 12/27/24 20:55 MCV 79.4 fl (85-98) L 12/27/24 20:55 MCH 25.2 pg (27-33) L 12/27/24 20:55 MCHC 31.8 g/dL (30-55) 12/27/24 20:55 RDW 15.9 % (12.1-15.1) H 12/27/24 20:55 Plt Count 318 10^3/cmm (157-399) 12/27/24 20:55 MPV 10.2 fL (7.4-10.4) 12/27/24 20:55 Neut % (Auto) 71.3 % 12/27/24 20:55 Lymph % (Auto) 20.6 % 12/27/24 20:55 [place] % (Auto) 5.6 % 12/27/24 20:55 Eos % (Auto) 1.8 % 12/27/24 20:55 Baso % (Auto) 0.3 % 12/27/24 20:55 Neut # (Auto) 6.74 10^3/uL (1.8-7.7) 12/27/24 20:55 Lymph # (Auto) 2.0 10^3/uL (0.8-4.8) 12/27/24 20:55 [place] # (Auto) 0.5 10^3/uL (0.2-0.9) 12/27/24 20:55 Eos # (Auto) 0.2 10^3/uL (0.0-0.8) 12/27/24 20:55 Baso # (Auto) 0.0 10^3/uL (0.0-0.1) 12/27/24 20:55 Nucleated RBC % (auto) 0 % 12/27/24 20: Nucleated RBCs # 0.0 /100WBC 12/27/24 20:55 Sodium 138 mmol/L (136-145) 12/27/24 20:55 Potassium 3.9 mmol/L (3.5-5.1) 12/27/24 20:55 Chloride 102 mmol/L (98-107) 12/27/24 20:55 Carbon Dioxide 21 mmol/L (22-29) L 12/27/24 20:55 Anion Gap 18.9 (5-19) 12/27/24 20:55 BUN 5 mg/dL (6-20) L 12/27/24 20:55 Creatinine 0.5 mg/dL (0.5-0.9) 12/27/24 20:55 GFR Calculation 144.9 mL/min (90-130) H 12/27/24 20:55 Glucose 95 mg/dL (65-115) 12/27/24 20:55 Calculated Osmolality 283 mOsm/kg (285-295) L 12/27/24 20:55 Calcium 9.4 mg/dL (8.5-10.5) 12/27/24 20:55 Total Bilirubin 0.2 mg/dL (0.15-1.2) 12/27/24 20:55 AST 28 U/L (0-32) 12/27/24 20:55 ALT 32 U/L (0-33) 12/27/24 20:55 Alkaline Phosphatase 61 U/L (35-105) 12/27/24 20:55 Total Protein 7.6 g/dL (6.6-8.7) 12/27/24 20:55 Albumin 3.8 g/dL (3.5-5.2) 12/27/24 20:55 Globulin 3.8 g/dL (1.3-4.6) 12/27/24 20:55 Ser , Semi-Qnt 29532.00 mIU/mL 12/27/24 20:55 Urine Color Yellow (Yellow) 12/27/24 21:00 Urine Appearance Turbid (CLEAR) A 12/27/24 21:00 Urine pH 8.0 (5-7) A 12/27/24 21:00 Ur Specific [place] 1.017 (1.005-1.030) 12/27/24 21:00 Urine Protein Negative (Negative) 12/27/24 21:00 Urine Glucose (UA) Negative (Normal) 12/27/24 21:00 Urine Ketones Negative (Negative) 12/27/24 21:00 Urine Blood Negative (Negative) 12/27/24 21:00 Urine Nitrate Negative (Negative) 12/27/24 21:00 Urine Bilirubin Negative (Negative) 12/27/24 21:00 Urine Urobilinogen 1.0 mg/dL (Negative) 12/27/24 21:00 Ur Leukocyte Esterase 2+ (Negative) A 12/27/24 21:00 Urine RBC 0-2 /hpf (0-2) 12/27/24 21:00 Urine WBC 6-10 /hpf (0-5) 12/27/24 21:00 Ur Squamous Epith Cells 11-20 /hpf (0-5) H 12/27/24 21:00 Amorphous Sediment Not Reportable 12/27/24 21:00 Urine Bacteria 1+ /hpf (NONE) H 12/27/24 21:00 Hyaline Casts 2.05 /lpf 12/27/24 21:00 Blood Type O Positive 12/27/24 21:17 Rho(D) Type Rh positive 12/27/24 21:17 Antibody Screen Negative 12/27/24 21:17 All radiology interpretation(s) finalized by discharge Discharge Plan Discharge Patient Disposition: Home Clinical Impression: UTI in Qualifiers: Trimester: second trimester Qualified Code(s): O23.42 - Unspecified infection of urinary tract in , second trimester Condition: Stable Prescriptions: New cefdinir 300 mg capsule 300 mg PO BID 10 Days Qty: 20 0RF ondansetron 4 mg tablet,disintegrating 4 mg PO Q8H PRN (Reason: nausea and vomiting) 4 Days Qty: 14 0RF No Action clobetasol 0.05 % ointment 1 applic topical BID PRN (Reason: Rash) Rx Instructions: to hands and ankles BID x 2 weeks alternating with triamcinolone famotidine [Pepcid] 20 mg tablet 20 mg PO BID Qty: 60 2RF magnesium hydroxide [Milk of Magnesia] 400 mg/5 mL suspension 5 ml PO DAILY PRN docusate sodium [Colace] 100 mg capsule 100 mg PO DAILY 28 mg iron- 800 mcg Tablet 1 tab PO DAILY Discharge Orders: Discharge ED (Routine); Ordered 12/27/24 Ordered By: Maria G Peacock Referrals: Slim Salas MD [Primary Care Provider, Family Practice] Patient Instructions: Urinary Tract Infection in (ED), Patient Portal & Nura Instructions Activity Restrictions/Additional Instructions: No sex/pelvic rest/no tampons until follow-up and pain has resolved Increase fluid intake of noncaffeinated beverage Take all antibiotics as prescribed. Your urine is currently awaiting culture. We will contact you if antibiotics need to be changed. Return to ED if you have worsening pain Stand Alone Forms: Work/School Release Print Language: Croatian Coding Level of Care Code ED Director Of Strategic Partnerships for Jared Mirza
[2024-12-27 22:49] VITALS: BP 136/77; PULSE 77; RESP 18; O2SAT 100
== END 2024-12-27 22:51 | disposition home or self-care (01) ==
PROVIDERS: Emergency Provider Physician Assistant; PCP Family Medicine
DX: O23.42 Unspecified infection of urinary tract in pregnancy, second trimester (principal); Z3A.17 17 weeks gestation of pregnancy
CPT/HCPCS: 36415; 76815; 80053; 81001; 84702; 85025; 86850; 86900; 87086; 96361; 96374; 99284; J2405; J7030

== ENCOUNTER → 2025-01-19 09:25 | Outpatient (BNVA) | payer OTHER, BC, SELFPAY | PROVIDERS: PCP Family Medicine; Visit Provider Obstetrics & Gynecology | DX: Z34.82 Encounter for supervision of other normal pregnancy, second trimester (principal) | CPT/HCPCS: 76805 ==

== ENCOUNTER → 2025-02-04 14:28 | Outpatient (BNVA) | payer OTHER, BC, SELFPAY | PROVIDERS: PCP Family Medicine; Visit Provider Obstetrics & Gynecology | DX: Z34.90 Encounter for supervision of normal pregnancy, unspecified, unspecified trimester (principal); O21.9 Vomiting of pregnancy, unspecified; D64.9 Anemia, unspecified | CPT/HCPCS: 80053; 84315; 85025 ==

== ENCOUNTER → 2025-02-11 09:23 | Outpatient (BNVA) | payer OTHER, BC, SELFPAY | PROVIDERS: PCP Family Medicine; Visit Provider Nurse Practitioner Women's Health | DX: Z34.90 Encounter for supervision of normal pregnancy, unspecified, unspecified trimester (principal) | CPT/HCPCS: 84315 ==

== ENCOUNTER → 2025-02-17 15:32 | Outpatient (BNVA) | payer OTHER, BC, SELFPAY | PROVIDERS: PCP Family Medicine; Visit Provider Obstetrics & Gynecology | DX: Z34.90 Encounter for supervision of normal pregnancy, unspecified, unspecified trimester (principal); Z3A.14 14 weeks gestation of pregnancy | CPT/HCPCS: 76816 ==

== ENCOUNTER → 2025-03-09 10:06 | Outpatient (BNVA) | payer OTHER, BC, SELFPAY | PROVIDERS: PCP Family Medicine; Visit Provider Obstetrics & Gynecology | DX: Z34.90 Encounter for supervision of normal pregnancy, unspecified, unspecified trimester (principal); E66.01 Morbid (severe) obesity due to excess calories; Z68.43 Body mass index [BMI] 50.0-59.9, adult | CPT/HCPCS: 82950; 84315; 85025 ==

== ENCOUNTER 2025-03-12 19:49 | Outpatient (CLI) | payer OTHER, BC, SELFPAY ==
[2025-03-12] VITALS (8 sets, daily range): BP systolic 118–137; BP diastolic 57–71; PULSE 73–93; BMI 52.2
[2025-03-12 21:19] LABS: Glucose Urine UA Negative (Normal); Nitrate Urine Negative (Negative); Specific Gravity, Urine 1.011 (1.005-1.030)
--- NOTE | 2025-03-12 21:35 | USR_ITS ---
PROCEDURE INFORMATION: Exam: US , Limited Exam date and time: 03/12/2025 9:55 PM Age: 30 years old Clinical indication: Lmp or gestational age (in weeks): 28; Antepartum complications; Bleeding; LABS AND CLINICAL REPORTS: Gestational age (Established): 28 w 2 d Estimated due date (Established): 06/02/2025 TECHNIQUE: Imaging protocol: Real-time ultrasound of the maternal uterus with image documentation. Exam focused on the clinical indication. COMPARISON: [place] [id number] 02/17/2025 3:41 PM FINDINGS: Gestation: Intrauterine gestation. heart rate: 153 bpm presentation and position: Breech. Placenta: Posterior placenta. MATERNAL: Cervix: Cervical length measures 3.2 cm. US/US OB limited [id number] IMPRESSION: 1. Single live intrauterine with normal heart rate. 2. Currently breech presentation.
== END 2025-03-12 22:44 | disposition home or self-care (01) ==
LOC: OPOB 19:57 → OBGYN 19:59
PROVIDERS: PCP Family Medicine; Visit Provider Family Medicine
DX: O26.859 Spotting complicating pregnancy, unspecified trimester (principal); Z3A.00 Weeks of gestation of pregnancy not specified; R25.2 Cramp and spasm
CPT/HCPCS: 59025; 76815; 81001; 87086; 99211

== ENCOUNTER → 2025-03-13 08:18 | Outpatient (BNVA) | payer OTHER, BC, SELFPAY | PROVIDERS: PCP Family Medicine; Visit Provider Obstetrics & Gynecology | DX: Z34.90 Encounter for supervision of normal pregnancy, unspecified, unspecified trimester (principal) | CPT/HCPCS: 82951; 82952 ==

== ENCOUNTER → 2025-04-02 08:45 | Outpatient (BNVA) | payer OTHER, BC, SELFPAY | PROVIDERS: PCP Family Medicine; Visit Provider Nurse Practitioner Women's Health | DX: Z34.90 Encounter for supervision of normal pregnancy, unspecified, unspecified trimester (principal); D64.9 Anemia, unspecified; Z01.419 Encounter for gynecological examination (general) (routine) without abnormal findings | CPT/HCPCS: 82465; 82728; 82746; 83550; 83718; 83721; 84315; 84443; 84478; 85025; 87086 ==

== ENCOUNTER → 2025-04-07 14:42 | Outpatient (BNVA) | payer OTHER, BC, SELFPAY | PROVIDERS: PCP Family Medicine; Visit Provider Nurse Practitioner Women's Health | DX: Z34.90 Encounter for supervision of normal pregnancy, unspecified, unspecified trimester (principal) | CPT/HCPCS: 81000 ==

== ENCOUNTER 2025-04-17 08:02 | Oncology outpatient (recurring) (ONCR) | payer OTHER, BC, SELFPAY ==
[2025-04-08 08:39] VITALS: BP 158/77; PULSE 92; RESP 17; TEMP 36.6; O2SAT 97
[2025-04-08] MEDS: iron sucrose 200 MG in sodium chloride 0.9% (100 ml) 100 ML IV (08:43)
[2025-04-08 09:44] VITALS: BP 112/74; PULSE 82; RESP 17; TEMP 36.1; O2SAT 99
[2025-04-10] MEDS: iron sucrose 200 MG/100 ML BAG IV (08:33)
[2025-04-10 09:10] VITALS: BP 115/70; PULSE 89; RESP 17; TEMP 36.2; O2SAT 99
[2025-04-13] MEDS: iron sucrose 200 MG/100 ML BAG IV (08:23)
[2025-04-13 09:27] VITALS: BP 124/72; PULSE 87; TEMP 36.2; O2SAT 98
[2025-04-15 08:02] VITALS: BP 139/63; PULSE 93; RESP 18; TEMP 36.1; O2SAT 93
[2025-04-15] MEDS: iron sucrose 200 MG/100 ML BAG IV (08:25)
[2025-04-15 09:10] VITALS: BP 124/68; PULSE 84; RESP 17; TEMP 36.6; O2SAT 96
[2025-04-17] MEDS: iron sucrose 200 MG/100 ML BAG IV (08:14)
[2025-04-17 09:16] VITALS: BP 127/75; PULSE 85; RESP 17; TEMP 36.2; O2SAT 99
== END 2025-04-17 23:59 | disposition home or self-care (01) ==
PROVIDERS: PCP Family Medicine; Visit Provider Nurse Practitioner Women's Health
DX: D64.9 Anemia, unspecified; Z79.899 Other long term (current) drug therapy; Z53.9 Procedure and treatment not carried out, unspecified reason
CPT/HCPCS: 96365; J1756; J7050

== ENCOUNTER → 2025-04-21 13:02 | Outpatient (BNVA) | payer OTHER, BC, SELFPAY | PROVIDERS: PCP Family Medicine; Visit Provider Nurse Practitioner Women's Health | DX: Z34.90 Encounter for supervision of normal pregnancy, unspecified, unspecified trimester (principal) | CPT/HCPCS: 84315 ==

== ENCOUNTER 2025-05-01 15:56 | Outpatient (CLI) | payer OTHER, BC, SELFPAY ==
--- NOTE | 2025-05-01 16:00 | USR_ITS ---
PROCEDURE INFORMATION: Exam: US , Follow up Exam date and time: 05/01/2025 4:08 PM Age: 30 years old Clinical indication: Screening exam; Routine US, uterus; Additional info: Z34.90 - encounter for supervision of normal , u. . . , LABS AND CLINICAL REPORTS: Gestational age (Established): 35 w 3 d Estimated due date (Established): 06/02/2025 TECHNIQUE: Imaging protocol: Transabdominal ultrasound of the uterus, real time with image documentation. Follow-up (eg, re-evaluation of size by measuring standard growth parameters and amniotic fluid volume, re-evaluation of organ system(s) suspected or confirmed to be abnormal on a previous scan). COMPARISON: US OB follow up [facility] 04/21/2025 12:39 PM FINDINGS: Gestation: There is a single IUP in a breech presentation. Placenta is posterior. Cervix is not well-visualized. heart rate: 144 bpm Amniotic fluid index: NOHELIA is 9.15 cm. BIOMETRY: Estimated weight: 2778.6 g. EFW by AC, BPD, FL, HC, [place] 1985 Biparietal diameter (BPD): 8.95 cm. EGA (BPD) is 36 w 2 d. 76.5 % percentile Head circumference (HC): 33.35 cm. EGA (HC) is 38 w 1 d. 81.4 % percentile Abdominal circumference (AC): 31.55 cm. EGA (AC) is 35 w 3 d. 59.9 % percentile Femur length (FL): 6.91 cm. EGA (FL) is 35 w 3 d. 44.7 % percentile HC/AC: 1.06. (Normal range: 0.92 - 1.07) FL/HC: 20.72. (Normal range: 20.3 - 22.24) FL/BPD: 77.21. (Normal range: 71 - 87) FL/AC: 21.9. (Normal range: 20 - 24) US/[place] [id number] IMPRESSION: Single IUP at 35 weeks 3 days with EDC 06/02/2025 at the 60th percentile of growth in the breech presentation.
== END 2025-05-01 15:57 | disposition home or self-care (01) ==
LOC: RAD 15:57
PROVIDERS: PCP Family Medicine; Visit Provider Nurse Practitioner Women's Health
DX: Z34.93 Encounter for supervision of normal pregnancy, unspecified, third trimester (principal); Z3A.35 35 weeks gestation of pregnancy
CPT/HCPCS: 76816

== ENCOUNTER → 2025-05-06 16:19 | Outpatient (BNVA) | payer OTHER, BC, SELFPAY | PROVIDERS: PCP Family Medicine; Visit Provider Obstetrics & Gynecology | DX: Z34.93 Encounter for supervision of normal pregnancy, unspecified, third trimester (principal); Z3A.36 36 weeks gestation of pregnancy; D64.9 Anemia, unspecified | CPT/HCPCS: 84315; 85025; 87081 ==

== ENCOUNTER 2025-05-07 08:47 | Outpatient (CLI) | payer OTHER, BC, SELFPAY ==
[2025-05-07] VITALS (9 sets, daily range): BP systolic 130–181; BP diastolic 71–83; PULSE 90–109; RESP 18; TEMP 36.9; BMI 52.8
[2025-05-07 10:09] LABS: Glucose Urine UA Negative (Normal); Nitrate Urine Negative (Negative)
[2025-05-07 10:21] LABS: Specific Gravity, Urine 1.032 (1.005-1.030)
[2025-05-07 10:31] LABS: Hematocrit 38.2 % (36-47); Hemoglobin 12.00 g/dL (11.27-16.99); Mean Corpuscular HGB Conc 31.4 g/dL (30-55); Mean Corpuscular Hemoglobin 26.4 pg (27-33); Mean Corpuscular Volume 84.0 fl (85-98); Nucleated Red Blood Cells % 0 %; Platelet Count 249 10^3/cmm (157-399); Red Blood Count 4.55 10^6/uL (3.85-5.65); White Blood Count 9.39 10^3/uL (3.29-11.43)
[2025-05-07 10:53] LABS: Alanine Aminotransferase 13 U/L (0-33); Albumin Level 3.5 g/dL (3.5-5.2); Alkaline Phosphatase 99 U/L (35-105); Anion Gap 16.1 (5-19); Aspartate Amino Transferase 19 U/L (0-32); Blood Urea Nitrogen 8 mg/dL (6-20); Calcium 9.5 mg/dL (8.5-10.5); Carbon Dioxide 23 mmol/L (22-29); Chloride 102 mmol/L (98-107); Globulin 3.6 g/dL (1.3-4.6); Glucose 108 mg/dL (65-115); Osmolality Calculated 283 mOsm/kg (285-295); Potassium 4.1 mmol/L (3.5-5.1); Sodium 137 mmol/L (136-145); Total Protein 7.1 g/dL (6.6-8.7); Uric Acid 6.1 mg/dL (2.4-5.7)
[2025-05-07 11:01] LABS: UPRO/UCREAT Ratio 0.13 mg/mg CR
[2025-05-07] MEDS: nitrofurantoin SR (BID) 100 mg Capsule PO (11:30)
== END 2025-05-07 12:40 | disposition home or self-care (01) ==
LOC: OPOB 08:50 → OBGYN 08:51
PROVIDERS: PCP Family Medicine; Visit Provider Obstetrics & Gynecology
DX: O26.899 Other specified pregnancy related conditions, unspecified trimester (principal); Z3A.00 Weeks of gestation of pregnancy not specified; R11.2 Nausea with vomiting, unspecified; R51.9 Headache, unspecified
CPT/HCPCS: 36415; 59025; 80053; 81001; 82570; 83615; 84156; 84550; 85025; 87086; 99211; J9999; Q0162

== ENCOUNTER 2025-05-17 06:44 | Inpatient (IN) | payer OTHER, BC, SELFPAY ==
[2025-05-07 11:00] VITALS: RESP 18; TEMP 36.9
[2025-05-17] VITALS (75 sets, daily range): BP systolic 116–164; BP diastolic 55–90; PULSE 61–97; RESP 16–18; TEMP 36.7–36.8; O2SAT 97–100; BMI 55.7
[2025-05-17 07:16] LABS: Hematocrit 35.2 % (36-47); Hemoglobin 11.20 g/dL (11.27-16.99); Mean Corpuscular HGB Conc 31.8 g/dL (30-55); Mean Corpuscular Hemoglobin 26.4 pg (27-33); Mean Corpuscular Volume 83.0 fl (85-98); Nucleated Red Blood Cells % 0 %; Platelet Count 262 10^3/cmm (157-399); Red Blood Count 4.24 10^6/uL (3.85-5.65); White Blood Count 8.25 10^3/uL (3.29-11.43)
[2025-05-17 07:35] LABS: Nitrazine Paper, PH Positive
--- NOTE | 2025-05-17 08:52 | PM.OBGYHP ---
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 Labs Rubella: Immune RPR: Negative GBS: Negative Review of Systems Narrative: OB: movement: [+] Const: Denies: fever(s) or chills Card: Denies: chest pain, palpitations or syncope Resp: Denies: dyspnea GI: Denies: abdominal pain, nausea or vomiting : Denies: flank pain, dysuria or urinary frequency Musc: Denies: back pain or extremity swelling Skin/Breast: Denies: rash, pruritus or breast pain Neuro: Denies: headache(s) or dizziness Psych: Denies: anxiety, depression or mood swings Endo: Denies: polyuria, tired all the time, cold intolerance or heat intolerance Zheng/Lymph: Denies: easy bruising or easy bleeding All/Imm: Denies: urticaria Medications/Allergies Home Medications ?Medication ?Instructions ?Recorded ?Confirmed ?Last Taken ?Type clobetasol 0.05 % topical ointment 1 applic topical BID PRN Rash 11/01/20 05/17/25 01/15/22 History vit no.95-ferrous 1 tab PO DAILY 11/07/22 05/17/25 05/16/25 20:00 History fumarate 28 mg-folic acid 800 mcg tablet () docusate sodium 100 mg capsule 100 mg PO DAILY 12/17/24 05/17/25 05/16/25 20:00 History (Colace) magnesium hydroxide 400 mg/5 mL 5 ml PO DAILY PRN Heartburn 12/17/24 05/17/25 05/15/25 20:00 History oral suspension (Milk of Magnesia) L. 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 Wallace PCOS (polycystic ovarian syndrome) Diagnosed with PCOS at the age of 17 when she had irregular cycles. States that she had a hemoglobin A1c in 2020 that was 5.3. Surgical History (Updated 05/17/25 @ 08:55 by Saundra Camara MD) H/O excision of mass (01/17/22) left chest wall S/P adenoidectomy At the age of 6 Family History Grandfather Heart disease maternal Diabetes paternal and maternal Grandmother Diabetes maternal Heart disease paternal Stroke paternal Father Diabetes Brother Thyroid disease Mother Hypertension Denies family history of Colon cancer Ovarian cancer Hyperlipidemia Breast cancer Uterine cancer Social History Smoking and tobacco/nicotine status: never used tobacco/nicotine Other Female Reproductive History: Hx Age of Menarche: 11 History History History 1 Term Miscarriages/Ectopic Living Children Care KYLE Calculator Estimated Delivery Date Method Current WG Current Estimate 06/02/25 LMP (Certain) 37w 5d Other Estimates 06/03/25 Ultrasound #1 37w 4d Specific Issues/Plans OBESITY: early gtt done 11/05/24 WNL, failed second 1 hr gct and passed 3 hr WNL ANEMIA PCOS GERD NAUSEA Vitals/I&O/Wt Last Vital Signs Temp 98.4 F 05/07/25 11:00 Pulse 84 05/17/25 07:20 Resp 18 05/07/25 11:00 BP 140/75 05/17/25 07:20 O2 Del Method Room Air 05/17/25 06:49 Weight last 48 hrs Weight 345 lb Physical Exam Narrative: Appearance: grossly normal Attitude: calm and engaged, appropriate eye contact Const: no acute distress, oriented x3 cooperative Chest: Symmetrical chest wall rise Resp: normal respiratory effort, clear to auscultation bilaterally Cardio: regular rate and regular rhythm GI: Soft to palpation, gravid, Non Tender, no Guarding cvx 3/60/-3, vertex per staff on admit Extremity: normal inspection, + pedal edema Neuro: oriented x3 and moves all extremities, speech normal Psych: mental status grossly normal, and Normal thought process present Skin: no rashes or lesions noted Data 05/17/25 07:00 Results Labs OB ([facility]): Obstetrics 05/01/25 Blood Type O Positive Today Antibody Screen Negative Today Hct, (36-47) 35.2 % L Today Hgb, (11.27-16.99) 11.20 g/dL L Today Rho(D) Type Rh positive Today Plt Count, (157-399) 262 10^3/cmm Today Hep Bs Antigen, (Nonreactive) Non-reactive 11/05/24 Hepatitis C Antibody, (Nonreactive) Non-reactive 11/05/24 Rubella IgG Antibody, (0.0-10.0) 82.9 IU/mL H 11/05/24 RPR, (Nonreactive) Nonreactive 11/05/24 HIV 1&2 Ab & HIV 1 Ag, (Non-Reactiv) Non-reactive 11/05/24 TSH, (0.27-4.20) 2.43 uIU/mL 04/02/25 Free T4, (0.82-1.77) 1.09 ng/dL 04/15/24 T. vaginalis Amp RNA, (NOT DETECTED) Not detected 10/24/24 Glucose 1 Hr 50 gm, (85-140) 153 mg/dL H 03/09/25 Gest Glucose Tolerance mg/dL 03/13/25 Hemoglobin A1c, (4.0-6.0) 5.5 % 12/17/24 Uric Acid, (2.4-5.7) 6.1 mg/dL H 05/07/25 Ser , Semi-Qnt 51627.00 mIU/mL 12/27/24 HCG, Qual, (Negative) Positive H 10/28/24 Urine Opiates Screen, (Negative) Negative ng/mL 11/05/24 Ur Barbiturates Screen, (Negative) Negative ng/mL 11/05/24 Ur Phencyclidine Scrn, (Negative) Negative ng/mL 11/05/24 Ur Amphetamines Screen, (Negative) Negative ng/mL 11/05/24 U Benzodiazepines Scrn, (Negative) Negative ng/mL 11/05/24 Urine Cocaine Screen, (Negative) Negative ng/mL 11/05/24 U Marijuana (THC) Screen, (Negative) Negative ng/mL 11/05/24 Micro Urine Specimen 05/07/25 Pap Smear Interpret See comment 01/04/24 A&P Assessment and plan 1. Amniotic fluid leaking: Admitted this am for SROM, some contractions. Future epidural PRN. Add pitocin if needed for progression. 2. 37 weeks gestation of : 3. Morbid obesity with BMI of 50.0-59.9, adult: PDMP PDMP Reviewed: Not Reviewed Attestations Medical Necessity Statement*: NA Coding Level of Care Code Acute Code for Chg Fwd Diagnoses Amniotic fluid leaking O42.90 37 weeks gestation of Z3A.37 Morbid obesity with BMI of 50.0-59.9, adult E66.01; Z68.43
--- NOTE | 2025-05-17 09:32 | ANES.PREANE2 ---
Pre-Anesthetic Assessment Height/Weight: Height 1.68 m Weight 156.489 kg Temp Pulse Resp BP O2 Del Method 98.4 F 75 18 132/81 Room Air 05/07/25 11:00 05/17/25 09:22 05/07/25 11:00 05/17/25 09:22 05/17/25 06:49 Epidural Familial anesthetic complications: None Was Beta Live taken within 24 hours: N/A Was Clonidine taken within 24 hours: N/A Last intake: > 8 hrs Social No alcohol and No tobacco Exam alert, oriented x 3, clear to auscultation bilaterally and regular rate & rhythm Airway Mallampati: Class III Dentition: full Metabolic Morbid Obesity Anesthetic Plan ASA status: 3 Anesthesia: Regional (specify below) Risk of > 500 ml blood loss (7ml/kg in children): No Medications/Allergies Home Medications ?Medication ?Instructions ?Recorded ?Confirmed ?Last Taken ?Type clobetasol 0.05 % topical ointment 1 applic topical BID PRN Rash 11/01/20 05/17/25 01/15/22 History vit no.95-ferrous 1 tab PO DAILY 11/07/22 05/17/25 05/16/25 20:00 History fumarate 28 mg-folic acid 800 mcg tablet () docusate sodium 100 mg capsule 100 mg PO DAILY 12/17/24 05/17/25 05/16/25 20:00 History (Colace) magnesium hydroxide 400 mg/5 mL 5 ml PO DAILY PRN Heartburn 12/17/24 05/17/25 05/15/25 20:00 History oral suspension (Milk of Magnesia) L. crispatus, gasseri, jensenii, 1 tab PO 1XD 03/09/25 05/17/25 05/16/25 20:00 History rhamnosus 12 billion cell chew tablet ferrous sulfate 325 mg (65 mg 325 mg PO DAILY 04/21/25 05/17/25 05/16/25 20:00 History iron) tablet Allergies Allergy/AdvReac Type Severity Reaction Status Date / Time pepper (genus Capsicum) Allergy Severe hives Verified 05/17/25 07:03 Current Medications Generic Name Dose Route Start Last Admin Trade Name Freq PRN Reason Stop Dose Admin Dextrose/Lactated Ringer's 1,000 mls @ 125 mls/hr 05/17/25 06:45 05/17/25 07:02 Dextrose 5%-Lactated Ringers IV 125 mls/hr .Q8H ALEXIA Administration PFSH Anesthesia Medical History (Updated 05/17/25 @ 08:55 by Saundra Camara MD) Hidradenitis suppurativa On topical clindamycin---follows up with Dr. Wallace PCOS (polycystic ovarian syndrome) Diagnosed with PCOS at the age of 17 when she had irregular cycles. States that she had a hemoglobin A1c in 2020 that was 5.3. Surgical History (Updated 05/17/25 @ 08:55 by Saundra Camara MD) H/O excision of mass (01/17/22) left chest wall S/P adenoidectomy At the age of 6 Family History Grandfather Heart disease maternal Diabetes paternal and maternal Grandmother Diabetes maternal Heart disease paternal Stroke paternal Father Diabetes Brother Thyroid disease Mother Hypertension Denies family history of Colon cancer Ovarian cancer Hyperlipidemia Breast cancer Uterine cancer Social History Smoking and tobacco/nicotine status: never used tobacco/nicotine Data Anesthesia 05/17/25 07:00 Short CBC 05/17/25 Range/Units 07:00 WBC 8.25 (3.29-11.43) 10^3/uL Hgb 11.20 L (11.27-16.99) g/dL Hct 35.2 L (36-47) % MCV 83.0 L (85-98) fl Plt Count 262 (157-399) 10^3/cmm Neut % (Auto) 71.8 % Neut # (Auto) 5.92 (1.8-7.7) 10^3/uL Blood Bank 05/17/25 07:00 Blood Type O Positive Rho(D) Type Rh positive Antibody Screen Negative
[2025-05-17] MEDS: oxytocin 30 UNIT/500 ML BAG IV (09:40)
[2025-05-17] MEDS: fentaNYL 50 mcg/mL INJ 2mL IVP (10:17)
--- NOTE | 2025-05-17 12:41 | ANES.PROC ---
Anesthesia Procedures Procedure/Date: 05/17/25 Epidural: Time Out Performed: Yes Consents Signed: Procedure Consent Consent: requested by attending/covering physician, from patient, from other, risks and benefits reviewed and patient agrees to proceed Lumbar Level: L2-L3 Epidural position: sitting Epidural procedure: sterile prep of area, 1% lidocaine to numb the area, 18 g needle, negative for paresthesia passed, neg for paresthesia, test dose given, 1.5% xylocaine 1:200k epi (5), 0.2% Ropivacaine bolus ml (5), placed PCEA, no systemic response, sterile dressing applied, L.U.D. no apparent complications and 0.2% Ropiavacaine @ mls/hr (13) Additional Comments: DORIS at 9 cm with pressure, threaded to 15 cm, pain decreased from 8/10 to 5/10 with following contraction. Encouraged bolus use.
[2025-05-17] MEDS: citric acid-sodium citrate 30 mL UDC PO (13:59)
[2025-05-17] MEDS: metoclopramide 5 mg/mL SDV 2 mL 10 MG IVP (14:00)
--- NOTE | 2025-05-17 14:04 | PM.MISC ---
Miscellaneous Note Note: So patient reported lots of movement, and nurse went to check and baby is breech and cvx 5-[address] Camara
[2025-05-17] MEDS: ceFAZolin 3,000 MG in sodium chloride 0.9% (plus) 100 ML 200 MG IV (14:20)
--- NOTE | 2025-05-17 14:59 | PM.OP ---
Operative Report Date of procedure: May 17, 2025 Pre-op diagnosis: IUP@ 37+5 wks, SROM, breech, BMI 56 Post-op diagnosis: same Procedure done: PLTCS Specimens removed/disposition: placenta Surgeon: Saundra Camara MD Blood Bank Worker: OR staff Estimated blood loss: 600 Findings: viable breech infant, + terminal meconium during extraction, normal uterus and adnexa Procedure: The patient had verified consent and time out. She was prepped and draped in sterile fashion. Epidural anesthesia found adequate. Pfannensteil skin incision made after additional tape for retraction set up. Incision in layers until fascia incised and extended bilaterally. Rectus muscles and peritoneum entered. Akhil retractor placed. Low transverse incision made with scalpel and extended. Breech extraction performed and nuchal reduced. Baby suctioned and cord clamped at 30 seconds then placenta removed. TXA and pitocin given. Uterus cleaned then incision closed with chromic. Incision hemostatic. Peritoneum closed. Fascia closed with vicryl. Subcutaneous irrigated and hemostatic with cautery then closed with chromic interrupteds. Insorb used to close skin. All counts correct and mom and baby to recovery.
[2025-05-17] MEDS: ondansetron 2 mg/ML SDV 2 mL 4 MG IVP (22:54)
[2025-05-18] VITALS (11 sets, daily range): BP systolic 118–186; BP diastolic 63–98; PULSE 74–102; RESP 16; TEMP 35.7–36.9
[2025-05-18 05:24] LABS: Hematocrit 31.0 % (36-47); Hemoglobin 9.80 g/dL (11.27-16.99); Mean Corpuscular HGB Conc 31.6 g/dL (30-55); Mean Corpuscular Hemoglobin 27.0 pg (27-33); Mean Corpuscular Volume 85.4 fl (85-98); Platelet Count 231 10^3/cmm (157-399); Red Blood Count 3.63 10^6/uL (3.85-5.65); White Blood Count 9.81 10^3/uL (3.29-11.43)
--- NOTE | 2025-05-18 05:24 | P.PN_ITS ---
Subjective 2 Subjective: Cathter out x 1 hour. Tired but doing well. No n, v. Lochia wnl. Vitals/I&O/Wt Last Vital Signs Temp 98.0 F 05/17/25 15:31 Pulse 83 05/18/25 03:22 Resp 18 05/17/25 15:31 BP 138/77 05/18/25 03:22 Pulse Ox 99 05/17/25 15:31 O2 Del Method Room Air 05/17/25 15:31 05/17/25 05/17/25 05/18/25 14:59 22:59 06:59 Intake Total 2100 / 2100 Output Total 1455 / 1455 425 / 1880 Balance 645 / 645 -425 / 220 Weight last 48 hrs Weight 345 lb Physical Exam 2 Narrative: Appearance: grossly normal Attitude: calm and engaged, appropriate eye contact Const: no acute distress, oriented x3 cooperative Chest: Symmetrical chest wall rise Resp: normal respiratory effort, clear to auscultation bilaterally Cardio: regular rate and regular rhythm GI: Soft to palpation, Non Tender, no Guarding, no masses, dressing dry, no skin changes Extremity: normal inspection, + pedal edema Neuro: oriented x3 and moves all extremities, speech normal Psych: mental status grossly normal, and Normal thought process present Skin: no rashes or lesions noted Urinary Catheter Management: Levine Latex: Cath Placed During This Visit: yes, but has since been removed by the nurse Reason for Continuing Indwelling Catheter: Decision to DC Catheter Urinary Catheter Date of Insertion: 05/17/25 Urinary Catheter Time of Insertion: 13:34 Date Urinary Catheter Removed: 05/18/25 Time Urinary Catheter Discontinued: 03:18 Data 05/18/25 05:01 A&P Assessment and plan 1. delivery indicated due to breech presentation: POD#1, lovenox to start this afternoon due to BMI risk factor. Hgb 9.8 from 11.2. stable, continue pp care. 2. Morbid obesity with BMI of 50.0-59.9, adult: 3. 37 weeks gestation of : 4. Amniotic fluid leaking: PDMP PDMP Reviewed: Not Reviewed Attestations 2 Medical Necessity Statement*: NA Coding Level of Care Code Acute Code for Chg Fwd Diagnoses delivery indicated due to breech presentation O32.1XX0 Morbid obesity with BMI of 50.0-59.9, adult E66.01; Z68.43 37 weeks gestation of Z3A.37 Amniotic fluid leaking O42.90
[2025-05-18] MEDS: HYDROcodone-acetaminophen 5-325 mg Tablet PO ×3 (05:42→20:50)
--- NOTE | 2025-05-18 08:05 | ANE.PACU2 ---
Inpatient post-anesthesia follow up: Airway intact: Yes Vital signs: Temperature 98.0 F Pulse Rate 83 Respiratory Rate 18 Blood Pressure 138/77 Pulse Oximetry 99 Oxygen Delivery Me thod Room Air Oxygen Flow Rate Fraction of Inspir ed Oxygen Hydration adequate: Yes Nausea and vomiting: No Pain level: 1 Mental status: Baseline Epidural Start/End: Epidural Start Date: 05/17/25 Epidural Start Time: 12:00 Epidural End Date: 05/17/25 Epidural End Time: 14:30
[2025-05-18] MEDS: ferrous sulfate EC 325 mg Tablet PO ×2 (09:11→18:57)
--- NOTE | 2025-05-18 21:25 | PC.NURSE ---
blood pressure taken at 2043 and 204405/18/25 was taken as patient had just gotten back into bed after showering and walking in the room.
[2025-05-19] MEDS: HYDROcodone-acetaminophen 5-325 mg Tablet PO ×5 (00:50→20:30)
[2025-05-19 04:49] VITALS: BP 126/66; PULSE 74
[2025-05-19 04:50] VITALS: BP 126/66; PULSE 86; RESP 16; TEMP 36.8; O2SAT 98
[2025-05-19] MEDS: PRENATAL VIT NO.130/IRON/FOLIC 1 EACH TABLET PO (05:11)
--- NOTE | 2025-05-19 09:23 | PM.OBGYPN ---
[employer] [facility] Subjective Subjective: Interval history: Author / Clinician: Neptali Ribera MD ([employer] [facility]) Subjective Chief Complaint: ?Follow-up on my and pain at the incision site.? History of Present Illness: 30-year-old female, day #2 following primary low-transverse section for breech presentation at 37 weeks? gestation. Admitted initially with amniotic fluid leak; sang-operative course notable for post-op Hgb decrease from 11.2 ? 9.8. BMI 55.7; started on prophylactic enoxaparin. Reports increased pain at the incision last night requiring three doses of opioid analgesia; requests to remain in L&D an additional day for pain control. Afebrile, tolerating oral intake, ambulating independently, and voiding without difficulty. Denies nausea or vomiting. Review of Systems: ? Constitutional: No acute distress. ? HEENT: No dizziness reported today. ? Cardiovascular: No chest pain, palpitations. ? Respiratory: No shortness of breath. ? Gastrointestinal: Denies nausea, vomiting; tolerating PO. ? Genitourinary: Voiding without difficulty. ? Musculoskeletal: Ambulating independently. ? Integumentary: Incision pain as noted; no rash/lesions. ? Neurologic: No current syncope; prior episodes at home. (Only systems reviewed above were discussed.) Objective Vital Signs: Measure Value Blood Pressure 126/66 mmHg Temperature Afebrile Physical Exam: General: Calm, resting in bed, no acute distress. Cardiovascular: Regular rate and rhythm. Respiratory: Normal respiratory effort. Abdomen: Soft, non-tender, no guarding. incision clean, dry, intact; no erythema, drainage, or dehiscence; bandage previously removed without complication. Genitourinary: Lochia decreasing, appropriate for day #2. Skin: No rashes or lesions. Neurologic: Awake, alert & oriented ?3; speech and mentation normal. Musculoskeletal: Ambulating independently. Laboratory data relevant for visit: ? Post-operative hemoglobin 9.8 g/dL (down from 11.2 g/dL pre-op). Labor: Station: -3 Amniotic Membrane Status: Ruptured Monitor Mode: External Contraction Pattern: Regular Vitals/I&O/Wt Last Vital Signs Temp 98.2 F 05/19/25 04:50 Pulse 86 05/19/25 04:50 Resp 16 05/19/25 04:50 BP 126/66 05/19/25 04:50 Pulse Ox 98 05/19/25 04:50 O2 Del Method Room Air 05/19/25 04:50 Physical Exam Urinary Catheter Management: Levine Latex: Cath Placed During This Visit: yes, but has since been removed by the nurse Reason for Continuing Indwelling Catheter: Decision to DC Catheter Urinary Catheter Date of Insertion: 05/17/25 Urinary Catheter Time of Insertion: 13:34 Date Urinary Catheter Removed: 05/18/25 Time Urinary Catheter Discontinued: 03:18 Data 05/18/25 05:01 A&P Assessment and plan 1. delivery indicated due to breech presentation: 2. Morbid obesity with BMI of 50.0-59.9, adult: 3. 37 weeks gestation of : 4. Amniotic fluid leaking: Plan: Assessment & Plan 30-year-old day #2 after for breech, overall stable, managing post-operative pain, on VTE prophylaxis, and ambulating well. Anticipated discharge tomorrow pending continued stability and pain control. Problem #1: Post-operative pain, status-post section Assessment: Increased incision pain last night requiring opioid analgesia; incision appears healthy with no infection. Plan: - Continue analgesia as needed; reassess pain control later today. - Monitor incision for signs of infection. - Patient requests to remain in L&D one additional night; anticipate discharge tomorrow if pain adequately controlled. Problem #2: status, day #2 s/p Assessment: Uncomplicated immediate course. Lochia appropriate, afebrile, ambulating, tolerating diet, voiding spontaneously. Plan: - Routine monitoring. Problem #3: Morbid obesity (BMI 55.7) Assessment: Increases risk for postoperative and thromboembolic complications. Plan: - Continue prophylactic enoxaparin as initiated. - Encourage early ambulation. Problem #4: Post-operative anemia (Hgb 9.8 g/dL) Assessment: Mild postop drop; hemodynamically stable. Plan: - Monitor for symptoms; no intervention needed at this time. Plan: - Continue inpatient monitoring. ? Anticipate discharge home tomorrow if pain is adequately controlled. Current Medications: ? Enoxaparin (Lovenox) ? prophylaxis dose (BMI-based). PDMP PDMP Reviewed: Not Reviewed Attestations Medical Necessity Statement*: section, pain control, thromboembolic prophylaxis Coding Level of Care Code Acute Code for Chg Fwd Diagnoses delivery indicated due to breech presentation O32.1XX0 Morbid obesity with BMI of 50.0-59.9, adult E66.01; Z68.43 37 weeks gestation of Z3A.37 Amniotic fluid leaking O42.90
[2025-05-19 09:57] VITALS: BP 133/68; PULSE 96; RESP 16; TEMP 37
[2025-05-19 17:19] VITALS: BP 123/59; PULSE 87
--- NOTE | 2025-05-19 17:45 | PC.NURSE ---
encouraged ambulation, this communications writer has not seen her out of the room at all today.
[2025-05-19] MEDS: ferrous sulfate EC 325 mg Tablet PO (18:24)
[2025-05-19 22:00] VITALS: BP 125/69; PULSE 90; RESP 16; TEMP 36.8; O2SAT 97
[2025-05-20] MEDS: HYDROcodone-acetaminophen 5-325 mg Tablet PO (01:25)
[2025-05-20 05:00] VITALS: BP 141/73; PULSE 80
[2025-05-20] MEDS: PRENATAL VIT NO.130/IRON/FOLIC 1 EACH TABLET PO (05:01)
[2025-05-20 05:02] VITALS: BP 141/73; PULSE 80; RESP 16; TEMP 36.7; O2SAT 98
[2025-05-20 07:56] VITALS: BP 149/76; PULSE 84
[2025-05-20 08:01] VITALS: TEMP 36.6
--- NOTE | 2025-05-20 08:11 | PM.OBGYDC ---
Discharge Providers FINANCIAL SERVICE PROFESSIONAL Date of Admission: 05/17/25 06:44 Date of Discharge: 05/20/25 Attending Provider at Admission: Saundra Camara MD Attending Provider at Discharge: Saundra Camara MD Primary Care Provider: Slim Salas MD Diagnoses at Discharge Discharge Diagnosis 1. delivery indicated due to breech presentation: 2. Morbid obesity with BMI of 50.0-59.9, adult: 3. 37 weeks gestation of : 4. Amniotic fluid leaking: Reason for Visit Reason for Visit: Poss SROM Hospital Course Hospital Course Admitted due to SROM. She was admitted with reported vertex presentation. Progressed to 5-6 cm and found to have malpresentation at that time. She was deliveered by [facility]. She progressed in diet, ambulation and pain control. See chart for details. Discharged home. Information Peripartum Data: Infant Delivery Method: Physical Exam Narrative: Appearance: grossly normal Attitude: calm and engaged, appropriate eye contact Const: no acute distress, oriented x3 cooperative Chest: Symmetrical chest wall rise Resp: normal respiratory effort, clear to auscultation bilaterally Cardio: regular rate and regular rhythm GI: Soft to palpation, incision C/D/I Non Tender, no Guarding Extremity: normal inspection, + pedal edema Neuro: oriented x3 and moves all extremities, speech normal Psych: mental status grossly normal, and Normal thought process present Skin: no rashes or lesions noted Urinary Catheter Management: Levine Latex: Cath Placed During This Visit: yes, but has since been removed by the nurse Reason for Continuing Indwelling Catheter: Decision to DC Catheter Urinary Catheter Date of Insertion: 05/17/25 Urinary Catheter Time of Insertion: 13:34 Date Urinary Catheter Removed: 05/18/25 Time Urinary Catheter Discontinued: 03:18 History History History 1 Term Miscarriages/Ectopic Living Children Discharge Data Studies Completed and Pending Laboratory Results WBC 9.81 10^3/uL (3.29-11.43) 05/18/25 05:01 RBC 3.63 10^6/uL (3.85-5.65) L 05/18/25 05:01 Hgb 9.80 g/dL (11.27-16.99) L 05/18/25 05:01 Hct 31.0 % (36-47) L 05/18/25 05:01 MCV 85.4 fl (85-98) 05/18/25 05:01 MCH 27.0 pg (27-33) 05/18/25 05:01 MCHC 31.6 g/dL (30-55) 05/18/25 05:01 RDW 16.5 % (12.1-15.1) H 05/18/25 05:01 Plt Count 231 10^3/cmm (157-399) 05/18/25 05:01 MPV 11.2 fL (7.4-10.4) H 05/18/25 05:01 Neut % (Auto) 71.8 % 05/17/25 07:00 Lymph % (Auto) 20.0 % 05/17/25 07:00 [place] % (Auto) 5.7 % 05/17/25 07:00 Eos % (Auto) 1.6 % 05/17/25 07:00 Baso % (Auto) 0.2 % 05/17/25 07:00 Neut # (Auto) 5.92 10^3/uL (1.8-7.7) 05/17/25 07:00 Lymph # (Auto) 1.7 10^3/uL (0.8-4.8) 05/17/25 07:00 [place] # (Auto) 0.5 10^3/uL (0.2-0.9) 05/17/25 07:00 Eos # (Auto) 0.1 10^3/uL (0.0-0.8) 05/17/25 07:00 Baso # (Auto) 0.0 10^3/uL (0.0-0.1) 05/17/25 07:00 Nucleated RBC % (auto) 0 % 05/17/25 07:00 Nucleated RBCs # 0.0 /100WBC 05/17/25 07:00 Fluid pH (paper) Positive H 05/17/25 06:13 Blood Type O Positive 05/17/25 07:00 Rho(D) Type Rh positive 05/17/25 07:00 Antibody Screen Negative 05/17/25 07:00 Vitals Last Vital Signs Temp 97.8 F 05/20/25 08:01 Pulse 84 05/20/25 07:56 Resp 16 05/20/25 05:02 BP 149/76 05/20/25 07:56 Pulse Ox 98 05/20/25 05:02 O2 Del Method Room Air 05/20/25 05:02 Results Labs OB ([facility]): Obstetrics US 05/01/25 Blood Type O Positive 05/17/25 Antibody Screen Negative 05/17/25 Hct, (36-47) 31.0 % L 05/18/25 Hgb, (11.27-16.99) 9.80 g/dL L 05/18/25 Rho(D) Type Rh positive 05/17/25 Plt Count, (157-399) 231 10^3/cmm 05/18/25 Hep Bs Antigen, (Nonreactive) Non-reactive 11/05/24 Hepatitis C Antibody, (Nonreactive) Non-reactive 11/05/24 Rubella IgG Antibody, (0.0-10.0) 82.9 IU/mL H 11/05/24 RPR, (Nonreactive) Nonreactive 11/05/24 HIV 1&2 Ab & HIV 1 Ag, (Non-Reactiv) Non-reactive 11/05/24 TSH, (0.27-4.20) 2.43 uIU/mL 04/02/25 Free T4, (0.82-1.77) 1.09 ng/dL 04/15/24 T. vaginalis Amp RNA, (NOT DETECTED) Not detected 10/24/24 Glucose 1 Hr 50 gm, (85-140) 153 mg/dL H 03/09/25 Gest Glucose Tolerance mg/dL 03/13/25 Hemoglobin A1c, (4.0-6.0) 5.5 % 12/17/24 Uric Acid, (2.4-5.7) 6.1 mg/dL H 05/07/25 Ser , Semi-Qnt 34414.00 mIU/mL 12/27/24 HCG, Qual, (Negative) Positive H 10/28/24 Urine Opiates Screen, (Negative) Negative ng/mL 11/05/24 Ur Barbiturates Screen, (Negative) Negative ng/mL 11/05/24 Ur Phencyclidine Scrn, (Negative) Negative ng/mL 11/05/24 Ur Amphetamines Screen, (Negative) Negative ng/mL 11/05/24 U Benzodiazepines Scrn, (Negative) Negative ng/mL 11/05/24 Urine Cocaine Screen, (Negative) Negative ng/mL 11/05/24 U Marijuana (THC) Screen, (Negative) Negative ng/mL 11/05/24 Micro Urine Specimen 05/07/25 Pap Smear Interpret See comment 01/04/24 Discharge Plan Discharge Patient Disposition: Home Condition: Stable Prescriptions: New ibuprofen 800 mg Tablet 800 mg PO TID Qty: 0 0RF hydrocodone-acetaminophen 5-325 mg Tablet 1 tab PO Q4H PRN (Reason: Moderate To Severe Pain) Qty: 20 0RF Continued L.crispat,gasseri,duran,rhamn 12 billion cell tablet,chewable 1 tab PO 1XD magnesium hydroxide [Milk of Magnesia] 400 mg/5 mL suspension 5 ml PO DAILY PRN (Reason: Heartburn) docusate sodium [Colace] 100 mg capsule 100 mg PO DAILY PNV no.95-ferrous fumarate-FA [] 28 mg iron- 800 mcg Tablet 1 tab PO DAILY Discontinued clobetasol 0.05 % ointment 1 applic topical BID PRN (Reason: Rash) Rx Instructions: to hands and ankles BID x 2 weeks alternating with triamcinolone ferrous sulfate 325 mg (65 mg iron) tablet 325 mg PO DAILY Discharge Order = DC NOW: Discharge Order (Routine); Ordered 05/20/25 Ordered By: Saundra Camara Referrals: Saundra Camara MD [Physician, FINANCIAL SERVICE PROFESSIONAL] - 05/25/25 10:00 am Discharge Diet: Regular Discharge Activity: Increase activity as tolerated Patient Instructions: Depression (DC), Bleeding (DC), Preeclampsia and Eclampsia After Delivery (GEN), Hemorrhage (DC), OB [facility], OB Discharge Report, OB Food/Drug Interaction Guide, Opioid Safety, OB Home Care, OB Proud Parent Packet, Patient Portal & Nura Instructions Activity Restrictions/Additional Instructions: Pelvic rest Discharge Attestations FIN[employer]CIAL SERVICE PROFESSIONAL Time Spent in Discharge Care*: less than 30 min Coding Level of Care Code Acute Code for Chg Fwd Diagnoses delivery indicated due to breech presentation O32.1XX0 Morbid obesity with BMI of 50.0-59.9, adult E66.01; Z68.43 37 weeks gestation of Z3A.37 Amniotic fluid leaking O42.90
[2025-05-20 11:41] VITALS: BP 143/70; PULSE 82; RESP 16; TEMP 36.6; O2SAT 99
== END 2025-05-20 11:42 | disposition home or self-care (01) | DRG 788 ==
LOC: OPOB 06:45 → OBGYN 06:45
PROVIDERS: Admitting Provider Obstetrics & Gynecology; PCP Family Medicine; Visit Provider Obstetrics & Gynecology
PROC: 10D00Z1 Extraction of Products of Conception, Low, Open Approach (ICD-10-PCS; CPT 59514; principal; 2025-05-17 14:15)
DX: O32.1XX0 Maternal care for breech presentation, not applicable or unspecified (principal); O99.284 Endocrine, nutritional and metabolic diseases complicating childbirth; E28.2 Polycystic ovarian syndrome; O99.214 Obesity complicating childbirth; E66.01 Morbid (severe) obesity due to excess calories; O77.0 Labor and delivery complicated by meconium in amniotic fluid; Z3A.37 37 weeks gestation of pregnancy; Z37.0 Single live birth
CPT/HCPCS: 36415; 51702; 59409; 83986; 85025; 85027; 86850; 86900; 96372; 96374; J0690; J1650; J1885; J2274; J2405; J2590; J2765; J3010; J3490; J7030; J7121; J9999

== ENCOUNTER 2025-05-30 18:18 | Emergency (ER) | payer OTHER, BC, SELFPAY ==
--- OUTSIDE RECORDS SUMMARY | 2025-05-30 18:24 | XMS_ITS | Data Portability ---
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 Lab urinalysis, dipstick [address] ([facility]), [address] [place] [address], [address], 17:29:21 test, urine [address] ([facility]), [address] [place], [address], 5 18:55:12 culture, urine 2024 025 [employer] [facility], [address] [place] [address], [address] [place], [address], 00:50:42 urinalysis, dipstick 2023 024 [email or web address] [facility] ([facility]), [address] [place], [address], 4 16:00:30 culture, urine 2023 024 [employer] [facility], [address] [place], [address], 4 16:26:07 SARS CoV 2 RNA, QL, nasopharynx 2022 023 [email or web address] [facility] ([facility]), [address] [place], [address], 3 11:52:23 Referral None recorded. Procedures None recorded. Surgeries None recorded. Imaging XR, kidney + ureter + bladder 2024 025 MALLY Not available 5 09:18:26 Medication Orders fluconazole 150 mg tablet [email or web address] [facility], [address], [place], [address], 5 16:45:38 Patient TargetsNo targets recorded. Patient InstructionsNo instructions recorded. Reason for Referral None Reported. Results Created Date Observation Date Name Description Value Unit Range Abnormal Flag Note LastModifiedBy Organization Detail LastModifiedTime 10/07/1910/05/2024 CULTU RE, URINE , ROUTI NE culture, urine, routine SEE NOTE CULTU RE, URINE , ROUTI NE Micro Numbe r: [id number] Test Statu s: Final Speci men Sourc e: Not given Speci men Quali ty: Adequ ate Resul t: Mixed genit al sergio isola nicole. These super ficia l bacte bettina are not indic ative of a urina ry tract infec tion. No furth er organ ism ident ifica tion is warra nted on this speci men. If clini venus indic ated, recol lect clean -catc h, [...] area of inter est: 866-M YQUES T ([phone]) NO COLLE CTION DATE RECEI ROC. WE HAVE USED THE DATE THE SPECI MEN WAS RECEI ROC BY THIS LABOR ATORY THE COLLE CTION DATE. IF THIS IS INCOR RECT, PLEAS E CONTA CT CLIEN T [facility]I [place]. PHONE NUMBE R: [phone] Not Available [facility] [address] [place], [address], 10/06/2024 00:50:42 09/23/19 23 09/22/2022 SARS CoV 2 RNA, QL, nasop haryn x COVID positi ve Not Available [facility] ([facility]) [address] [place] [address], [address], 09/22/2022 11:37:19 07/08/19 24 07/08/2023 urina lysis , dipst ick Leukocytes Negati ve Not Available [facility] ([facility]) [address] [place], [address], 07/08/2023 15:10:43 07/08/19 24 07/08/2023 urina lysis , dipst ick Nitrite negati ve Not Available [facility] ([facility]) [address] [place], [address], 07/08/2023 15:10:43 07/08/19 24 07/08/2023 urina lysis , dipst ick Urobilinogen .2 Not Available [facility] ([facility]) [address] [place], [address], 07/08/2023 15:10:43 07/08/19 24 07/08/2023 urina lysis , dipst ick Protein Negati ve Not Available [facility] ([facility]) [address] [place], [address], 07/08/2023 15:10:43 07/08/19 24 07/08/2023 urina lysis , dipst ick pH 6.0 Not Available [facility] ([facility]) [address] [place], [address], 07/08/2023 15:10:43 07/08/19 24 07/08/2023 urina lysis , dipst ick Blood Negati ve Not Available [facility] ([facility]) [address] [place], [address], 07/08/2023 15:10:43 07/08/19 24 07/08/2023 urina lysis , dipst ick Specific Sayre 1.030 Not Available [facility] ( [facility]) [address] [place], [address], 07/08/2023 15:10:43 07/08/19 24 07/08/2023 urina lysis , dipst ick Ketone Negati ve Not Available [facility] ([facility]) [address] [place], [address], 07/08/2023 15:10:43 07/08/19 24 07/08/2023 urina lysis , dipst ick Bilirubin Negati ve Not Available [facility] ([facility]) [address] [place], [address], 07/08/2023 15:10:43 07/08/19 24 07/08/2023 urina lysis , dipst ick Glucose Negati ve Not Available [facility] ([facility]) [address] [place], [address], 07/08/2023 15:10:43 07/08/19 24 07/08/2023 urina lysis , dipst ick Appearance Clear Not Available [facility] ([facility]) [address] [place], [address], 07/08/2023 15:10:43 07/08/19 24 07/08/2023 urina lysis , dipst ick Color Dark Yellow Not Available [facility] ([facility]) [address] [place], [address], 07/08/2023 15:10:43 10/04/19 25 10/03/2024 pregn luana test, urine HCG positi ve Not Available [facility] ([facility]) [address] [place], [address], 10/03/2024 17:46:13 10/04/19 25 10/03/2024 urina lysis , dipst ick Leukocytes Trace Not Available [facility] ([facility]) [address] [place], [address], 10/03/2024 17:00:45 10/04/19 25 10/03/2024 urina lysis , dipst ick Nitrite negati ve Not Available [facility] ([facility]) [address] [place], [address], 10/03/2024 17:00:45 10/04/19 25 10/03/2024 urina lysis , dipst ick Urobilinogen .2 Not Available [facility] ([facility]) [address] [place], [address], 10/03/2024 17:00:45 10/04/19 25 10/03/2024 urina lysis , dipst ick Protein Negati ve Not Available [facility] ([facility]) [address] [place], [address], 10/03/2024 17:00:45 10/04/19 25 10/03/2024 urina lysis , dipst ick pH 7.0 Not Available [facility] ([facility]) [address] [place], [address], 10/03/2024 17:00:45 10/04/19 25 10/03/2024 urina lysis , dipst ick Blood Negati ve Not Available [facility] ([facility]) [address] [place], [address], 10/03/2024 17:00:45 10/04/19 25 10/03/2024 urina lysis , dipst ick Specific Sayre 1.020 Not Available [facility] ( [facility]) [address] [place], [address], 10/03/2024 17:00:45 10/04/19 25 10/03/2024 urina lysis , dipst ick Ketone Negati ve Not Available [facility] ([facility]) [address] [place], [address], 10/03/2024 17:00:45 10/04/19 25 10/03/2024 urina lysis , dipst ick Bilirubin Negati ve Not Available [facility] ([facility]) [address] [place], [address], 10/03/2024 17:00:45 10/04/19 25 10/03/2024 urina lysis , dipst ick Glucose Negati ve Not Available [facility] ([facility]) [address] [place], [address], 10/03/2024 17:00:45 10/04/19 25 10/03/2024 urina lysis , dipst ick Appearance Clear Not Available [facility] ([facility]) [address] [place], [address], 10/03/2024 17:00:45 10/04/19 25 10/03/2024 urina lysis , dipst ick Color Yellow Not Available [facility] ([facility]) [address] [place], [address], 10/03/2024 17:00:45 10/07/19 25 10/03/2024 XR, kidne y + urete r + bladd er No observ ation record ed. [email or web address] [facility] [address], [address], 10/06/2024 11:23:01 10/07/19 25 10/03/2024 XR, kidne y + urete r + bladd er No observ ation record ed. [email or web address] [facility] [address] [place], [address], 10/06/2024 11:23:02 10/07/19 25 10/03/2024 XR, kidne y + urete r + bladd er No observ ation record ed. [email or web address] Not Available 10/07 09:31:42 Result Notes None recorded. Medical Equipment None Reported. Allergies Allergen ID Allergen Name Allergen Category Reaction Reaction Severity Criticality Documentation Date Start Date Code Code System Note Provider Name and Address Organization Details Recorded Time 24892 cayenne pepper fruits food Not available Not available Not available 07/08/2023 Corinne vallejo CO Ora [facility] 4 15:34:39 33239 bagley pepper food Not available Not available Not available 07/08/2023 Corinne vallejo CO Ora [facility] 4 15:34:44 Medications Name Sig Start Date [...] mass index (BMI) Body weight Oxygen saturation Heart rate Respiratory rate Body temperature Systolic And Diastolic Provider Name and Address Organization Details Last Updated DateTime 4 167.64 cm 43.6 kg/m2 397555. 94 g 100 % 85 /min 16 /min 97.1 [degF] 112/80 mm[Hg] Corinne Gutierrez [facility] 4 15:34:17 Date Recorded Body height Body mass index (BMI) Body weight Oxygen saturation Heart rate Respiratory rate Body temperature Provider Name and Address Organization Details Last Updated DateTime 3 167.64 cm 51.6 kg/m2 469320. 56 g 98 % 87 /min 19 /min 98.3 [degF] SOREN NUR [facility] 3 11:34:41 Date Recorded Body height Body mass index (BMI) Body weight Oxygen saturation Heart rate Body temperature Respiratory rate Systolic And Diastolic Provider Name and Address Organization Details Last Updated DateTime 5 167.64 cm 54 kg/m2 812515. 65 g 98 % 80 /min 98.2 [degF] 17 /min 116/80 mm[Hg] JEB HUNG [facility] 5 16:45:06 Social History None recorded. Functional Status None recorded. Mental Status None recorded. Family History Nothing Reported Notes:Father: Diabetes Ambreeni tus Mother: Liver disease Medical History No medical history recorded. Gynecological HistoryNo gynecological history recorded. Obstetrics History GPAL:G 0 P 0 0 0 0 Immunizations Vaccine Type Date Status Note Provider Nam e and Address Organization Details Recorded Time Hep B, unspecified formulation 4 completed Not Available [facility] 10/03/2024 16:39:04 OPV, trivalent 4 completed Not Available [facility] 10/03/2024 16:39:04 DTP-Hib 4 completed Not Available [facility] 10/03/2024 16:39:04 Hep B, unspecified formulation 5 completed Not Available [facility] 10/03/2024 16:39:04 OPV, trivalent 5 completed Not Available [facility] 10/03/2024 16:39:04 DTP-Hib 5 completed Not Available [facility] 10/03/2024 16:39:04 MMR 6 completed Not Available [facility] 10/03/2024 16:39:04 Hep B, unspecified formulation 6 completed Not Available [facility] 10/03/2024 16:39:04 OPV, trivalent 6 completed Not Available [facility] 10/03/2024 16:39:04 DTP-Hib 6 completed Not Available [facility] 10/03/2024 16:39:04 DTaP 7 completed Not Available [facility] 10/03/2024 16:39:04 DTaP 9 completed Not Available [facility] 10/03/2024 16:39:04 MMR 9 completed Not Available [facility] 10/03/2024 16:39:04 Hib (PRP-T) 9 completed Not Available [facility] 10/03/2024 16:39:04 OPV, trivalent 9 completed Not Available [facility] 10/03/2024 16:39:04 varicella 9 completed Not Available [facility] 10/03/2024 16:39:04 COVID-19, mRNA, LNP-S, PF, 100 mcg/0.5mL dose or 50 mcg/0.25mL dose 1 completed Not Available [facility] 10/03/2024 16:39:04 Influenza, split virus, trivalent, preservative 1 completed Not Available [facility] 10/03/2024 16:39:04 Influenza, split virus, trivalent, preservative 3 completed Not Available [facility] 10/03/2024 16:39:04 Past Encounters Encounter ID Performer Location Encounter Start Date Encounter Closed Date Diagnosis/Indication Diagnosis SNOMED-CT Code Diagnosis ICD10 Code Diagnosis IMO Codes Diagnosis Note [id number] JUAN BYRNE PA-C [facility] ([facility]) [address] [place] [address] 09/22/2022 11:22:05 09/22/2022 11:52:46 Cough 69752549 R05.9 COVID-19 887296176 U07.1 Quarantine for 5 days then mask x 5d. RTC or to ER if any s/s of respirator y distress. [id number] GLORIA ALDANA [facility] ([facility]) [address] [place] [address] 07/08/2023 15:04:46 07/08/2023 15:52:28 Dysuria 27604727 R30.0 Urine negative. Will send for culture. Candidiasis of vagina 72 021399 B37.31 [id number] GLORIA ALDANA [facility] ([facility]) [address] [place] [phone] 10/03/2024 16:37:10 10/04/2024 11:59:44 Left lower quadrant pain 658054171 R10.32 0228849 Negative urine. Unable to reproduce abd pain with palpation. Follow up with PCP next week. X ray done. Patient then stated that she had missed last period. Urine test positive. If any worsening abdominal pain, vaginal bleeding, present to ER for further evaluation and treatment. Patient to call PCP Dr Salas Sunday to schedule follow up appt. Allergic rhinitis 110201 04 J30.9 [id number] May use otc meds like zyrtec and [...] ID Guarantor Name 10/03/2024 2 [employer] Chedangelon Che Echeverrias [id number] Cheyann D 10/06/2024 1 [facility] [id number] Cheyann D York [id number] Cheyann D York 10/03/2024 2 [facility] [facility] Cheyann D Gomez [id number] Cheyann D 10/03/2024 2 [facility] MEDICARE ADVANTAGE [place] Chedangelon D Gomez [id number] Cheyann D 10/03/2024 1 [employer] [facility] (PPO) Cheyann D Gomez [id number] Cheyann D 10/03/2024 1 [employer] [id number] Cheyann D Gomez [id number] Cheyann D York 10/03/2024 1 [employer] [facility] (PPO) Cheyann D [place] [id number] Cheyann D 10/03/2024 2 [place] [id number] Manuel York [id number] Cheyann D Notes Date Note Type Note Provider Name and Address Organization Details Recorded Time 09/22/2022 text/html COVID-19 Symptom s October 2019Reported by PatientUpper Respiratory SymptomsFor quality, patient reportsdry cough. For associated symptoms, patient reportschest pain,fatigue, andbody aches. For covid-19 signs and symptoms, patient reportscough same,fever same,shortness of breath same,headache same,sore throat improving,diarrhea same, andcongestion same. For contacts and exposure, patient reportsclose contact with a confirmed or suspected case of covid-19. For severity, patient reportsno pain. For onset/timing, patient reportsdate of symptoms onset: (5).ROS as noted in the HPI JUAN BYRNE PA-C [address] [place] [address], [phone], [facility] 09/22/2022 11:52:35 07/08/2023 text/html LUTSReported by PatientHPIFor associated symptoms, patient reportspain during urination,urine odor,feelings of urgency, andabnormal urine streambut reportsno fever. For location, patient reportsurethraandbladd er. For quality, patient reportsachinganddull. For severity, patient reportsworsening,mild, andmoderate. For duration, patient reports3 days. For timing, patient reportsconstantandsudd en. For context, patient reportsnot sexually active. For aggravating factors, patient reportsnone. For alleviating factors, (cranberry pills).Patient also complains of vaginal discharge and itching since . Has used AZO UTI strips which she states was positive for leukocytes at home.ROS as noted in the HPI GLORIA ALDANA [address] [place] [address], [phone], [facility] 07/08/2023 16:00:44 10/03/2024 text/html ROS as noted in the HPI Patient c/o LLQ abdominal pain. Has been [...] the AM. Denies any fever. GLORIA ALDANA [address] [place], [phone], [facility] 10/03/2024 19:00:16 OBGyn Episode No OBEpisode recorded.
[2025-05-30 18:36] VITALS: BP 152/77; PULSE 88; RESP 18; TEMP 36.9; O2SAT 100; BMI 49.2
--- NOTE | 2025-05-30 19:30 | USR_ITS ---
PROCEDURE INFORMATION: Exam: US Pelvis, Transvaginal, Non-Obstetric Exam date and time: 05/30/2025 8:29 PM Age: 30 years old Clinical indication: Pelvic pain; Prior surgery; Surgery date: <1 month; Surgery type: C section two weeks ago; Additional info: Post c section pelvic pain, hemorrhage. Learning And Development Officer noted that the patient was bleeding during the exam. TECHNIQUE: Imaging protocol: Real-time transvaginal pelvic (non-obstetric) ultrasound with image documentation. Transvaginal imaging was used for better evaluation of the endometrium, adnexa, and/or cervix. COMPARISON: [place] [id number] 05/01/2025 4:08 PM FINDINGS: Uterus: Complex nonvascular heterogeneously echogenice tissue noted within the uterus. Right ovary/adnexa: Normal. No mass. Normal ovarian blood flow on color Doppler. Left ovary/adnexa: The left ovary was not seen on this exam. Urinary bladder: Not included. Intraperitoneal space: Trace fluid in the cul-de-sac. US/US transvaginal [id number] IMPRESSION: Findings most consistent with retained products of conception.
[2025-05-30 20:06] LABS: Hematocrit 38.1 % (36-47); Hemoglobin 11.50 g/dL (11.27-16.99); Mean Corpuscular HGB Conc 30.2 g/dL (30-55); Mean Corpuscular Hemoglobin 25.7 pg (27-33); Mean Corpuscular Volume 85.2 fl (85-98); Nucleated Red Blood Cells % 0 %; Platelet Count 407 10^3/cmm (157-399); Red Blood Count 4.47 10^6/uL (3.85-5.65); White Blood Count 8.50 10^3/uL (3.29-11.43)
[2025-05-30 20:08] LABS: Glucose Urine UA Negative (Normal); Nitrate Urine Negative (Negative); Specific Gravity, Urine 1.026 (1.005-1.030)
[2025-05-30] MEDS: ondansetron 2 mg/ML SDV 2 mL 4 MG IVP (20:11)
[2025-05-30] MEDS: morphine 4 mg/mL SDV 1 mL IVP (20:11)
[2025-05-30 20:14] LABS: Add Urine Microscopic? YES
[2025-05-30 20:22] VITALS: BP 144/68; PULSE 87; RESP 16; O2SAT 96
[2025-05-30 21:15] LABS: Alanine Aminotransferase 20 U/L (0-33); Albumin Level 4.2 g/dL (3.5-5.2); Alkaline Phosphatase 97 U/L (35-105); Anion Gap 18.0 (5-19); Aspartate Amino Transferase 17 U/L (0-32); Blood Urea Nitrogen 14 mg/dL (6-20); Calcium 9.5 mg/dL (8.5-10.5); Carbon Dioxide 24 mmol/L (22-29); Chloride 103 mmol/L (98-107); Globulin 3.7 g/dL (1.3-4.6); Glucose 87 mg/dL (65-115); Osmolality Calculated 292 mOsm/kg (285-295); Potassium 4.0 mmol/L (3.5-5.1); Sodium 141 mmol/L (136-145); Total Protein 7.9 g/dL (6.6-8.7)
[2025-05-30 21:30] VITALS: BP 143/83; PULSE 85; O2SAT 92
--- NOTE | 2025-05-30 22:24 | ED_ITS ---
HPI - Female Genitourinary 2 General: Chief complaint: Vaginal Bleeding Stated complaint: 2 wk post ,sudden/heavy bleeding clots Time Seen by Provider: 05/30/25 18:54 History of Present Illness: Patient is a 30-year-old female who underwent section 2 weeks ago. She reports that her bleeding had initially decreased to minimal levels but began to increase again yesterday, with further increase today. She describes passing several large blood clots, some approaching but not quite golf ball-sized. The patient has experienced chills since yesterday without documented fever. She complains of vaginal and pelvic pain which she describes as being in her 'core.' She denies back pain. Patient had a postoperative check on Sunday (5 days ago) where her incision was noted to be healing appropriately, though she reports occasional stinging at the incision site. She has a history of PCOS with typically heavy menstrual periods. Patient is attempting to breastfeed. She is not currently on any hormonal medications. Her section was performed by Dr. Camara, and her primary care is with Dr. Terrell. This is her first . Related Data Home Medications ?Medication ?Instructions ?Recorded ?Confirmed vit no.95-ferrous 1 tab PO DAILY 11/07/2202/09 fumarate 28 mg-folic acid 800 mcg tablet () docusate sodium 100 mg capsule 100 mg PO DAILY 5 05/25/25 (Colace) magnesium hydroxide 400 mg/5 mL 5 ml PO DAILY PRN Hear tburn 12/17/24 05/25/25 oral suspension (Milk of Magnesia) L. crispatus, gasseri, jensenii, 1 tab PO 1XD 03/09/25 05/25/25 rhamnosus 12 billion cell chew tablet Previous Rx's ?Medication ?Instructions ?Recorded ibuprofen 800 mg tablet 800 mg PO TID #0 tabs hydrocodone 5 mg-acetaminophen 325 1 tab PO Q6H PRN Mo derate To 05/26/25 mg tablet Severe Pain 1 week #20 tabs Allergies Allergy/AdvReac Type Severity Reaction Status Date / Time pepper (genus Capsicum) Allergy Severe hives Verified 05/30/25 18:42 PFSH ED 2 PFSH: Medical History delivery indicated due to breech presentation Hidradenitis suppurativa On topical clindamycin---follows up with Dr. Wallace PCOS (polycystic ovarian syndrome) Diagnosed with PCOS at the age of 17 when she had irregular cycles. States that she had a hemoglobin A1c in 2019 that was 5.3. Surgical History (Updated 05/17/25 @ 08:55 by Saundra Camara MD) H/O excision of mass (01/17/22) left chest wall S/P adenoidectomy At the age of 6 Family History Grandfather Heart disease maternal Diabetes paternal and maternal Grandmother Diabetes maternal Heart disease paternal Stroke paternal Father Diabetes Brother Thyroid disease Mother Hypertension Denies family history of Colon cancer Ovarian cancer Hyperlipidemia Breast cancer Uterine cancer Social History Smoking and tobacco/nicotine status: never used tobacco/nicotine Physical Exam 2 Const: COMMON NORMALS: no acute distress GENERAL APPEARANCE: cooperative; not ill appearing and not frail appearing HENMT: COMMON NORMALS: normocephalic, atraumatic and Normal external nose present HEAD & SCALP: normocephalic and atraumatic FACE & SINUS: normal facial exam and face symmetric NOSE: Normal external nose present Eye: COMMON NORMALS: Equal, round and reactive pupils present and EOMs intact bilaterally PUPIL: Yes Equal, round and reactive pupils present Neck/C-Spine: GENERAL: Yes trachea midline Chest: CHEST: Yes Symmetrical chest wall rise Resp: COMMON NORMALS: normal respiratory effort, No retractions, No use of accessory muscles and clear to auscultation bilaterally AUSCULTATION: clear to auscultation bilaterally Cardio: COMMON NORMALS: regular rate and regular rhythm RATE: regular rate RHYTHM: regular rhythm GI: COMMON NORMALS: Normal to inspection, nondistended, normoactive bowel sounds present Extremity: COMMON NORMALS: no pedal edema Neuro: RONAN COMA SCALE: document GCS findings [place] coma scale eye opening: Spontaneous [place] coma scale verbal response: Orientated [place] coma scale motor response: Obey commands [place] coma scale total score: 15 S ENSORY EXAM: Yes extremities (intact) Psych: COMMON NORMALS: speech normal SPEECH: Yes normal speech Course 2 Vital Signs: Vital signs: Vital Signs Temperature 98.4 F 05/30/25 18:36 Pulse Rate 85 05/30/25 21:30 Respiratory Rate 16 05/30/25 20:22 Blood Pressure 143/83 05/30/25 21:30 Pulse Oximetry 92 05/30/25 21:30 Oxygen Delivery Me thod Room Air 05/30/25 21:30 MDM - Female Medical Decision Making 30-year-old female with vaginal bleeding post 2 weeks ago. She is afebrile. No leukocytosis. Hemoglobin is up to 11.5. Other laboratory values are not remarkable. Pelvic ultrasound shows complex nonvascular heterogeneity with tissue. Findings felt to be consistent with potential retained products. Spoke with obstetrics/gynecology. He notes that on any ultrasound at 2 weeks post these findings are likely, and much less likely retained products, as the uterus would have been inspected at the time of surgery. Without fever, or significant blood loss, recommendations are IM [place], discharge home. He will call the patient tomorrow to check on her from home, and get her in for follow-up appointment. For continued brisk bleeding she is to return for repeat CBC. She is stable for discharge currently. Lab Data 05/30/25 19:39 05/30/25 19:39 Radiology Impressions Transvaginal US 05/30/25 19:30 IMPRESSION: Findings most consistent with retained products of conception. Laboratory Results WBC 8.50 10^3/uL (3.29-11.43) 05/30/25 19:39 RBC 4.47 10^6/uL (3.85-5.65) 05/30/25 19:39 Hgb 11.50 g/dL (11.27-16.99) 05/30/25 19:39 Hct 38.1 % (36-47) 05/30/25 19:39 MCV 85.2 fl (85-98) 05/30/25 19:39 MCH 25.7 pg (27-33) L 05/30/25 19:39 MCHC 30.2 g/dL (30-55) 05/30/25 19:39 RDW 15.6 % (12.1-15.1) H 05/30/25 19:39 Plt Count 407 10^3/cmm (157-399) H 05/30/25 19:39 MPV 9.4 fL (7.4-10.4) 05/30/25 19:39 Neut % (Auto) 73.7 % 05/30/25 19:39 Lymph % (Auto) 16.2 % 05/30/25 19:39 [place] % (Auto) 6.4 % 05/30/25 19:39 Eos % (Auto) 2.5 % 05/30/25 19:39 Baso % (Auto) 0.7 % 05/30/25 19:39 Neut # (Auto) 6.27 10^3/uL (1.8-7.7) 05/30/25 19:39 Lymph # (Auto) 1.4 10^3/uL (0.8-4.8) 05/30/25 19:39 [place] # (Auto) 0.5 10^3/uL (0.2-0.9) 05/30/25 19:39 Eos # (Auto) 0.2 10^3/uL (0.0-0.8) 05/30/25 19:39 Baso # (Auto) 0.1 10^3/uL (0.0-0.1) 05/30/25 19:39 Nucleated RBC % (auto) 0 % 05/30/25 19:39 Nucleated RBCs # 0.0 /100WBC 05/30/25 19:39 Sodium 141 mmol/L (136-145) 05/30/25 19:39 Potassium 4.0 mmol/L (3.5-5.1) 05/30/25 19:39 Chloride 103 mmol/L (98-107) 05/30/25 19:39 Carbon Dioxide 24 mmol/L (22-29) 05/30/25 19:39 Anion Gap 18.0 (5-19) 05/30/25 19:39 BUN 14 mg/dL (6-20) 05/30/25 19:39 Creatinine 0.7 mg/dL (0.5-0.9) 05/30/25 19:39 GFR Calculation 97.6 mL/min (90-130) 05/30/25 19:39 Glucose 87 mg/dL (65-115) 05/30/25 19:39 Calculated Osmolality 292 mOsm/kg (285-295) 05/30/25 19:39 Calcium 9.5 mg/dL (8.5-10.5) 05/30/25 19:39 Total Bilirubin 0.3 mg/dL (0.15-1.2) 05/30/25 19:39 AST 17 U/L (0-32) 05/30/25 19:39 ALT 20 U/L (0-33) 05/30/25 19:39 Alkaline Phosphatase 97 U/L (35-105) 05/30/25 19:39 Total Protein 7.9 g/dL (6.6-8.7) 05/30/25 19:39 Albumin 4.2 g/dL (3.5-5.2) 05/30/25 19:39 Globulin 3.7 g/dL (1.3-4.6) 05/30/25 19:39 Ser , Semi-Qnt 18.81 mIU/mL 05/30/25 19:39 Urine Color Red (Yellow) A 05/30/25 20:04 Urine Appearance Cloudy (CLEAR) A 05/30/25 20: Urine pH 5.0 (5-7) 05/30/25 20: Ur Specific [place] 1.026 (1.005-1.030) 05/30/25 20:04 Urine Protein 2+ (Negative) A 05/30/25 20: Urine Glucose (UA) Negative (Normal) 05/30/25 20: Urine Ketones Negative (Negative) 05/30/25 20: Urine Blood 3+ (Negative) A 05/30/25 20: Urine Nitrate Negative (Negative) 05/30/25 20: Urine Bilirubin Negative (Negative) 05/30/25 20: Urine Urobilinogen 1.0 mg/dL (Negative) 05/30/25 20:04 Ur Leukocyte Esterase 2+ (Negative) A 05/30/25 20:04 Urine RBC >100 /hpf (0-2) H 05/30/25 20:04 Urine WBC >100 /hpf (0-5) H 05/30/25 20:04 Ur Squamous Epith Cells 0-4 /hpf (0-5) H 05/30/25 20:04 Urine Bacteria None /hpf (NONE) 05/30/25 20:04 Hyaline Casts 3.71 /lpf 05/30/25 20:04 All radiology interpretation(s) finalized by discharge Discharge Plan Discharge Patient Disposition: Home Clinical Impression: hemorrhage of vagina Condition: Stable Prescriptions: No Action KevonEliucelso montiel,duran,rhamn 12 billion cell tablet,chewable 1 tab PO 1XD magnesium hydroxide [Milk of Magnesia] 400 mg/5 mL suspension 5 ml PO DAILY PRN (Reason: Heartburn) docusate sodium [Colace] 100 mg capsule 100 mg PO DAILY hydrocodone-acetaminophen 5-325 mg tablet 1 tab PO Q6H PRN (Reason: Moderate To Severe Pain) 7 Days Qty: 20 0RF PNV no.95-ferrous fumarate-FA [] 28 mg iron- 800 mcg Tablet 1 tab PO DAILY ibuprofen 800 mg Tablet 800 mg PO TID Qty: 0 0RF Discharge Orders: Discharge ED (Routine); Ordered 05/30/25 Ordered By: Eleazar Yates Referrals: Jaiden Terrell MD [Physician, [employer]OVER] - 1-3 days Slim Salas MD [Primary Care Provider, Family Practice] Patient Instructions: Bleeding (ED), Opioid Safety, Pain Management, Patient Portal & Nura Instructions Activity Restrictions/Additional Instructions: Return to emergency room for fever greater than 100.4 ?F, brisk vaginal bleeding, soaking more than 1 pad per hour for more than 3 hours straight, any other concerning symptoms. The tile layer helper will call you tomorrow or Sunday morning, for follow-up. They will make an appointment for follow-up in the clinic next week. You received medication which can worsen your vaginal bleeding transiently for the next several hours, but then should improve. It can cause you to cramp as well. Print Language: Greek Coding Level of Care Code ED Water Vessel Captain for Jared Mirza
[2025-05-30 22:30] VITALS: BP 143/89
[2025-05-30] MEDS: methylergonovine 0.2 mg/mL INJ 1 mL IM (23:12)
== END 2025-05-30 23:21 | disposition home or self-care (01) ==
PROVIDERS: Emergency Provider Emergency Medicine; PCP Family Medicine
DX: O72.1 Other immediate postpartum hemorrhage (principal)
CPT/HCPCS: 36415; 76830; 80053; 81001; 84702; 85025; 87086; 96361; 96372; 96374; 96375; 99284; J2210; J2270; J2405; J7030

== ENCOUNTER 2025-06-04 10:52 | Emergency (ER) | payer OTHER, BC, SELFPAY ==
[2025-06-04 11:03] VITALS: BP 138/87; PULSE 113; RESP 16; TEMP 37.6; O2SAT 98; BMI 48.6
[2025-06-04 11:35] LABS: Hematocrit 35.6 % (36-47); Hemoglobin 11.10 g/dL (11.27-16.99); Mean Corpuscular HGB Conc 31.2 g/dL (30-55); Mean Corpuscular Hemoglobin 26.0 pg (27-33); Mean Corpuscular Volume 83.4 fl (85-98); Nucleated Red Blood Cells % 0 %; Platelet Count 398 10^3/cmm (157-399); Red Blood Count 4.27 10^6/uL (3.85-5.65); White Blood Count 10.40 10^3/uL (3.29-11.43)
[2025-06-04 11:44] LABS: Add Urine Microscopic? NO
--- NOTE | 2025-06-04 11:47 | XR_ITS ---
WS: [id number] Portable AP upright chest, 06/04/2025 Clinical Data: post fever Comparison: Portable chest, 11/07/2022 Findings: No nodules, masses or effusions are seen. The heart is normal. The pulmonary vascularity is not increased. No pneumonia or pneumothorax is seen. XR/XR chest 1V portable [id number] Impression: Negative chest.
--- NOTE | 2025-06-04 11:48 | ED_ITS ---
HPI - Fever 2 General: Chief Complaint: Fever Stated Complaint: Fever incision Pain Time Seen by Provider: 06/04/25 11:08 Source: patient Mode of arrival: ambulatory Limitations: no limitations History of Present Illness: Patient is a 30-year-old female who presents to the ED today with a complaint of fever. She states she underwent section by Dr. Camara approximately 2.5 weeks ago. She was seen here in our facility a few days ago due to vaginal bleeding. She states this has improved. Reports soaking approximately 2-3 pads in a 24-hour period. She states she overall feels achy. She is still having pain at her incision. She was taking hydrocodone but is now out of this medication. Does not feel this is necessarily worsening- she is not improving as expected. No large amount of discharge from incision. Fevers as high as 101 at home. Temperature upon arrival is 99.7. She has not had any vomiting. No rash. No concerns for mastitis. MD elicited complaint: fever Pertinent past history: other () Onset (ago): hour(s) Measured temperature: 101 F Exacerbating factors: nothing Relieving factors: nothing Associated symptoms: Reports other (Pain at ); Deny flank pain, chest pain, diarrhea, dysuria, extremity pain or vomiting Treatments prior to arrival fever: none Related Data Home Medications ?Medication ?Instructions ?Recorded ?Confirmed vit no.95-ferrous 1 tab PO DAILY 11/07/2202/09 fumarate 28 mg-folic acid 800 mcg tablet () docusate sodium 100 mg capsule 100 mg PO DAILY 5 05/25/25 (Colace) magnesium hydroxide 400 mg/5 mL 5 ml PO DAILY PRN Hear tburn 12/17/24 05/25/25 oral suspension (Milk of Magnesia) L. crispatus, gasseri, jensenii, 1 tab PO 1XD 03/09/25 05/25/25 rhamnosus 12 billion cell chew tablet Previous Rx's ?Medication ?Instructions ?Recorded ibuprofen 800 mg tablet 800 mg PO TID #0 tabs hydrocodone 5 mg-acetaminophen 325 1 tab PO Q6H PRN Mo derate To 06/04/25 mg tablet Severe Pain #14 tabs Allergies Allergy/AdvReac Type Severity Reaction Status Date / Time pepper (genus Capsicum) Allergy Severe hives Verified 06/04/25 11:08 Review of Systems 2 Const: Reports: fever(s) and body aches; Denies: fatigue or malaise Card: Denies: chest pain Resp: Denies: dyspnea, productive cough or non-productive cough GI: Reports: other (pain at c section site-states this is not worsening); Denies: vomiting, diarrhea or constipation : Denies: flank pain or dysuria Musc: Denies: neck pain, back pain, extremity pain or extremity swelling Skin/Breast: Reports: other (no breast redness/warmth); Denies: rash PFSH ED 2 PFSH: Medical History delivery indicated due to breech presentation Hidradenitis suppurativa On topical clindamycin---follows up with Dr. Wallace PCOS (polycystic ovarian syndrome) Diagnosed with PCOS at the age of 17 when she had irregular cycles. States that she had a hemoglobin A1c in 2019 that was 5.3. Surgical History H/O excision of mass (01/17/22) left chest wall S/P adenoidectomy At the age of 6 Family History Grandfather Heart disease maternal Diabetes paternal and maternal Grandmother Diabetes maternal Heart disease paternal Stroke paternal Father Diabetes Brother Thyroid disease Mother Hypertension Denies family history of Colon cancer Ovarian cancer Hyperlipidemia Breast cancer Uterine cancer Social History Smoking and tobacco/nicotine status: never used tobacco/nicotine Physical Exam 2 Const: COMMON NORMALS: no acute distress, patient oriented x3, no limitations, alert and well nourished GENERAL APPEARANCE: cooperative NUTRITIONAL APPEARANCE: obese ORIENTATION/CONSCIOUSNESS: Yes awake, Yes oriented to person, Yes oriented to place and Yes oriented to time Eye: COMMON NORMALS: no scleral icterus Resp: COMMON NORMALS: normal respiratory effort and clear to auscultation bilaterally AUSCULTATION: clear to auscultation bilaterally Cardio: COMMON NORMALS: regular rhythm RATE: tachycardic RHYTHM: regular rhythm GI: COMMON NORMALS: Soft to palpation and no masses PALPATION: Yes Soft to palpation, No Guarding due to palpation present (GI) and No Rigid due to palpation OTHER: appears well healing w/o discharge or odor; small amount of erythema/warmth under pannus-possible cellulitis vs just redness under pannus fold; no cellulitis direclty surrounding incision : COMMON NORMALS: Yes no CVA tenderness BLADDER/KIDNEY EXAM: Yes no CVA tenderness Back/Pelvis: COMMON NORMALS: no CVA tenderness Extremity: GENERAL: Yes normal exam except as noted Neuro: RONAN COMA SCALE: document GCS findings Ron[place] coma scale eye opening: Spontaneous [place] coma scale verbal response: Orientated [place] coma scale motor response: Obey commands [place] coma scale total score: 15 COMMON NORMALS: patient oriented x3, moves all extremities, no focal motor deficits and no sensory deficits noted SENSORIUM/ORIENTATION: Yes alert, Yes oriented to person, Yes oriented to place and Yes oriented to time Skin: COMMON NORMALS: no rashes or lesions noted GENERAL SKIN EXAM: no rashes or lesions noted Course 2 Consultations: Consultation #1: Dr. Ribera-felt comfortable allowing DC from emergency dept and their clinic will see her at 0800 tomorrow morning; did not recommend CT imaging or repeat US today Vital Signs: Vital signs: Vital Signs Temperature 99.7 F H 06/04/25 11:03 Pulse Rate 104 H 06/04/25 14:23 Respiratory Rate 18 06/04/25 11:54 Blood Pressure 132/80 06/04/25 14:23 Pulse Oximetry 96 06/04/25 14:23 Oxygen Delivery Me thod Room Air 06/04/25 13:00 MDM - Fever Medical Decision Making Patient is a 30-year-old female 2.5 weeks here for fever of up to 101 at home. Temperature was 99.7 upon arrival. Mildly tachycardic. Her white count is normal. Lactic is normal. H&H are stable. Vaginal bleeding has continued to decrease since delivery since her last ED visit. Chemistry is unremarkable. Initial UA was grossly contaminated thus cath specimen was obtained and unremarkable. Influenza/COVID/RSV was negative. Chest x-ray is normal. Did review previous visit when she was here for vaginal bleeding. She has felt like vaginal bleeding has significantly slowed. Her ultrasound report read retained products of conception however after speaking to OB they stated reads will often say this. This would be significant unlikely after a as they suction uterine cavity. Her hcg then was down to 18. Vaginal bleeding has decreased which is re-assuring. I did discuss her case today with OB ribbon lapper tender, Dr. Ribera and asked about obtaining CT scan or repeat ultrasound today. He did not feel like these were necessary. He was comfortable following up with her in office at 8 AM in the morning. Return ED precautions discussed. Medical Records I reviewed the patient's medical records. Lab Data I reviewed the patient's lab results. 06/04/25 11:24 06/04/25 11:24 Radiology Impressions Chest X-Ray 06/04/25 11:47 Impression: Negative chest. Laboratory Results WBC 10.40 10^3/uL (3.29-11.43) 06/04/25 11:24 RBC 4.27 10^6/uL (3.85-5.65) 06/04/25 11:24 Hgb 11.10 g/dL (11.27-16.99) L 06/04/25 11:24 Hct 35.6 % (36-47) L 06/04/25 11:24 MCV 83.4 fl (85-98) L 06/04/25 11:24 MCH 26.0 pg (27-33) L 06/04/25 11:24 MCHC 31.2 g/dL (30-55) 06/04/25 11:24 RDW 15.1 % (12.1-15.1) 06/04/25 11:24 Plt Count 398 10^3/cmm (157-399) 06/04/25 11:24 MPV 9.5 fL (7.4-10.4) 06/04/25 11:24 Neut % (Auto) 79.5 % 06/04/25 11:24 Lymph % (Auto) 11.4 % 06/04/25 11:24 [place] % (Auto) 7.1 % 06/04/25 11:24 Eos % (Auto) 1.1 % 06/04/25 11:24 Baso % (Auto) 0.5 % 06/04/25 11:24 Neut # (Auto) 8.27 10^3/uL (1.8-7.7) H 06/04/25 11:24 Lymph # (Auto) 1.2 10^3/uL (0.8-4.8) 06/04/25 11:24 [place] # (Auto) 0.7 10^3/uL (0.2-0.9) 06/04/25 11:24 Eos # (Auto) 0.1 10^3/uL (0.0-0.8) 06/04/25 11:24 Baso # (Auto) 0.1 10^3/uL (0.0-0.1) 06/04/25 11:24 Nucleated RBC % (auto) 0 % 06/04/25 11:24 Nucleated RBCs # 0.0 /100WBC 06/04/25 11:24 Sodium 136 mmol/L (136-145) 06/04/25 11:24 Potassium 4.0 mmol/L (3.5-5.1) 06/04/25 11:24 Chloride 100 mmol/L (98-107) 06/04/25 11:24 Carbon Dioxide 22 mmol/L (22-29) 06/04/25 11:24 Anion Gap 18.0 (5-19) 06/04/25 11:24 BUN 12 mg/dL (6-20) 06/04/25 11:24 Creatinine 1.1 mg/dL (0.5-0.9) H 06/04/25 11:24 GFR Calculation 57.9 mL/min (90-130) L 06/04/25 11:24 Glucose 97 mg/dL (65-115) 06/04/25 11:24 Calculated Osmolality 282 mOsm/kg (285-295) L 06/04/25 11:24 Lactic Acid 0.9 mmol/L (0.5-2.2) 06/04/25 11:24 Calcium 9.2 mg/dL (8.5-10.5) 06/04/25 11:24 Total Bilirubin 0.7 mg/dL (0.15-1.2) 06/04/25 11:24 AST 15 U/L (0-32) 06/04/25 11:24 ALT 16 U/L (0-33) 06/04/25 11:24 Alkaline Phosphatase 91 U/L (35-105) 06/04/25 11:24 Total Protein 7.7 g/dL (6.6-8.7) 06/04/25 11:24 Albumin 3.9 g/dL (3.5-5.2) 06/04/25 11:24 Globulin 3.8 g/dL (1.3-4.6) 06/04/25 11:24 Urine Color Yellow (Yellow) 06/04/25 12:25 Urine Appearance Clear (CLEAR) 06/04/25 12:25 Urine pH 6.5 (5-7) 06/04/25 12:25 Ur Specific [place] 1.019 (1.005-1.030) 06/04/25 12:25 Urine Protein Negative (Negative) 06/04/25 12:25 Urine Glucose (UA) Negative (Normal) 06/04/25 12: Urine Ketones Negative (Negative) 06/04/25 12: Urine Blood 2+ (Negative) A 06/04/25 12:25 Urine Nitrate Negative (Negative) 06/04/25 12: Urine Bilirubin Negative (Negative) 06/04/25 12: Urine Urobilinogen 1.0 mg/dL (Negative) 06/04/25 12:25 Ur Leukocyte Esterase Negative (Negative) 06/04/25 12:25 Urine RBC 0-2 /hpf (0-2) 06/04/25 12:25 Urine WBC 0-5 /hpf (0-5) 06/04/25 12:25 Ur Squamous Epith Cells 0-5 /hpf (0-5) 06/04/25 12:25 Amorphous Sediment Not Reportable 06/04/25 12:25 Urine Bacteria None seen /hpf (NONE) 06/04/25 12: Hyaline Casts 1.21 /lpf 06/04/25 12:25 Influenza A (PCR) Negative (Negative) 06/04/25 11:30 Influenza Type B (PCR) Negative (Negative) 06/04/25 11:30 RSV (PCR) Negative (Negative) 06/04/25 11:30 SARS-CoV-2 (PCR) Negative (Negative) 06/04/25 11:30 All radiology interpretation(s) finalized by discharge Discharge Plan Discharge Patient Disposition: Home Clinical Impression: fever Condition: Stable Prescriptions: Continued hydrocodone-acetaminophen 5-325 mg tablet 1 tab PO Q6H PRN (Reason: Moderate To Severe Pain) Qty: 14 0RF No Action L.crispat,gasseri,duran,rhamn 12 billion cell tablet,chewable 1 tab PO 1XD magnesium hydroxide [Milk of Magnesia] 400 mg/5 mL suspension 5 ml PO DAILY PRN (Reason: Heartburn) docusate sodium [Colace] 100 mg capsule 100 mg PO DAILY PNV no.95-ferrous fumarate-FA [] 28 mg iron- 800 mcg Tablet 1 tab PO DAILY ibuprofen 800 mg Tablet 800 mg PO TID Qty: 0 0RF Discharge Orders: Discharge ED (Routine); Ordered 06/04/25 Ordered By: April Holder Referrals: Slim Salas MD [Primary Care Provider, Family Practice] Patient Instructions: Opioid Safety, Pain Management, Patient Portal & Nura Instructions Activity Restrictions/Additional Instructions: As we discussed, [facility] will see you tomorrow at 8 AM for further evaluation you may return to the emergency department at anytime for any further concerns you may have. Print Language: Guamanian Coding Level of Care Code ED Core Composer Machine Tender for Jared Mirza
[2025-06-04 11:53] LABS: UA Manual Slide Review YES
[2025-06-04 11:54] VITALS: BP 132/76; PULSE 98; RESP 18; O2SAT 100
[2025-06-04 11:54] LABS: Charge for UA Resulting for Rev
[2025-06-04 11:59] LABS: Alanine Aminotransferase 16 U/L (0-33); Albumin Level 3.9 g/dL (3.5-5.2); Alkaline Phosphatase 91 U/L (35-105); Anion Gap 18.0 (5-19); Aspartate Amino Transferase 15 U/L (0-32); Blood Urea Nitrogen 12 mg/dL (6-20); Calcium 9.2 mg/dL (8.5-10.5); Carbon Dioxide 22 mmol/L (22-29); Chloride 100 mmol/L (98-107); Globulin 3.8 g/dL (1.3-4.6); Glucose 97 mg/dL (65-115); Osmolality Calculated 282 mOsm/kg (285-295); Potassium 4.0 mmol/L (3.5-5.1); Sodium 136 mmol/L (136-145); Total Protein 7.7 g/dL (6.6-8.7)
[2025-06-04 12:00] VITALS: BP 112/66; PULSE 94; O2SAT 100
[2025-06-04 12:00] LABS: Lactic Sepsis W/Reflex 0.9 mmol/L (0.5-2.2)
[2025-06-04 12:34] LABS: Respiratory Syncytial Virus Ce NEGATIVE (Negative); SARS-CoV-2 PCR NEGATIVE (Negative)
[2025-06-04 12:56] VITALS: BP 136/79; PULSE 101; O2SAT 100
[2025-06-04 12:57] LABS: Glucose Urine UA Negative (Normal); Nitrate Urine Negative (Negative); Specific Gravity, Urine 1.019 (1.005-1.030)
[2025-06-04 13:00] VITALS: BP 125/75; PULSE 98; O2SAT 100
[2025-06-04 13:02] LABS: Add Urine Microscopic? YES; Universal Test for UA Present (0)
[2025-06-04 13:21] LABS: UA Slide Review UA Slide Review Perf
[2025-06-04 14:23] VITALS: BP 132/80; PULSE 104; O2SAT 96
== END 2025-06-04 14:24 | disposition home or self-care (01) ==
PROVIDERS: Emergency Provider Physician Assistant; PCP Family Medicine
DX: R50.9 Fever, unspecified (principal); G89.18 Other acute postprocedural pain; Z11.52 Encounter for screening for COVID-19
CPT/HCPCS: 36415; 71045; 80053; 81001; 81003; 83605; 85025; 87086; 87637; 96361; 96374; 99284; J1885; J7030

== ENCOUNTER 2025-06-04 22:29 | Inpatient (IN) | payer OTHER, BC, SELFPAY ==
[2025-06-04 22:33] VITALS: BP 126/76; PULSE 124; RESP 20; TEMP 39.1; O2SAT 100; BMI 48.9
--- OUTSIDE RECORDS SUMMARY | 2025-06-04 22:33 | XMS_ITS | Data Portability ---
Author Organization [facility] Rich Mckeon [facility] Jolanta Kerr [facility] Address [address] [place] [address] Care Team Providers Care Car Washer Name Role Phone CARLY TORRES Primary Care [...] None recorded. Lab urinalysis, dipstick [address] ([facility]), [address] [place] [address], [address], 17:29:21 test, urine [address] ([facility]), [address] [place], [address], 5 18:55:12 culture, urine 2024 025 [facility], [address] [place] [address], [address] [place], [address], 00:50:42 urinalysis, dipstick 2023 024 [email or web address] [facility] ([facility]), [address] [place], [address], 4 16:00:30 culture, urine 2023 024 [email or web address] [facility], [address] [place], [address], 4 16:26:07 SARS CoV 2 RNA, QL, nasopharynx 2022 023 [email or web address] [facility] ([facility]), [address] [place], [address], 3 11:52:23 Referral None recorded. Procedures None recorded. Surgeries None recorded. Imaging XR, kidney + ureter + bladder 2024 025 MALLY Not available 5 09:18:26 Medication Orders fluconazole 150 mg tablet 2023 024 [email or web address] [facility], [address], [place], [address], 5 16:45:38 Patient TargetsNo targets recorded. Patient InstructionsNo instructions recorded. Reason for Referral None Reported. Results Created Date Observation Date Name Description Value Unit Range Abnormal Flag Note LastModifiedBy Organization Detail LastModifiedTime 10/07/1910/05/2024 CULTU RE, URINE , ROUTI NE culture, urine, routine SEE NOTE CULTU RE, URINE , ROUTI NE Micro Numbe r: [id number] Test Statu s: Final Speci men [...] area of inter est: 866-M YQUES T ([phone]) NO COLLE CTION DATE RECEI ROC. WE HAVE USED THE DATE THE SPECI MEN WAS RECEI ROC BY THIS LABOR ATORY THE COLLE CTION DATE. IF THIS IS INCOR RECT, PLEAS E CONTA CT CLIEN T SERVI [place]. PHONE NUMBE R: [phone] Not Available [facility] [address] [place], [address], 10/06/2024 00:50:42 09/23/19 23 09/22/2022 SARS CoV 2 RNA, QL, nasop haryn x COVID positi ve Not Available [facility] ([facility]) [address] [place] [address], [address], 09/22/2022 11:37:19 07/08/19 24 07/08/2023 urina lysis , dipst ick Leukocytes Negati ve Not Available [facility] ([facility]) [address] [place], [address], 07/08/2023 15:10:43 07/08/19 24 07/08/2023 urina lysis , dipst ick Nitrite negati ve Not Available [facility] ([facility]) [address] [place], [address], 07/08/2023 15:10:43 07/08/19 24 07/08/2023 urina lysis , dipst ick Urobilinogen .2 Not Available [facility] ([facility]) [address] [place], [address], 07/08/2023 15:10:43 07/08/19 24 07/08/2023 urina lysis , dipst ick Protein Negati ve Not Available [facility] ([facility]) [address] [place], [address], 07/08/2023 15:10:43 07/08/19 24 07/08/2023 urina lysis , dipst ick pH 6.0 Not Available [facility] ([facility]) [address] [place], [address], 07/08/2023 15:10:43 07/08/19 24 07/08/2023 urina lysis , dipst ick Blood Negati ve Not Available [facility] ([facility]) [address] [place], [address], 07/08/2023 15:10:43 07/08/19 24 07/08/2023 urina lysis , dipst ick Specific Duvall 1.030 Not Available [facility] ( [facility]) [address] [place], [address], 07/08/2023 15:10:43 07/08/19 24 07/08/2023 urina lysis , dipst ick Ketone Negati ve Not Available [facility] ([facility]) [address] [place], [address], 07/08/2023 15:10:43 07/08/19 24 07/08/2023 urina lysis , dipst ick Bilirubin Negati ve Not Available [facility] ([facility]) [address] [place], [address], 07/08/2023 15:10:43 07/08/19 24 07/08/2023 urina lysis , dipst ick Glucose Negati ve Not Available [facility] ([facility]) [address] [place], [address], 07/08/2023 15:10:43 07/08/19 24 07/08/2023 urina lysis , dipst ick Appearance Clear Not Available [facility] ([facility]) [address] [place], [address], 07/08/2023 15:10:43 07/08/19 24 07/08/2023 urina lysis , dipst ick Color Dark Yellow Not Available [facility] ([facility]) [address] [place], [address], 07/08/2023 15:10:43 10/04/19 25 10/03/2024 pregn luana test, urine HCG positi ve Not Available [facility] ([facility]) [address] [place], [address], 10/03/2024 17:46:13 10/04/19 25 10/03/2024 urina lysis , dipst ick Leukocytes Trace Not Available [facility] ([facility]) [address] [place], [address], 10/03/2024 17:00:45 10/04/19 25 10/03/2024 urina lysis , dipst ick Nitrite negati ve Not Available [facility] ([facility]) [address] [place], [address], 10/03/2024 17:00:45 10/04/19 25 10/03/2024 urina lysis , dipst ick Urobilinogen .2 Not Available [facility] ([facility]) [address] [place], [address], 10/03/2024 17:00:45 10/04/19 25 10/03/2024 urina lysis , dipst ick Protein Negati ve Not Available [facility] ([facility]) [address] [place], [address], 10/03/2024 17:00:45 10/04/19 25 10/03/2024 urina lysis , dipst ick pH 7.0 Not Available [facility] ([facility]) [address] [place], [address], 10/03/2024 17:00:45 10/04/19 25 10/03/2024 urina lysis , dipst ick Blood Negati ve Not Available [facility] ([facility]) [address] [place], [address], 10/03/2024 17:00:45 10/04/19 25 10/03/2024 urina lysis , dipst ick Specific Duvall 1.020 Not Available [facility] ( [facility]) [address] [place], [address], 10/03/2024 17:00:45 10/04/19 25 10/03/2024 urina lysis , dipst ick Ketone Negati ve Not Available [facility] ([facility]) [address] [place], [address], 10/03/2024 17:00:45 10/04/19 25 10/03/2024 urina lysis , dipst ick Bilirubin Negati ve Not Available [facility] ([facility]) [address] [place], [address], 10/03/2024 17:00:45 10/04/19 25 10/03/2024 urina lysis , dipst ick Glucose Negati ve Not Available [facility] ([facility]) [address] [place], [address], 10/03/2024 17:00:45 10/04/19 25 10/03/2024 urina lysis , dipst ick Appearance Clear Not Available [facility] ([facility]) [address] [place], [address], 10/03/2024 17:00:45 10/04/19 25 10/03/2024 urina lysis , dipst ick Color Yellow Not Available [facility] ([facility]) [address] [place], [address], 10/03/2024 17:00:45 10/07/19 25 10/03/2024 XR, kidne y + urete r + bladd er No observ ation record ed. [email or web address] [facility] [address], [address], 10/06/2024 11:23:01 10/07/19 25 10/03/2024 XR, kidne y + urete r + bladd er No observ ation record ed. [email or web address] [facility] [address] [place], [address], 10/06/2024 11:23:02 10/07/19 25 10/03/2024 XR, kidne y + urete r + bladd er No observ ation record ed. Not Available 10/07 09:31:42 Result Notes None recorded. Medical Equipment None Reported. Allergies Allergen ID Allergen Name Allergen Category Reaction Reaction Severity Criticality Documentation Date Start Date Code Code System Note Provider Name and Address Organization Details Recorded Time 80655 cayenne pepper fruits food Not available Not available Not available 07/08/2023 Corinne [place]jo [place] [facility] 15:34:39 19874 bagley pepper food Not available Not available Not available 07/08/2023 Corinne [place]jo [place] [facility] 4 15:34:44 Medications Name Sig Start Date [...] Updated DateTime 4 167.64 cm 43.6 kg/m2 952934. 94 g 100 % 85 /min 16 /min 97.1 [degF] 112/80 mm[Hg] Corinne Gutierrez [facility] 4 15:34:17 Date Recorded Body height Body mass index (BMI) Body weight Oxygen saturation Heart rate Respiratory rate Body temperature Provider Name and Address Organization Details Last Updated DateTime 3 167.64 cm 51.6 kg/m2 976337. 56 g 98 % 87 /min 19 /min 98.3 [degF] SOREN NUR [facility] 3 11:34:41 Date Recorded Body height Body mass index (BMI) Body weight Oxygen saturation Heart rate Body temperature Respiratory rate Systolic And Diastolic Provider Name and Address Organization Details Last Updated DateTime 5 167.64 cm 54 kg/m2 609183. 65 g 98 % 80 /min 98.2 [degF] 17 /min 116/80 mm[Hg] JEB HUNG [facility] 5 16:45:06 Social History [...] 10/03/2024 16:39:04 DTaP 9 completed Not Available [facility] 10/03/2024 16:39:04 MMR 9 completed Not Available [facility] 10/03/2024 16:39:04 Hib (PRP-T) 9 completed Not [...] virus, trivalent, preservative 3 completed Not Available [facility] 10/03/2024 16:39:04 Past Encounters Encounter ID Performer Location Encounter Start Date Encounter Closed Date Diagnosis/Indication Diagnosis SNOMED-CT Code Diagnosis ICD10 Code Diagnosis IMO Codes Diagnosis Note [id number] JUAN BYRNE PA-C [facility] ([facility]) [address] [place] [address] 09/22/2022 11:22:05 09/22/2022 11:52:46 Cough 80430801 R05.9 COVID-19 853771060 U07.1 Quarantine for 5 days then mask x 5d. RTC or to ER if any s/s of respirator y distress. [id number] GLORIA ALDANA [facility] ([facility]) [address] [place] [address] 07/08/2023 15:04:46 07/08/2023 15:52:28 Dysuria 84528899 R30.0 Urine negative. Will send for culture. Candidiasis of vagina 72 720661 B37.31 [id number] GLORIA ALDANA [facility] ([facility]) [address] [place] [phone] 10/03/2024 16:37:10 10/04/2024 11:59:44 Left lower quadrant pain 605761247 R10.32 7330021 Negative urine. Unable to reproduce abd pain with palpation. Follow up with PCP next week. X ray done. Patient then stated that she had missed last period. Urine test positive. If any worsening abdominal pain, vaginal bleeding, present to ER for further evaluation and treatment. Patient to call PCP Dr Salas Sunday to schedule follow up appt. Allergic rhinitis 126963 04 J30.9 [id number] May use otc meds like zyrtec and [...] 10/03/2024 2 [place] Chedangelon Che Echeverrias [id number] Cheyann D 10/06/2024 1 [facility] [id number] Cheyann D [place] [id number] Cheyann D [place] 10/03/2024 2 [employer] [facility] Cheyann D Gomez [id number] Cheyann D 10/03/2024 2 [facility] [place] Chedangelon D Gomez [id number] Cheyann D 10/03/2024 1 [employer] [facility] (PPO) Cheyann D Gomez [id number] Cheyann D 10/03/2024 1 [place] [id number] Cheyann D Gomez [id number] Cheyann D [place] 10/03/2024 1 [employer] [facility] (PPO) Cheyann D [place] [id number] Cheyann D 10/03/2024 2 [place] [id number] Manuel [place] [id number] Cheyann D Notes Date Note Type Note [...] noted in the HPI JUAN BYRNE PA-C [address] [place] [address], [phone], [facility] 09/22/2022 11:52:35 07/08/2023 text/html LUTSReported by PatientHPIFor [...] as noted in the HPI GLORIA ALDANA [address] [place] [address], [phone], [facility] 07/08/2023 16:00:44 10/03/2024 text/html ROS as [...] the AM. Denies any fever. GLORIA ALDANA [address] [place], [address], [facility] 10/03/2024 19:00:16 OBGyn Episode No OBEpisode recorded.
[2025-06-04 23:21] LABS: Hematocrit 35.2 % (36-47); Hemoglobin 10.90 g/dL (11.27-16.99); Mean Corpuscular HGB Conc 31.0 g/dL (30-55); Mean Corpuscular Hemoglobin 25.6 pg (27-33); Mean Corpuscular Volume 82.6 fl (85-98); Nucleated Red Blood Cells % 0 %; Platelet Count 399 10^3/cmm (157-399); Red Blood Count 4.26 10^6/uL (3.85-5.65); White Blood Count 11.95 10^3/uL (3.29-11.43)
--- NOTE | 2025-06-04 23:21 | CTR_ITS ---
PROCEDURE INFORMATION: Exam: CT Abdomen And Pelvis With Contrast Exam date and time: 06/04/2025 11:47 PM Age: 30 years old Clinical indication: Abdominal pain; Prior surgery; Surgery date: <1 month; Surgery type: C section; Additional info: dehiscence, redness, fever TECHNIQUE: Imaging protocol: Computed tomography of the abdomen and pelvis with contrast. Radiation optimization: All CT scans at this facility use at least one of these dose optimization techniques: automated exposure control; mA and/or kV adjustment per patient size (includes targeted exams where dose is matched to clinical indication); or iterative reconstruction. Contrast material: OMNI 350; Contrast volume: 100 ml; Contrast route: INTRAVENOUS (IV); COMPARISON: CR XR KUB [id number] 10/03/2024 4:10 PM RADIATION DOSE METRICS: Total DLP (mGy-cm): 1373.13 FINDINGS: Liver: Normal. No mass. Gallbladder and biliary ducts: Sludge in the gallbladder. Pancreas: Normal. No ductal dilation. Spleen: Normal. No splenomegaly. Adrenal glands: Normal. No mass. Kidneys and ureters: Normal. No hydronephrosis. Stomach and bowel: Unremarkable. No obstruction. No mucosal thickening. Appendix: No evidence of appendicitis. Intraperitoneal space: Unremarkable. No free air. No significant fluid collection. Vasculature: Unremarkable. No abdominal aortic aneurysm. Lymph nodes: Unremarkable. No enlarged lymph nodes. Urinary bladder: Unremarkable as visualized. Reproductive: Unremarkable as visualized. Bones/joints: Unremarkable. No acute fracture. Soft tissues: Fluid collection within the Pfannenstiel incision, concerning for a postoperative abscess. This measures approximately 17.8 x 6.1 cm. Overlying skin thickening and subcutaneous edema, consistent with cellulitis. CT/CT abdomen pelvis w con* [id number] IMPRESSION: 1. Fluid collection within the Pfannenstiel incision, concerning for a postoperative abscess, measuring 17.8 x 6.1 cm. Overlying skin thickening and subcutaneous edema, consistent with cellulitis. 2. Sludge in the gallbladder.
--- NOTE | 2025-06-04 23:26 | ED_ITS ---
HPI - Fever 2 General: Chief Complaint: Fever Stated Complaint: Fever 103.2 post c sec. insicion open Time Seen by Provider: 06/04/25 22:58 History of Present Illness: Patient is 30-year-old female presents to ED with worsening fever. Context: 05/17. No issues with initially. On 05/30 patient started having some increasing bleeding, clotting. She presented to the emergency room. She also complained of chills at that time, however no additional concerns, no documented fevers. Today, earlier today, she had a fever, drainage from her incision. 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 Ribera. Patient states that she went home, increase fluid intake, and took Tylenol an hour prior to arrival, despite this her temperature went up to 103 ?F Bleeding improved after 05/30 visit, however did not completely stop. The bleeding vaginally has increased. Since she was home, the bleeding to her external portion of her section scar has increased as well. Associated symptoms: Reports vaginal discharge; Deny flank pain, chest pain, diarrhea, dysuria, extremity pain, headache(s) or vomiting Related Data Home Medications ?Medication ?Instructions ?Recorded ?Confirmed vit no.95-ferrous 1 tab PO DAILY 11/07/2202/09 fumarate 28 mg-folic acid 800 mcg tablet () docusate sodium 100 mg capsule 100 mg PO DAILY 5 05/25/25 (Colace) magnesium hydroxide 400 mg/5 mL 5 ml PO DAILY PRN Hear tburn 12/17/24 05/25/25 oral suspension (Milk of Magnesia) L. crispatus, gasseri, jensenii, 1 tab PO 1XD 03/09/25 05/25/25 rhamnosus 12 billion cell chew tablet Previous Rx's ?Medication ?Instructions ?Recorded ibuprofen 800 mg tablet 800 mg PO TID #0 tabs hydrocodone 5 mg-acetaminophen 325 1 tab PO Q6H PRN Mo derate To 06/04/25 mg tablet Severe Pain #14 tabs Allergies Allergy/AdvReac Type Severity Reaction Status Date / Time pepper (genus Capsicum) Allergy Severe hives Verified 06/04/25 11:08 Review of Systems 2 General: Reports: 10 or more systems reviewed and unremarkable except in HPI and below Const: Reports: fever(s) and body aches; Denies: fatigue or malaise Card: Denies: chest pain Resp: Denies: dyspnea, productive cough or non-productive cough GI: Reports: other (pain at c section site-states this is not worsening); Denies: vomiting, diarrhea or constipation : Reports: vaginal bleeding, vaginal discharge and other (Wound pulling apart along section scar); Denies: flank pain or dysuria Musc: Denies: neck pain, back pain, extremity pain or extremity swelling Skin/Breast: Reports: other (no breast redness/warmth); Denies: rash Neuro: Denies: headache(s), numbness in extremities, weakness in extremities, sensory changes or lack of coordination Psych: Denies: anxiety or depression PFSH ED 2 PFSH: Medical History (Updated 06/05/25 @ 00:31 by MARK Morton) delivery indicated due to breech presentation Hidradenitis suppurativa On topical clindamycin---follows up with Dr. Wallace PCOS (polycystic ovarian syndrome) Diagnosed with PCOS at the age of 17 when she had irregular cycles. States that she had a hemoglobin A1c in 2020 that was 5.3. Surgical History H/O excision of mass (01/17/22) left chest wall S/P adenoidectomy At the age of 6 Family History Grandfather Heart disease maternal Diabetes paternal and maternal Grandmother Diabetes maternal Heart disease paternal Stroke paternal Father Diabetes Brother Thyroid disease Mother Hypertension Denies family history of Colon cancer Ovarian cancer Hyperlipidemia Breast cancer Uterine cancer Social History Smoking and tobacco/nicotine status: never used tobacco/nicotine Physical Exam 2 Const: COMMON NORMALS: no acute distress, patient oriented x3, no limitations, alert and well nourished GENERAL APPEARANCE: cooperative NUTRITIONAL APPEARANCE: obese ORIENTATION/CONSCIOUSNESS: Yes awake, Yes oriented to person, Yes oriented to place and Yes oriented to time HENMT: COMMON NORMALS: normocephalic and atraumatic HEAD & SCALP: n ormocephalic and atraumatic Eye: COMMON NORMALS: no scleral icterus Lymph: LYMPHATIC: no lymphadenopathy noted Chest: COMMONS NORMALS: normal inspection of the chest Resp: COMMON NORMALS: normal respiratory effort and clear to auscultation bilaterally AUSCULTATION: clear to auscultation bilaterally Cardio: COMMON NORMALS: regular rhythm RATE: tachycardic RHYTHM: regular rhythm GI: COMMON NORMALS: Soft to palpation and no masses PALPATION: Yes Soft to palpation, No Guarding due to palpation present (GI) and No Rigid due to palpation : COMMON NORMALS: Yes no CVA tenderness BLADDER/KIDNEY EXAM: Yes no CVA tenderness OTHER: Low-lying suprapubic section scar: Mild amount of bleeding, dark, with dehiscence, associated redness superior to this area, hardness, and warmth Back/Pelvis: COMMON NORMALS: no CVA tenderness Extremity: GENERAL: Yes normal exam except as noted Neuro: COMMON NORMALS: patient oriented x3, moves all extremities, no focal motor deficits and no sensory deficits noted SENSORIUM/ORIENTATION: Yes alert, Yes oriented to person, Yes oriented to place and Yes oriented to time Skin: COMMON NORMALS: no rashes or lesions noted GENERAL SKIN EXAM: no rashes or lesions noted Course 2 Consultations: Consultation #1: 0005: D/w Dr. Ribera, recommended admiss ion for IV antibiotics, possible I/D. He would like to consult and would like hospitalist to do primary admission/antibiotic coverage Consultation #2: Hospitalist -out of scope for admission, defer to Dr. Ribera Consultation #3: Dr. Ribera accepted admission Vital Signs: Vital signs: Vital Signs Temperature 102.4 F H 06/04/25 22:33 Pulse Rate 124 H 06/04/25 22:33 Respiratory Rate 17 06/04/25 23:38 Blood Pressure 126/76 06/04/25 22:33 Pulse Oximetry 96 06/04/25 23:38 Oxygen Delivery Me thod Room Air 06/04/25 22:33 MDM - Fever Medical Decision Making Patient is 30-year-old female with section on 05/17, worsening fever, redness, and now surgical dehiscence. CT of the abdomen pelvis is pending, however initially she appears to have a significant cellulitis. She will be given clindamycin, and loaded on gentamicin here. I will call Dr. Ribera, with concerns of needing hospital admission for IV antibiotics. IV fluids were given, luckily, her lactic acid is 0.7. Blood cultures were already obtained. Discussed the case with Dr. Ribera, that states he is off call at 7 AM. He will further discuss and collaborate with colleagues whether I/D is done by himself, or colleague. Patient is already received a loading dose of gentamicin, and clindamycin, as well as IV fluid bolus. Zosyn was added every 8 hours. Will defer further antibiotics to primary surgeon. IV fluids of LR with basal rate of 125 mL/HR were ordered. Pain was addressed with morphine, since patient is n.p.o., and Zofran for pain. All of her questions answered to her satisfaction, and her and her mother note happiness with the care. Medical Records I reviewed the patient's medical records. Lab Data I reviewed the patient's lab results. 06/04/25 23:05 06/04/25 23:05 Radiology Impressions Abdomen/Pelvis CT 06/04/25 23:21 IMPRESSION: 1. Fluid collection within the Pfannenstiel incision, concerning for a postoperative abscess, measuring 17.8 x 6.1 cm. Overlying skin thickening and subcutaneous edema, consistent with cellulitis. 2. Sludge in the gallbladder. Laboratory Results WBC 11.95 10^3/uL (3.29-11.43) H 06/04/25 23:05 RBC 4.26 10^6/uL (3.85-5.65) 06/04/25 23:05 Hgb 10.90 g/dL (11.27-16.99) L 06/04/25 23:05 Hct 35.2 % (36-47) L 06/04/25 23:05 MCV 82.6 fl (85-98) L 06/04/25 23:05 MCH 25.6 pg (27-33) L 06/04/25 23:05 MCHC 31.0 g/dL (30-55) 06/04/25 23:05 RDW 15.0 % (12.1-15.1) 06/04/25 23:05 Plt Count 399 10^3/cmm (157-399) 06/04/25 23:05 MPV 9.7 fL (7.4-10.4) 06/04/25 23:05 Neut % (Auto) 79.2 % 06/04/25 23:05 Lymph % (Auto) 11.3 % 06/04/25 23:05 [place] % (Auto) 7.9 % 06/04/25 23:05 Eos % (Auto) 0.7 % 06/04/25 23:05 Baso % (Auto) 0.5 % 06/04/25 23:05 Neut # (Auto) 9.47 10^3/uL (1.8-7.7) H 06/04/25 23:05 Lymph # (Auto) 1.4 10^3/uL (0.8-4.8) 06/04/25 23:05 [place] # (Auto) 0.9 10^3/uL (0.2-0.9) 06/04/25 23:05 Eos # (Auto) 0.1 10^3/uL (0.0-0.8) 06/04/25 23:05 Baso # (Auto) 0.1 10^3/uL (0.0-0.1) 06/04/25 23:05 Nucleated RBC % (auto) 0 % 06/04/25 23:05 Nucleated RBCs # 0.0 /100WBC 06/04/25 23:05 Sodium 137 mmol/L (136-145) 06/04/25 23:05 Potassium 3.8 mmol/L (3.5-5.1) 06/04/25 23:05 Chloride 100 mmol/L (98-107) 06/04/25 23:05 Carbon Dioxide 24 mmol/L (22-29) 06/04/25 23:05 Anion Gap 16.8 (5-19) 06/04/25 23:05 BUN 12 mg/dL (6-20) 06/04/25 23:05 Creatinine 1.1 mg/dL (0.5-0.9) H 06/04/25 23:05 GFR Calculation 57.9 mL/min (90-130) L 06/04/25 23:05 Glucose 110 mg/dL (65-115) 06/04/25 23:05 Calculated Osmolality 284 mOsm/kg (285-295) L 06/04/25 23:05 Lactic Acid 0.7 mmol/L (0.5-2.2) 06/04/25 23:05 Calcium 9.2 mg/dL (8.5-10.5) 06/04/25 23:05 Total Bilirubin 0.6 mg/dL (0.15-1.2) 06/04/25 23:05 AST 15 U/L (0-32) 06/04/25 23:05 ALT 17 U/L (0-33) 06/04/25 23:05 Alkaline Phosphatase 93 U/L (35-105) 06/04/25 23:05 C-Reactive Protein 147.1 mg/L (0.0-4.9) H 06/04/25 23:05 Total Protein 7.6 g/dL (6.6-8.7) 06/04/25 23:05 Albumin 4.0 g/dL (3.5-5.2) 06/04/25 23:05 Globulin 3.6 g/dL (1.3-4.6) 06/04/25 23:05 XR interpretation done by ED provider, pending radiology final review Discharge Plan Discharge Patient Disposition: Admitted As Inpatient Clinical Impression: Endometritis Cellulitis Qualifiers: Site of cellulitis: trunk Site of cellulitis of trunk: perineum Qualified Code(s): L03.315 - Cellulitis of perineum Condition: Stable Discharge Diet: Usual diet Discharge Activity: Limit activity as instructed Coding Level of Care Code ED Fuel 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
[2025-06-04 23:38] VITALS: RESP 17; O2SAT 96
[2025-06-04] MEDS: ondansetron 2 mg/ML SDV 2 mL 4 MG IVP (23:38)
[2025-06-04] MEDS: morphine 4 mg/mL SDV 1 mL IVP (23:38)
[2025-06-04 23:39] LABS: Alanine Aminotransferase 17 U/L (0-33); Albumin Level 4.0 g/dL (3.5-5.2); Alkaline Phosphatase 93 U/L (35-105); Anion Gap 16.8 (5-19); Aspartate Amino Transferase 15 U/L (0-32); Blood Urea Nitrogen 12 mg/dL (6-20); Calcium 9.2 mg/dL (8.5-10.5); Carbon Dioxide 24 mmol/L (22-29); Chloride 100 mmol/L (98-107); Globulin 3.6 g/dL (1.3-4.6); Glucose 110 mg/dL (65-115); Osmolality Calculated 284 mOsm/kg (285-295); Potassium 3.8 mmol/L (3.5-5.1); Sodium 137 mmol/L (136-145); Total Protein 7.6 g/dL (6.6-8.7)
[2025-06-04 23:40] LABS: Lactic Sepsis W/Reflex 0.7 mmol/L (0.5-2.2)
[2025-06-05] VITALS (9 sets, daily range): BP systolic 99–133; BP diastolic 59–75; PULSE 97–120; RESP 14–20; TEMP 37.3–39.4; O2SAT 98–100
[2025-06-05] MEDS: HYDROmorphone 0.5 MG/0.5 ML INJ 1 MG IVP (01:25)
[2025-06-05] MEDS: mupirocin oint 22 gm 1 APPLIC TOPICAL (01:56)
[2025-06-05] MEDS: piperacillin-tazobactam 3.375 GM in sodium chloride 0.9% (plus) 50 ML IV ×4 (05:20→23:37)
[2025-06-05] MEDS: morphine 4 mg/mL SDV 1 mL IVP ×2 (05:20→19:57)
[2025-06-05 05:27] LABS: Add Urine Microscopic? NO
[2025-06-05 05:34] LABS: Glucose Urine UA Negative (Normal); Nitrate Urine Negative (Negative)
[2025-06-05 05:38] LABS: Specific Gravity, Urine 1.064 (1.005-1.030)
[2025-06-05 05:39] LABS: Charge for UA Resulting for Rev
--- NOTE | 2025-06-05 08:44 | P.PN_ITS ---
Subjective 2 Subjective: Feels tired, was able to eat and walk at home, no real pain. Vitals/I&O/Wt Last Vital Signs Temp 103 F H 06/05/25 07:22 Pulse 120 H 06/05/25 07:22 Resp 15 06/05/25 07:22 BP 128/75 06/05/25 07:22 Pulse Ox 100 06/05/25 07:22 O2 Del Method Room Air 06/05/25 07:22 06/04/25 06/05/25 06/05/25 22:59 06:59 14:59 Intake Total 1050 / 1050 157 / 157 Output Total 0 / 0 Balance 1050 / 1050 157 / 157 Weight last 48 hrs Weight 305 lb Weight 305 lb 8 oz Weight 303 lb 8 oz Physical Exam 2 Narrative: Appearance: grossly normal Attitude: calm and engaged, appropriate eye contact Const: no acute distress, oriented x3 cooperative Breast : soft no signs infection Chest: Symmetrical chest wall rise Resp: normal respiratory effort, clear to auscultation bilaterally Cardio: regular rate and regular rhythm GI: Soft to palpation, incision fully intact, skin above that with induration and color change red, Extremity: normal inspection, mild pedal edema Neuro: oriented x3 and moves all extremities, speech normal Psych: mental status grossly normal, and Normal thought process present Skin: no rashes or lesions noted Data 06/04/25 23:05 06/04/25 23:05 Micro: Microbiology 06/04/25 23:37 Blood Culture - Preliminary Blood SPECIMEN COLLECTED 06/04/25 23:34 Blood Culture - Preliminary Blood SPECIMEN COLLECTED A&P Assessment and plan 1. Cellulitis: There is material collection above fascia reviewed with Radiologist, don't believe it would drain as not liquid material. Try IV zosyn, dose changed reflective of soft tissue infection. Should see improvement in 24-48 hours with total duration to include oral od 14 days. 2. fever: 3. Morbid obesity: PDMP PDMP Reviewed: Not Reviewed Attestations 2 Medical Necessity Statement*: On abx Coding Level of Care Code Acute Code for [facility] Diagnoses Cellulitis L03.90 fever O86.4 Morbid obesity E66.01
[2025-06-05] MEDS: ondansetron 2 mg/ML SDV 2 mL 4 MG IVP ×2 (09:49→20:15)
[2025-06-06] VITALS (11 sets, daily range): BP systolic 109–145; BP diastolic 58–78; PULSE 101–117; RESP 14–20; TEMP 37.3–39.4; O2SAT 95–99
[2025-06-06] MEDS: morphine 4 mg/mL SDV 1 mL IVP ×2 (00:43→11:17)
[2025-06-06] MEDS: LORazepam 2 mg/mL INJ 1 mL 0.5 MG IVP (01:51)
[2025-06-06] MEDS: piperacillin-tazobactam 3.375 GM in sodium chloride 0.9% (plus) 50 ML IV ×3 (05:01→21:19)
--- NOTE | 2025-06-06 07:17 | PC.NURSE ---
Pt passed big tissue like object from vagina this morning when on toilet. This nurse put into biohazard container and bag. Dr. Ribera notified and he said to contact Dr. Camara if additional bleeding after passing. Dr. Camara notified and she said she will come look at it during rounds.
--- NOTE | 2025-06-06 09:06 | PM.PN ---
Subjective Subjective: About the same, fever last night. Eating, constipated. Voiding ok. Vitals/I&O/Wt Last Vital Signs Temp 99.4 F 06/06/25 07:30 Pulse 104 H 06/06/25 07:30 Resp 16 06/06/25 07:30 BP 109/65 06/06/25 07:30 Pulse Ox 95 06/06/25 07:30 O2 Del Method Room Air 06/06/25 07:30 06/05/25 06/06/25 06/06/25 22:59 06:59 14:59 Intake Total 633.5 / 1960.083 100 / 2060.083 Output Total 502 Balance 633.5 / 1460.083 98 / 1558.083 Weight last 48 hrs Weight 305 lb 11.2 oz Weight 305 lb Weight 305 lb 8 oz Weight 303 lb 8 oz Physical Exam Narrative: Appearance: grossly normal Attitude: calm and engaged, appropriate eye contact Const: no acute distress, oriented x3 cooperative Chest: Symmetrical chest wall rise Resp: normal respiratory effort, clear to auscultation bilaterally Cardio: regular rate and regular rhythm GI: Soft to palpation, unchanged, red still, no Guarding, no masses Extremity: normal inspection, + pedal edema Neuro: oriented x3 and moves all extremities, speech normal Psych: mental status grossly normal, and Normal thought process present Skin: no rashes or lesions noted Data 06/04/25 23:05 06/04/25 23:05 Micro: Microbiology 06/04/25 23:37 Blood Culture - Preliminary Blood NEGATIVE TO DATE 06/04/25 23:34 Blood Culture - Preliminary Blood NEGATIVE TO DATE A&P Assessment and plan 1. Cellulitis: Consult ID for antibiotic guidance of subcutaneous wound infection. POD#20 from [facility]. 2. fever: 3. delivery indicated due to breech presentation: PDMP PDMP Reviewed: Not Reviewed Attestations Medical Necessity Statement*: Infection, stay unknown. Coding Level of Care Code Acute Code for [facility] Diagnoses Cellulitis L03.90 fever O86.4 delivery indicated due to breech presentation O32.1XX0
[2025-06-06] MEDS: ondansetron 2 mg/ML SDV 2 mL 4 MG IVP ×2 (10:47→19:47)
--- NOTE | 2025-06-06 11:03 | PM.CONSULT ---
Providers/Reason For Consult Consulting Physician/Specialty*: Olga Lidia Garcia MD/Infectious Disease Reason for Consult*: abdominal cellulitis Requesting Physician: Saundra Camara MD Attending Physician: Neptali Ribera MD Primary Care Provider: Slim Salas MD History of Present Illness History of Present Illness Seen Via telehealth Maida Reyes is a 30 year old female who is 3 weeks post after having had a C section. 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 She was previously having heavy vaginal bleeding which has now improved. CT of the abdomen and pelvis showed fluid collection under the incision site, with a 17 x 6 cm collection possible abscess with overlying skin thickening. CXR without consolidation. UA + Blood, + WBC, + leukocyte esterase, negative urine culture. Sludge noted in gallbladder but LFTs WNL. No RUQ pain. Not currently . Does not report any breast tenderness. 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 This afternoon, there is noted to be a spontaneous opening with drainage of thick material from the site. Review of Systems General: Reports: 10 or more systems reviewed and unremarkable except in HPI and below Const: Reports: fever(s) and chills; Denies: body aches Eyes: Denies: change in vision, blurry vision or photophobia ENMT: Reports: hoarseness; Denies: throat pain, enlarged tonsils, odynophagia or nasal congestion Card: Denies: chest pain, palpitations, irregular heart rhythm, edema, swelling of feet/ankles, lightheadedness, pre-syncope, dyspnea on exertion or orthopnea Resp: Denies: dyspnea, productive cough, non-productive cough, wheezing, stridor, pain on inspiration, change in phlegm color, hemoptysis or chest congestion GI: Denies: abdominal pain, nausea, vomiting, hematemesis, coffee ground emesis, dysphagia, heartburn, diarrhea, constipation, GI cramping, change in stool character, hematochezia or melena : Denies: flank pain, difficulty voiding, dysuria, urinary frequency, urinary urgency, urinary hesitancy or hematuria Musc: Denies: neck pain, back pain, extremity pain, joint swelling, joint warmth or deformity Neuro: Denies: headache(s), numbness in extremities, weakness in extremities, sensory changes, difficulty walking, frequent falls, dizziness, vertigo, behavioral changes, Slurred speech present or seizure-like activity Psych: Denies: anxiety, depression, suicidal ideation or homicidal ideation Endo: Denies: polyuria, polydipsia, tired all the time, cold intolerance or hot flashes Zheng/Lymph: Denies: easy bruising or easy bleeding Medications/Allergies Home Medications ?Medication ?Instructions ?Recorded ?Confirmed ?Last Taken ?Type vit no.95-ferrous 1 tab PO DAILY 11/07/22 06/05/25 06/04/25 History fumarate 28 mg-folic acid 800 mcg tablet () docusate sodium 100 mg capsule 100 mg PO DAILY 12/17/24 06/05/25 06/05/25 History (Colace) magnesium hydroxide 400 mg/5 mL 5 ml PO DAILY PRN Heartburn 12/17/24 06/05/25 06/04/25 History oral suspension (Milk of Magnesia) L. crispatus, gasseri, jensenii, 1 tab PO DAILY 03/09/25 06/05/25 06/04/25 History rhamnosus 12 billion cell chew tablet ibuprofen 800 mg tablet 800 mg PO TID #0 tabs 05/20/25 06/05/25 06/05/25 Rx hydrocodone 5 mg-acetaminophen 325 1 tab PO Q6H PRN Moderate To 06/04/25 06/05/25 06/04/25 Rx mg tablet Severe Pain #14 tabs ferrous sulfate 325 mg (65 mg 325 mg PO DAILY 06/05/25 06/05/25 06/04/25 History iron) tablet ondansetron HCl 4 mg tablet 4 mg PO Q4H PRN Nausea 06/05/25 06/05/25 Unknown History Allergies Allergy/AdvReac Type Severity Reaction Status Date / Time pepper (genus Capsicum) Allergy Severe hives Verified 06/05/25 07:41 Current Medications Generic Name Dose Route Start Last Admin Trade Name Freq PRN Reason Stop Dose Admin Acetaminophen 500 mg 06/05/25 00:55 06/06/25 10:46 Acetaminophen 500 Mg Tablet PO 500 mg Q4H PRN Administration PAIN Docusate Sodium 100 mg 06/05/25 05:00 06/06/25 05:04 Docusate Sodium 100 Mg Capsule PO 100 mg BID ALEXIA Administration Lactated Ringer's 1,000 mls @ 30 mls/hr 06/05/25 01:00 06/05/25 20:19 Lactated Ringers IV 30 mls/hr .Q24H ALEXIA Administration Piperacillin Sod/Tazobactam 50 mls @ 100 mls/hr 06/05/25 11:45 06/06/25 05:37 Sod 3.375 gm/ Sodium Chloride IV Infused Q6H ALEXIA Infusion Protocol Lorazepam 0.5 mg 06/06/25 00:35 06/06/25 01:51 Lorazepam 2 Mg/Ml Inj 1 Ml IVP 0.5 mg Q4H PRN Administration NAUSEA Morphine Sulfate 4 mg 06/05/25 00:55 06/06/25 00:43 Morphine 4 Mg/Ml Sdv 1 Ml IVP 4 mg Q4H PRN Administration pain Ondansetron HCl 4 mg 06/05/25 00:55 06/06/25 10:47 Ondansetron 2 Mg/Ml Sdv 2 Ml IVP 4 mg Q6H PRN Administration nausea PFSH Acute PFSH: Medical History (Updated 06/07/25 @ 00:00 by CATHERINE Triplett) delivery indicated due to breech presentation Hidradenitis suppurativa On topical clindamycin---follows up with Dr. Wallace PCOS (polycystic ovarian syndrome) Diagnosed with PCOS at the age of 17 when she had irregular cycles. States that she had a hemoglobin A1c in 2019 that was 5.3. Surgical History H/O excision of mass (01/17/22) left chest wall S/P adenoidectomy At the age of 6 Family History Grandfather Heart disease maternal Diabetes paternal and maternal Grandmother Diabetes maternal Heart disease paternal Stroke paternal Father Diabetes Brother Thyroid disease Mother Hypertension Denies family history of Colon cancer Ovarian cancer Hyperlipidemia Breast cancer Uterine cancer Social History Smoking and tobacco/nicotine status: never used tobacco/nicotine Vitals/I&O/Wt Last Vital Signs Temp 99.4 F 06/06/25 07:30 Pulse 104 H 06/06/25 07:30 Resp 16 06/06/25 07:30 BP 109/65 06/06/25 07:30 Pulse Ox 95 06/06/25 07:30 O2 Del Method Room Air 06/06/25 07:30 06/05/25 06/06/25 06/06/25 22:59 06:59 14:59 Intake Total 633.5 / 1960.083 100 / 2060.083 240 / 240 Output Total 2 / 502 300 / 300 Balance 633.5 / 1460.083 98 / 1558.083 -60 / -60 Weight last 48 hrs Weight 138.663 kg Weight 138.346 kg Weight 138.572 kg Weight 137.665 kg Physical Exam Narrative: assessed via telehealth Gen: Awake, alert, uncomfortbale with movements in bed related to abdominal pain, requesting pain medication No tachypnea or visible dyspnea Abd: noted abdominal wall cellulitis, with discharging wound over the right side. Data 06/04/25 23:05 06/04/25 23:05 Micro: Microbiology 06/04/25 23:37 Blood Culture - Preliminary Blood NEGATIVE TO DATE 06/04/25 23:34 Blood Culture - Preliminary Blood NEGATIVE TO DATE Other data: Radiology Impressions Abdomen/Pelvis CT 06/04/25 23:21 IMPRESSION: 1. Fluid collection within the Pfannenstiel incision, concerning for a postoperative abscess, measuring 17.8 x 6.1 cm. Overlying skin thickening and subcutaneous edema, consistent with cellulitis. 2. Sludge in the gallbladder. Ordering Provider/Ordering MD: April Holder Date of Service: 06/04/25 Procedure(s): XR chest 1V portable [id number] Accession Number(s): [id number] Report Number: [id number] WS: [id number] Portable AP upright chest, 06/04/2025 Clinical Data: post fever Comparison: Portable chest, 11/07/2022 Findings: No nodules, masses or effusions are seen. The heart is normal. The pulmonary vascularity is not increased. No pneumonia or pneumothorax is seen. XR/XR chest 1V portable [id number] Impression: Negative chest. [facility] [address] [place] [id number] AKIN HUMPHREY, BLADE GRINDER NAME: Maida Reyes LOC: ER U #: [id number] AGE/SX: 30/F ROOM: RE06/04/[address]: April Holder : 1995 BED: DIS: FAX #: STATUS: DEP ER TLOC: Spec : [id number] Yadira: 06/04/251130 Status: COMP Req : [id number] Recd: 06/04/25-[address]: April Holder Ordered: 4 plex test Test Low Normal High Flag Reference Site Covid PCR Ceph NEGATIVE Negative Influenza A Cep NEGATIVE Negative Influenza B Cep NEGATIVE Negative RSV Ceph NEGATIVE Negative FELIX: Maida Reyes LOC: [facility] U #: [id number] AGE/SX: 30/F ROOM: 276 RE06/05/[address]: Neptali Ribera MD : 1995 BED: 2 DIS: FAX #: STATUS: ADM IN TLOC: Spec #: [id number] Yadira: 06/05/25 Status: RES Req #: [id number] Recd: 06/05/[address]: Maria G Peacock Src: Urine CC SpDesc: Ordered: UC Procedure Result Verified Site Urine Culture Preliminary 06/06/25-1119 NO GROWTH AT 18-24 HOURS A&P Assessment and plan 1. Cellulitis: 2. Skin abscess: Plan: 30 year old lady 3 weeks post from C section currently admitted with fever, abdominal wall cellulitis Per review of chart, collection seen on CT does not appear drainable due to lack of fluid component, likely represnts phlegmon Currently on rx with Zosyn since admission, noted to have drainage today Has risk factors for MRSA infection, add iv vancomycin empirically Wound cx ordered from abdomen, awaited MRSA nasal screen trend leukocytosis with am labs Urine cx negative, CXR no consolidation, RVP negative RSV, flu and covid Not currently , no c/o breast tenderness will follow PDMP PDMP Reviewed: Not Reviewed Coding Level of Care Code Acute Code for [facility] Diagnoses Cellulitis L03.90 Skin abscess L02.91
--- NOTE | 2025-06-06 11:08 | PHA.VACGOAL ---
Vancomycin Goal - Goal Vancomycin Goal:: 10-15 mg/L Vancomycin Indication:: SSTI - Therapy Current therapy:: Pip/Tazo Day of therpy:: Day []of [] . Actual body weight (kg): 305 lb 11.2 oz - Data Labs: WBC 11.95 10^3/uL (3.29-11.43) H 06/04/25 23:05 RBC 4.26 10^6/uL (3.85-5.65) 06/04/25 23:05 Hgb 10.90 g/dL (11.27-16.99) L 06/04/25 23:05 Hct 35.2 % (36-47) L 06/04/25 23:05 MCV 82.6 fl (85-98) L 06/04/25 23:05 MCH 25.6 pg (27-33) L 06/04/25 23:05 MCHC 31.0 g/dL (30-55) 06/04/25 23:05 RDW 15.0 % (12.1-15.1) 06/04/25 23:05 Sodium 137 mmol/L (136-145) 06/04/25 23:05 Potassium 3.8 mmol/L (3.5-5.1) 06/04/25 23:05 Chloride 100 mmol/L (98-107) 06/04/25 23:05 Carbon Dioxide 24 mmol/L (22-29) 06/04/25 23:05 Anion Gap 16.8 (5-19) 06/04/25 23:05 BUN 12 mg/dL (6-20) 06/04/25 23:05 Creatinine 1.1 mg/dL (0.5-0.9) H 06/04/25 23:05 GFR Calculation 57.9 mL/min (90-130) L 06/04/25 23:05 Last dialysis session:: N/A Treatment plan:: new consult Regimen:: NO LD DOSE GIVEN MAINTENANCE DOSE OF 1500 MG Q8H PER DOSING PROTOCOL Follow up:: WILL CONTINUE TO MONITOR AND FOLLOW UP DAILY
--- NOTE | 2025-06-06 11:15 | PC.CHAP ---
Pastoral Care Encounter/Spiritual Assessment Type of Contact [] Declined ton container shipper visit [] Patient/Family/Request visit [] Outpatient visit [] Follow-up visit [] Physician referral [] Code/Alert [] Routine visit [] Staff referral [] Actively dying [] Patient sleeping [] Family support [] [] Out of room [] Palliative care [] [x] Receiving care in room [] Pre-surgical visit [] Trauma [] Long length of stay [] ICU visit [] Other: Relational/Emotional Strength [] Patient feels connected with others/family/visitors/staff [] Distress [] Loneliness/isolation [] Abandonment Spirituality of Patient [] Person of Dana [] Attends Baptism of their Dana [] Believes in Prayer [] Reads Bible or Mormon materials [] There are Spiritual issues to be addressed Ink Technician Interventions [] Prayer [] Active listening [] Non-anxious presence [] Spiritual/emotional support [] Crisis/trauma care [] Spiritual counseling [] Bereavement support [] Provided bereavement packet [] Provided Bible/devotional materials [] Provided toy/stuffed animal, coloring book to patient or family member [] Provided Communion [] Anointing/[place] [] Salvation [] Completed spiritual assessment [] Other: Impact on Illness or Injury [] Angry [] Fearful [] Anxious [] Often cries [] Exhaustion [] Unable to work [] Unable to attend anabaptism [] Unable to walk/stand [] Unable to read [] Unable to drive [] Unable to eat/drink [] Unable to sleep [] Unable to be with family [] Patient intubated [] Other: Summary Time spent with patient
--- NOTE | 2025-06-06 11:36 | PC.NURSE ---
pt reported bm
--- NOTE | 2025-06-06 11:38 | PC.NURSE ---
at approx. 1100 pt c/o pain when nurse doing exam with id via tele cart, pt was found to have an opening to lower right abd under abd panis. notified.
[2025-06-06] MEDS: oxyCODONE 5 mg IR Tab/Cap PO ×2 (14:04→22:07)
[2025-06-06 14:41] LABS: MRSA PCR OZH (swab) NOT DETECTED (Not Detecte)
--- NOTE | 2025-06-06 20:42 | PM.MISC ---
Miscellaneous Note Note: Her incision opened today at 1cm on right side. Its draining copious wine colored fluid. Cultures were done today. Appetite still low, headache off/on. Zofran PRN.Infectious disease added vancomycin today. Continue treatment for wound abscess with cellulitis.
[2025-06-07] VITALS (7 sets, daily range): BP systolic 96–145; BP diastolic 61–72; PULSE 75–100; RESP 16–22; TEMP 36.1–36.9; O2SAT 97–100
[2025-06-07] MEDS: piperacillin-tazobactam 3.375 GM in sodium chloride 0.9% (plus) 50 ML IV ×4 (02:02→21:21)
--- NOTE | 2025-06-07 07:10 | PC.NURSE ---
Addendum entered by Kimberly Blanco LPN 06/07/25 07:14: Pt then stated back, I can't really do much right now. groans and sighs very loudly anytime I enter the room or the baby makes a sound and asks the baby, Why are you doing this, why won't you sleep, why are you crying again and pooping so much. 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 Charge nurse and supervisor char house made aware.
--- NOTE | 2025-06-07 08:33 | P.PN_ITS ---
Subjective 2 Subjective: Assessed via telehealth Tmax 100.8F overnight Vitals/I&O/Wt Last Vital Signs Temp 98.3 F 06/07/25 07:40 Pulse 95 06/07/25 07:40 Resp 17 06/07/25 07:40 BP 96/61 06/07/25 07:40 Pulse Ox 100 06/07/25 07:40 O2 Del Method Room Air 06/07/25 07:40 06/06/25 06/07/25 06/07/25 22:59 06:59 14:59 Intake Total 1123.5 / 1713.5 350 / 2063.5 Balance 1123.5 / 1413.5 350 / 1763.5 Weight last 48 hrs Weight 138.21 kg Weight 138.663 kg Physical Exam 2 Narrative: assessed via telehealth Gen: Awake, alert, uncomfortbale with movements in bed related to abdominal pain, requesting pain medication No tachypnea or visible dyspnea Abd: Abdominal wall cellulitis is improving today, noted 2 areas of dehiscnece with mostly bloody discharge today Data 06/07/25 10:31 06/07/25 10:31 Micro: Microbiology 06/06/25 11:20 Gram Stain - Final Abdomen 06/05/25 03:15 Urine Culture - Preliminary Urine,Clean Catch A&P Assessment and plan 1. Cellulitis: 2. Skin abscess: Plan: 30 year old lady 3 weeks post from C section currently admitted with fever, abdominal wall cellulitis Per review of chart, collection seen on CT does not appear drainable due to lack of fluid component, likely represnts phlegmon Currently on rx with Zosyn since admission, noted to have drainage today Has risk factors for MRSA infection, add iv vancomycin empirically Wound cx ordered from abdomen, awaited MRSA nasal screen trend leukocytosis with am labs Urine cx negative, CXR no consolidation, RVP negative RSV, flu and covid Not currently , no c/o breast tenderness will follow 06/07/25: Improving cellulitis over abdomen. Noted 2 areas of dehiscnece with bloody discharge at this time. Suspect infected hematoma with superinfection, now with spontaneous drainage. Wound care per primary. If fever curve continues to improve next 24 hrs, will plan transition to oral Augmentin + linezolid. Wound cx remains pending. WIll follow PDMP PDMP Reviewed: Not Reviewed Attestations 2 Medical Necessity Statement*: per admitting note Coding Level of Care Code Acute Code for g Fwd Diagnoses Cellulitis L03.315 Site of cellulitis: trunk Site of cellulitis of trunk: perineum Skin abscess L02.91
--- NOTE | 2025-06-07 09:37 | P.PN_ITS ---
Subjective 2 Subjective: POD#21. What a difference drainage makes. DA SILVA improved. Feels better spirits. Hungry this am, had a BM. Pain has lessened. Vitals/I&O/Wt Last Vital Signs Temp 98.3 F 06/07/25 07:40 Pulse 95 06/07/25 07:40 Resp 17 06/07/25 07:40 BP 96/61 06/07/25 07:40 Pulse Ox 100 06/07/25 07:40 O2 Del Method Room Air 06/07/25 07:40 06/06/25 06/07/25 06/07/25 22:59 06:59 14:59 Intake Total 1123.5 / 1713.5 350 / 2063.5 Balance 1123.5 / 1413.5 350 / 1763.5 Weight last 48 hrs Weight 304 lb 11.2 oz Weight 305 lb 11.2 oz Physical Exam 2 Narrative: Appearance: grossly normal Attitude: calm and engaged, appropriate eye contact Const: no acute distress, oriented x3 cooperative Chest: Symmetrical chest wall rise Resp: normal respiratory effort, clear to auscultation bilaterally Cardio: regular rate and regular rhythm GI: Soft to palpation, incision with 1 cm opening, less redness in pannus, less tenderness, no Guarding, no masses Extremity: normal inspection, + pedal edema Neuro: oriented x3 and moves all extremities, speech normal Psych: mental status grossly normal, and Normal thought process present Data 06/04/25 23:05 06/04/25 23:05 Micro: Microbiology 06/06/25 11:20 Gram Stain - Final Abdomen 06/05/25 03:15 Urine Culture - Preliminary Urine,Clean Catch A&P Assessment and plan 1. Postoperative wound abscess: Improving. Fever free since 8 PM last night. Continue IV abx with fever free interval 24-48 hours before considering PO transition. Defer to ID for this plan specifics but finally seem to be heading in right direction. Stay in hospital dictated by this. Blood culture and urine culture negtive. Wound culture pending. 2. Cellulitis: 3. fever: 4. Morbid obesity with BMI of 50.0-59.9, adult: PDMP PDMP Reviewed: Not Reviewed Attestations 2 Medical Necessity Statement*: As in problem list plan Coding Level of Care Code Acute Code for [facility] Fwd Diagnoses Postoperative wound abscess T81.49XA Cellulitis L03.90 fever O86.4 Morbid obesity with BMI of 50.0-59.9, adult E66.01; Z68.43
[2025-06-07 10:43] LABS: Hematocrit 34.1 % (36-47); Hemoglobin 10.40 g/dL (11.27-16.99); Mean Corpuscular HGB Conc 30.5 g/dL (30-55); Mean Corpuscular Hemoglobin 25.4 pg (27-33); Mean Corpuscular Volume 83.4 fl (85-98); Nucleated Red Blood Cells % 0 %; Platelet Count 415 10^3/cmm (157-399); Red Blood Count 4.09 10^6/uL (3.85-5.65); White Blood Count 11.49 10^3/uL (3.29-11.43)
[2025-06-07 11:03] LABS: Alanine Aminotransferase 19 U/L (0-33); Albumin Level 3.5 g/dL (3.5-5.2); Alkaline Phosphatase 97 U/L (35-105); Anion Gap 17.9 (5-19); Aspartate Amino Transferase 18 U/L (0-32); Blood Urea Nitrogen 8 mg/dL (6-20); Calcium 9.5 mg/dL (8.5-10.5); Carbon Dioxide 20 mmol/L (22-29); Chloride 102 mmol/L (98-107); Globulin 3.9 g/dL (1.3-4.6); Glucose 101 mg/dL (65-115); Osmolality Calculated 280 mOsm/kg (285-295); Potassium 3.9 mmol/L (3.5-5.1); Sodium 136 mmol/L (136-145); Total Protein 7.4 g/dL (6.6-8.7)
[2025-06-07] MEDS: oxyCODONE 5 mg IR Tab/Cap PO (21:10)
[2025-06-08] VITALS: BP 100/63; PULSE 82; RESP 16; TEMP 36.8; O2SAT 97
[2025-06-08 00:40] VITALS: RESP 18; O2SAT 98
[2025-06-08] MEDS: oxyCODONE 5 mg IR Tab/Cap PO (00:40)
[2025-06-08] MEDS: piperacillin-tazobactam 3.375 GM in sodium chloride 0.9% (plus) 50 ML IV (02:32)
[2025-06-08 07:33] VITALS: BP 116/71; PULSE 90; RESP 16; TEMP 36.5; O2SAT 98
--- NOTE | 2025-06-08 08:50 | P.PN_ITS ---
Subjective 2 Subjective: POD#22, fever free > 36 hours. Drinking still low appetite but much better spirits. Voids good. Vitals/I&O/Wt Last Vital Signs Temp 97.7 F 06/08/25 07:33 Pulse 90 06/08/25 07:33 Resp 16 06/08/25 07:33 BP 116/71 06/08/25 07:33 Pulse Ox 98 06/08/25 07:33 O2 Del Method Room Air 06/08/25 07:33 06/07/25 06/08/25 06/08/25 22:59 06:59 14:59 Intake Total 1850 / 2140 800 / 2940 Balance 1850 / 2140 800 / 2940 Weight last 48 hrs Weight 303 lb 11.2 oz Weight 304 lb 11.2 oz Physical Exam 2 Narrative: Appearance: grossly normal Attitude: calm and engaged, appropriate eye contact Const: no acute distress, oriented x3 cooperative Chest: Symmetrical chest wall rise Resp: normal respiratory effort, clear to auscultation bilaterally Cardio: regular rate and regular rhythm GI: Soft to palpation, redness gone, tenderness almost resolved, no Guarding, no masses, incision open in 2 spots, right and middle, dissolvable lyn working out of skin. Extremity: normal inspection, trace pedal edema Neuro: oriented x3 and moves all extremities, speech normal Psych: mental status grossly normal, and Normal thought process present Skin: no rashes or lesions noted Data 06/07/25 10:31 06/07/25 10:31 Micro: Microbiology 06/06/25 11:20 Gram Stain - Final Abdomen Wound Culture - Preliminary 06/05/25 03:15 Urine Culture - Final Urine,Clean Catch A&P Assessment and plan 1. Postoperative wound abscess: Trying to refer to wound care and set that up. Would like her to get wound vac and be able to go home today. Spoke to dept manager summer who will assist with this plan. 2. Cellulitis: Improved. 3. fever: Resolved. 4. Morbid obesity: PDMP PDMP Reviewed: Not Reviewed Attestations 2 Medical Necessity Statement*: DC today if ok with ID, wound care. Coding Level of Care Code Acute Code for [facility] Diagnoses Postoperative wound abscess T81.49XA Cellulitis L03.90 fever O86.4 Morbid obesity E66.01
--- NOTE | 2025-06-08 09:05 | PM.OBGYDC ---
Discharge Providers SECOND SHIFT SUPERVISOR Date of Admission: 06/05/25 00:54 Date of Discharge: 06/09/25 Attending Provider at Admission: Neptali Ribera MD Attending Provider at Discharge: Saundra Camara MD Consults: ID, wound care Primary Care Provider: Slim Salas MD Diagnoses at Discharge Discharge Diagnosis 1. Postoperative wound abscess: 2. Cellulitis: 3. fever: 4. Morbid obesity: Reason for Visit Reason for Visit: Fever 103.2 post c sec. insicion open Hospital Course Hospital Course Admitted with wound abscess, and started on zosyn. CT showed fascia intact and infection likely from combination of seroma and hematoma in subcutaneous tissue. Consulted ID and vancomycin was added. Became afebrile once incision opened and started draining. Transitioned to PO medications. Wound opened up further so consulted for possible wound vac and discharge planning. Her insurance required PA so wound packed for appointment with wound care in 2 days. Physical Exam Narrative: Appearance: grossly normal Attitude: calm and engaged, appropriate eye contact Const: no acute distress, oriented x3 cooperative Chest: Symmetrical chest wall rise Resp: normal respiratory effort, clear to auscultation bilaterally Cardio: regular rate and regular rhythm GI: Soft to palpation, redness gone, tenderness almost resolved, no Guarding, no masses, incision open in 2 spots, right and middle, dissolvable lyn working out of skin. Extremity: normal inspection, trace pedal edema Neuro: oriented x3 and moves all extremities, speech normal Psych: mental status grossly normal, and Normal thought process present Skin: no rashes or lesions noted History History History 1 Term Miscarriages/Ectopic Living Children Discharge Data Studies Completed and Pending Completed Studies During Hospitalization Category Date Time Status CT abdomen pelvis w con* [id number] Stat Cat Scan 06/04/25 23:21 Completed Pending at discharge Category Date Time Status Blood Culture Stat Lab 06/04/25 23:37 Results CMP [Comprehensive Metabolic Panel] AM LABS Lab 06/09/25 04:00 Ordered Complete Blood Count w/Auto AM LABS Lab 06/09/25 04:00 Ordered Wound Culture and Gram Stain Routine Lab 06/06/25 11:20 Results Radiology Impressions Abdomen/Pelvis CT 06/04/25 23:21 IMPRESSION: 1. Fluid collection within the Pfannenstiel incision, concerning for a postoperative abscess, measuring 17.8 x 6.1 cm. Overlying skin thickening and subcutaneous edema, consistent with cellulitis. 2. Sludge in the gallbladder. Laboratory Results WBC 11.49 10^3/uL (3.29-11.43) H 06/07/25 10:31 RBC 4.09 10^6/uL (3.85-5.65) 06/07/25 10:31 Hgb 10.40 g/dL (11.27-16.99) L 06/07/25 10:31 Hct 34.1 % (36-47) L 06/07/25 10:31 MCV 83.4 fl (85-98) L 06/07/25 10:31 MCH 25.4 pg (27-33) L 06/07/25 10:31 MCHC 30.5 g/dL (30-55) 06/07/25 10:31 RDW 14.7 % (12.1-15.1) 06/07/25 10:31 Plt Count 415 10^3/cmm (157-399) H 06/07/25 10:31 MPV 9.8 fL (7.4-10.4) 06/07/25 10:31 Neut % (Auto) 82.1 % 06/07/25 10:31 Lymph % (Auto) 8.5 % 06/07/25 10:31 [place] % (Auto) 5.8 % 06/07/25 10:31 Eos % (Auto) 2.6 % 06/07/25 10:31 Baso % (Auto) 0.6 % 06/07/25 10:31 Neut # (Auto) 9.42 10^3/uL (1.8-7.7) H 06/07/25 10:31 Lymph # (Auto) 1.0 10^3/uL (0.8-4.8) 06/07/25 10:31 [place] # (Auto) 0.7 10^3/uL (0.2-0.9) 06/07/25 10:31 Eos # (Auto) 0.3 10^3/uL (0.0-0.8) 06/07/25 10:31 Baso # (Auto) 0.1 10^3/uL (0.0-0.1) 06/07/25 10:31 Nucleated RBC % (auto) 0 % 06/07/25 10:31 Nucleated RBCs # 0.0 /100WBC 06/07/25 10:31 Sodium 136 mmol/L (136-145) 06/07/25 10:31 Potassium 3.9 mmol/L (3.5-5.1) 06/07/25 10:31 Chloride 102 mmol/L (98-107) 06/07/25 10:31 Carbon Dioxide 20 mmol/L (22-29) L 06/07/25 10:31 Anion Gap 17.9 (5-19) 06/07/25 10:31 BUN 8 mg/dL (6-20) 06/07/25 10:31 Creatinine 0.9 mg/dL (0.5-0.9) 06/07/25 10:31 GFR Calculation 73.0 mL/min (90-130) L 06/07/25 10:31 Glucose 101 mg/dL (65-115) 06/07/25 10:31 Calculated Osmolality 280 mOsm/kg (285-295) L 06/07/25 10:31 Lactic Acid 0.7 mmol/L (0.5-2.2) 06/04/25 23:05 Calcium 9.5 mg/dL (8.5-10.5) 06/07/25 10:31 Total Bilirubin 0.5 mg/dL (0.15-1.2) 06/07/25 10:31 AST 18 U/L (0-32) 06/07/25 10:31 ALT 19 U/L (0-33) 06/07/25 10:31 Alkaline Phosphatase 97 U/L (35-105) 06/07/25 10:31 C-Reactive Protein 147.1 mg/L (0.0-4.9) H 06/04/25 23:05 Total Protein 7.4 g/dL (6.6-8.7) 06/07/25 10:31 Albumin 3.5 g/dL (3.5-5.2) 06/07/25 10:31 Globulin 3.9 g/dL (1.3-4.6) 06/07/25 10:31 Urine Color Yellow (Yellow) 06/05/25 03:15 Urine Appearance Clear (CLEAR) 06/05/25 03:15 Urine pH 5.5 (5-7) 06/05/25 03:15 Ur Specific [place] 1.064 (1.005-1.030) H 06/05/25 03:15 Urine Protein 1+ (Negative) A 06/05/25 03:15 Urine Glucose (UA) Negative (Normal) 06/05/25 03:15 Urine Ketones Negative (Negative) 06/05/25 03:15 Urine Blood 3+ (Negative) A 06/05/25 03:15 Urine Nitrate Negative (Negative) 06/05/25 03:15 Urine Bilirubin Negative (Negative) 06/05/25 03:15 Urine Urobilinogen 0.2 mg/dL (Negative) 06/05/25 03:15 Ur Leukocyte Esterase 1+ (Negative) A 06/05/25 03:15 Urine RBC 51-100 /hpf (0-2) H 06/05/25 03:15 Urine WBC 51-100 /hpf (0-5) H 06/05/25 03:15 Ur Squamous Epith Cells 0-5 /hpf (0-5) 06/05/25 03:15 Amorphous Sediment Not Reportable 06/05/25 03:15 Urine Bacteria None seen /hpf (NONE) 06/05/25 03:15 Hyaline Casts 1.21 /lpf 06/05/25 03:15 Nasal MRSA (PCR) Not detected (Not Detecte) 06/06/25 11:20 Vancomycin Trough 24.2 ug/mL (10-15) H 06/07/25 10:31 Vitals Last Vital Signs Temp 97.7 F 06/08/25 07:33 Pulse 90 06/08/25 07:33 Resp 16 06/08/25 07:33 BP 116/71 06/08/25 07:33 Pulse Ox 98 06/08/25 07:33 O2 Del Method Room Air 06/08/25 07:33 Results Labs OB ([facility]): Obstetrics US 05/01/25 Blood Type O Positive 05/17/25 Antibody Screen Negative 05/17/25 Hct, (36-47) 34.1 % L 06/07/25 Hgb, (11.27-16.99) 10.40 g/dL L 06/07/25 Rho(D) Type Rh positive 05/17/25 Plt Count, (157-399) 415 10^3/cmm H 06/07/25 Hep Bs Antigen, (Nonreactive) Non-reactive 11/05/24 Hepatitis C Antibody, (Nonreactive) Non-reactive 11/05/24 Rubella IgG Antibody, (0.0-10.0) 82.9 IU/mL H 11/05/24 RPR, (Nonreactive) Nonreactive 11/05/24 HIV 1&2 Ab & HIV 1 Ag, (Non-Reactiv) Non-reactive 11/05/24 TSH, (0.27-4.20) 2.43 uIU/mL 04/02/25 Free T4, (0.82-1.77) 1.09 ng/dL 04/15/24 T. vaginalis Amp RNA, (NOT DETECTED) Not detected 10/24/24 Glucose 1 Hr 50 gm, (85-140) 153 mg/dL H 03/09/25 Gest Glucose Tolerance mg/dL 03/13/25 Hemoglobin A1c, (4.0-6.0) 5.5 % 12/17/24 Uric Acid, (2.4-5.7) 6.1 mg/dL H 05/07/25 Ser , Semi-Qnt 18.81 mIU/mL 05/30/25 HCG, Qual, (Negative) Positive H 10/28/24 Urine Opiates Screen, (Negative) Negative ng/mL 11/05/24 Ur Barbiturates Screen, (Negative) Negative ng/mL 11/05/24 Ur Phencyclidine Scrn, (Negative) Negative ng/mL 11/05/24 Ur Amphetamines Screen, (Negative) Negative ng/mL 11/05/24 U Benzodiazepines Scrn, (Negative) Negative ng/mL 11/05/24 Urine Cocaine Screen, (Negative) Negative ng/mL 11/05/24 U Marijuana (THC) Screen, (Negative) Negative ng/mL 11/05/24 Micro Urine Specimen 06/05/25 Pap Smear Interpret See comment 01/04/24 Discharge Plan Discharge Patient Disposition: Home Condition: Stable Prescriptions: New linezolid 600 mg Tablet 600 mg PO Q12H 7 Days Qty: 14 0RF amoxicillin-pot clavulanate 875-125 mg Tablet 1 tab PO BID 7 Days Qty: 14 0RF Continued L.crispat,gasseri,duran,rhamn 12 billion cell tablet,chewable 1 tab PO DAILY magnesium hydroxide [Milk of Magnesia] 400 mg/5 mL suspension 5 ml PO DAILY PRN (Reason: Heartburn) docusate sodium [Colace] 100 mg capsule 100 mg PO DAILY PNV no.95-ferrous fumarate-FA [] 28 mg iron- 800 mcg Tablet 1 tab PO DAILY ibuprofen 800 mg Tablet 800 mg PO TID Qty: 0 0RF hydrocodone-acetaminophen 5-325 mg tablet 1 tab PO Q6H PRN (Reason: Moderate To Severe Pain) Qty: 14 0RF ondansetron HCl 4 mg tablet 4 mg PO Q4H PRN (Reason: Nausea) ferrous sulfate 325 mg (65 mg iron) Tablet 325 mg PO DAILY Business Performance Specialist OK for DC: Infectious Disease and Wound Care Discharge Order = DC NOW: Discharge Order (Routine); Ordered 06/08/25 Ordered By: Saundra Camara Referrals: Kai Berumen MD [Physician, Wound Care] - 06/10/25 1:15 pm Referral Note: post c section wound dehiscence, infected hematoma Slim Salas MD [Primary Care Provider, [facility]] - 06/10/25 9:00 am Referral Note: Saundra Camara MD [Physician, SECOND SHIFT SUPERVISOR] - 06/17/25 1:30 pm Referral Note: Discharge Diet: Usual diet Discharge Activity: Limit activity as instructed Patient Instructions: Amoxicillin/Clavulanate Potassium (By mouth), Linezolid (By mouth), (GEN) Discharge Attestations SECOND SHIFT SUPERVISOR Time Spent in Discharge Care*: less than 30 min Coding Level of Care Code Acute Code for Chg Fwd Diagnoses Postoperative wound abscess T81.49XA Cellulitis L03.315 Site of cellulitis: trunk Site of cellulitis of trunk: perineum fever O86.4 Morbid obesity E66.01
[2025-06-08 11:06] VITALS: BP 113/64; PULSE 73; RESP 16; TEMP 36.7; O2SAT 98
--- NOTE | 2025-06-08 13:58 | PC.NURSE ---
Discussed discharge medications, follow up appointments as well as instructed and educated patient on wet to dry dressing. Patient verbalized understanding.
[2025-06-08 14:22] VITALS: BP 113/64; PULSE 73; RESP 16; TEMP 36.7; O2SAT 98
--- NOTE | 2025-06-11 15:31 | PC.NURSE ---
regarding surgery on 06/12/2025: was asked by OR team to contact pt and give instructions prior to surgery. called patient at primary phone number listed in chart. informed pt to be NPO starting at 0000 on 06/12/2025. instructed pt to take evening dose of hydrocodone, linezolid, and augmentin prior to 0000. informed pt to arrive at [facility]PS between [id number] for check-in with a driver education road instructor. pt verbalized understanding of instructions and demonstrated teach-back discussion.
== END 2025-06-08 14:40 | disposition home or self-care (01) | DRG 776 ==
LOC: ER 06-05 01:01 → MEDSURG 06-05 01:29
PROVIDERS: Student in an Organized Health Care Education/Training Program; Admitting Provider Obstetrics & Gynecology; Emergency Provider Physician Assistant; PCP Family Medicine; Visit Provider Obstetrics & Gynecology
DX: O86.01 Infection of obstetric surgical wound, superficial incisional site (principal); O90.0 Disruption of cesarean delivery wound; O99.215 Obesity complicating the puerperium; E66.01 Morbid (severe) obesity due to excess calories; K59.00 Constipation, unspecified; Z91.018 Allergy to other foods; R51.9 Headache, unspecified
CPT/HCPCS: 36415; 74177; 80053; 80202; 81003; 83605; 85025; 86140; 87040; 87070; 87075; 87077; 87086; 87186; 87205; 96365; 96375; 99285; J1171; J1580; J2060; J2270; J2405; J2543; J3373; J3490; J7030; J7120; J9999

== ENCOUNTER 2025-06-12 06:35 | Day surgery (SDC) | payer OTHER, BC, SELFPAY ==
[2025-06-12] VITALS (8 sets, daily range): BP systolic 102–128; BP diastolic 75–90; PULSE 57–72; RESP 16–18; TEMP 36.2–36.3; O2SAT 95–99; BMI 48.1
--- NOTE | 2025-06-12 07:40 | PM.OPHPUD ---
Labor & Delivery H&P Update Date of Procedure: June 12, 2025 Date H&P Performed: 06/12/25 Changes to previous documentation: 30 yo who was treated in hospital for post operative wound abscess and cellulitus after c section. She improved to discharge and then was seen by Dr. Berumen at wound care. He told me the wound needed opened up more to improve healing and he couldn't clean out some clotted blood due to pain limitations. He agreed with wound vac after I&D. Due to holiday and logistics this was scheduled for 06/12/25. Admission Diagnosis: wound abscess after section Primary indication for procedure: Wound abscess, needs opened for improved healing Planned procedure: Operation Date: 06/12/25 08:00 Proposed Procedures p Incision And Drainage(Not Applicable) - Saundra Camara MD
--- NOTE | 2025-06-12 08:02 | ANES.PREANE2 ---
Pre-Anesthetic Assessment Height/Weight: Height 1.68 m Weight 135.171 kg O2 Del Method Room Air 06/12/25 07:05 Operation Date: 06/12/25 08:00 Proposed Procedures p Incision And Drainage(Not Applicable) - Saundra Camara MD Familial anesthetic complications: None Was Beta Live taken within 24 hours: N/A Was Clonidine taken within 24 hours: N/A Last intake: Intake Last Liquid Date 06/11/25 Last Liquid Time 23:00 Last Solid Date 06/11/25 Last Solid Time 20:00 Social No alcohol and No tobacco Exam alert, oriented x 3, clear to auscultation bilaterally and regular rate & rhythm Airway Mallampati: Class IV Metabolic Morbid Obesity pcos Anesthetic Plan ASA status: 3 Anesthesia: MAC Risk of > 500 ml blood loss (7ml/kg in children): No Medications/Allergies Home Medications ?Medication ?Instructions ?Recorded ?Confirmed ?Last Taken ?Type vit no.95-ferrous 1 tab PO DAILY 11/07/22 06/12/25 06/10/25 History fumarate 28 mg-folic acid 800 mcg tablet () docusate sodium 100 mg capsule 100 mg PO DAILY 12/17/24 06/12/25 06/05/25 History (Colace) magnesium hydroxide 400 mg/5 mL 5 ml PO DAILY PRN Heartburn 12/17/24 06/12/25 06/04/25 History oral suspension (Milk of Magnesia) L. crispatus, gasseri, jensenii, 1 tab PO DAILY 03/09/25 06/12/25 06/11/25 History rhamnosus 12 billion cell chew tablet ibuprofen 800 mg tablet 800 mg PO TID #0 tabs 05/20/25 06/12/25 06/11/25 Rx ferrous sulfate 325 mg (65 mg 325 mg PO DAILY 06/05/25 06/12/25 06/10/25 History iron) tablet ondansetron HCl 4 mg tablet 4 mg PO Q4H PRN Nausea 06/05/25 06/12/25 06/11/25 History amoxicillin 875 mg-potassium 1 tab PO BID 7 days #14 tabs 06/08/25 06/12/25 06/11/25 Rx clavulanate 125 mg tablet linezolid 600 mg tablet 600 mg PO Q12H 7 days #14 tabs 06/08/25 06/12/2506/11/25 Rx hydrocodone 5 mg-acetaminophen 325 1 tab PO Q6H PRN Moderate To 06/10/25 06/12/25 06/11/25 Rx mg tablet Severe Pain 4 days #14 tabs Allergies Allergy/AdvReac Type Severity Reaction Status Date / Time pepper (genus Capsicum) Allergy Severe hives Verified 06/05/25 07:41 [facility] Anesthesia Medical History (Updated 06/12/25 @ 00:00 by CATHERINE Triplett) Postoperative wound abscess delivery indicated due to breech presentation Hidradenitis suppurativa On topical clindamycin---follows up with Dr. Wallace PCOS (polycystic ovarian syndrome) Diagnosed with PCOS at the age of 17 when she had irregular cycles. States that she had a hemoglobin A1c in 2020 that was 5.3. Surgical History (Updated 06/10/25 @ 09:36 by Slim Salas MD) Hx of section H/O excision of mass (01/17/22) left chest wall S/P adenoidectomy At the age of 6 Family History Grandfather Heart disease maternal Diabetes paternal and maternal Grandmother Diabetes maternal Heart disease paternal Stroke paternal Father Diabetes Brother Thyroid disease Mother Hypertension Denies family history of Colon cancer Ovarian cancer Hyperlipidemia Breast cancer Uterine cancer Social History Smoking and tobacco/nicotine status: never used tobacco/nicotine
--- NOTE | 2025-06-12 09:03 | PM.OP ---
Operative Report Date of procedure: June 12, 2025 Pre-op diagnosis: Post operative Wound abscess Post-op diagnosis: same Procedure done: Incision and drainage, wound washing, wound vacuum placement Specimens removed/disposition: none Surgeon: Saundra Camara MD Estimated blood loss: 20 Findings: wound open 3 cm, incised 10 cm, 3 cm deep Procedure: Patient given conscious sedation, packing of strip of kerlex removed. Betadine prep. Lidocaine local applied to healed incision above and below 10 cc. I then incised the prior scar. Tissue was probed and opened to 3 cm depth. Total opening by knife was 10 cm wide. Tissue irrigated. Scant dried blood removed. Tissue bed cleaned with sponge. Cautery applied to skin edges. Black foam cut to size and wound dressing applied and vacuum seal obtained.
[2025-06-12] MEDS: fentaNYL 50 mcg/mL INJ 2mL IVP (09:10)
--- NOTE | 2025-06-12 09:15 | ANES.PROC ---
Anesthesia Procedures Procedure/Date: 06/12/25 Epidural: Time Out Performed: Yes Consents Signed: Procedure Consent Consent: from patient, from other, risks and benefits reviewed and patient agrees to proceed Lumbar Level: L3-L4 Epidural position: sitting Epidural procedure: sterile prep of area, 1% lidocaine to numb the area and 18 g needle Additional Comments: DORIS at 9 cm, injected 20 cc of blood obtained in sterile-technique from Josie Sylvester R.N. Patient reported feeling her headache go away immediately as heme was injected Instructed to lay flat for 1 hr Given instructions to notify healthcare provider or go to ER for red flags symptoms including erythema at site, purulence, loss of bowel or bladder control, lower extremity weakness or numbness
[2025-06-12] MEDS: HYDROcodone-acetaminophen 7.5-325 mg Tablet 1 TAB PO (09:49)
--- NOTE | 2025-06-12 10:40 | ANE.PACU2 ---
Inpatient post-anesthesia follow up: Airway intact: Yes Vital signs: Temperature 97.2 F Pulse Rate 64 Respiratory Rate 18 Blood Pressure 112/78 Pulse Oximetry 98 Oxygen Delivery Me thod Room Air Oxygen Flow Rate Fraction of Inspir ed Oxygen Hydration adequate: Yes Mental status: Baseline
== END 2025-06-12 10:40 | disposition home or self-care (01) ==
PROVIDERS: PCP Family Medicine; Visit Provider Obstetrics & Gynecology
PROC: (CPT 97607; principal; 2025-06-12 08:00)
DX: T81.40XA Infection following a procedure, unspecified, initial encounter (principal); Y69 Unspecified misadventure during surgical and medical care; E66.01 Morbid (severe) obesity due to excess calories; Z68.42 Body mass index [BMI] 45.0-49.9, adult; E28.2 Polycystic ovarian syndrome; Z79.891 Long term (current) use of opiate analgesic
CPT/HCPCS: 97607; 97597; J1100; J2250; J2405; J2704; J3010; J7030; J9999